=== PATIENT | male | born 1955 | race Caucasian/White ===

== ENCOUNTER 2022-04-28 15:18 | Inpatient (IN) | payer MEDICARE, OTHER ==
[~2022-04-28] VITALS: Ht 165.1 cm; Wt 78.0 kg
--- NOTE | 2022-04-28 15:45 | NUR ---
WITH TRACH TO MECHINCAL VENT SITTING AC 10 FIO2 40% PEEP 5 TV 500
--- NOTE | 2022-04-28 15:46 | NUR ---
RT AT BEDSIDE FOR VENT SETUP
--- NOTE | 2022-04-28 15:58 | NUR ---
called анна at [facility]. pt. needs to be seen and evaluated by MD before sending him back to facility if stable. facility contact number [phone]
--- NOTE | 2022-04-28 16:30 | NUR ---
INSERTED ANGO CATH # 20 ON LT HAND PATENT WILL BLOOD DROW AND SENT TO LAB
--- NOTE | 2022-04-28 16:55 | NUR ---
BLOOD CULTURE # 2 BLOOD DROW BY LAB TACH
[2022-04-28] MEDS ORDERED: VANCOMYCIN 1 GM in IV D5W 250 ML IV ONE (17:00)
[2022-04-28 17:16] LABS: BASOPHILS % (AUTO) 0.2 % (0.0-2.0); HEMATOCRIT 29 % (39-51); HEMOGLOBIN 9.2 g/dL (13.5-17.5); LYMPHOCYTES % (AUTO) 10.7 % (20.0-44.0); MEAN CORPUSCULAR HGB CONC 31 g/dl (31.0-36.0); MEAN CORPUSCULAR VOLUME 93 fL (80-96); MONOCYTES % (AUTO) 5.4 % (2.0-12.0); NEUTROPHILS # (AUTO) 15.4 K/uL (1.8-8.9); NEUTROPHILS % (AUTO) 82.7 % (43.0-81.0); PLATELET COUNT (AUTO) 501 K/uL (150-450); RED BLOOD CELL COUNT(AUTO) 3.16 MIL/uL (4.5-6.0); WHITE BLOOD COUNT (AUTO) 18.6 K/uL (4.3-11.0)
[2022-04-28 17:25] LABS: CALCIUM, SERUM 8.5 mg/dL (8.5-10.1); CREATININE 2.9 mg/dL (0.6-1.3)
--- NOTE | 2022-04-28 17:55 | NUR ---
US AT BED SIDE FOR RT ARM SWALLEN AND REDNESS
--- NOTE | 2022-04-28 18:34 | NUR ---
VITAL SIGNS WITHIN NORMAL LIMITS.
--- NOTE | 2022-04-28 19:30 | NUR ---
ARABELLA PICKARD SENT TO LAB
--- NOTE | 2022-04-28 19:34 | NUR ---
HAND OFF LARA CAT
[2022-04-28 19:58] LABS: BAND % (MANUAL) 3 % (0.0-5.0); LYMPHOCYTES % (MANUAL) 17 % (16-48); MONOCYTES % (MANUAL) 8 % (0-11.0); NEUTROPHILS % (MANUAL) 72 (42-76)
[2022-04-28] MEDS ORDERED: ONDANSETRON HCL/PF 4 MG/2 ML VIAL IVP PRN (22:00)
[2022-04-28] MEDS ORDERED: MAGNESIUM HYDROXIDE 30 ML UDC PO PRN (22:00)
[2022-04-28] MEDS ORDERED: MAG HYDROX/AL HYDROX/SIMETH 30 ML UDC PO PRN (22:00)
[2022-04-28] MEDS ORDERED: ZOLPIDEM TARTRATE 5 MG TABLET PO PRN (22:00)
[2022-04-28] MEDS ORDERED: Z GUARD REMEDY 4 OZ OINT TP PRN (22:00)
[2022-04-28] MEDS ORDERED: ACETAMINOPHEN 325 MG TABLET PO PRN (22:00)
[2022-04-29] MEDS ORDERED: PIPERACILLIN /TAZOBACTAM 3.375 G in IV D5W 50 ML IV SCH ×2
--- NOTE | 2022-04-29 00:09 | NUR ---
REPORT GIVEN TO ABIMBOLA CAT FOR JOSUE
[2022-04-29] MEDS ORDERED: FOLI0.8T2 GT (00:21)
[2022-04-29] MEDS ORDERED: HYDR100T27 GT (00:21)
[2022-04-29] MEDS ORDERED: ACET-868 GT (00:21)
[2022-04-29] MEDS ORDERED: HYDR-4076 GT (00:21)
[2022-04-29] MEDS ORDERED: LEVO25TA7 GT (00:21)
[2022-04-29] MEDS ORDERED: ATOR10TA GT (00:21)
[2022-04-29] MEDS ORDERED: INSU100V7 SQ (00:21)
[2022-04-29] MEDS ORDERED: POLY17PO4 GT (00:21)
[2022-04-29] MEDS ORDERED: DEXT15DR6 EACHEYE (00:21)
[2022-04-29] MEDS ORDERED: HYDR-500 GT (00:21)
[2022-04-29] MEDS ORDERED: DOCU-141 GT (00:21)
[2022-04-29] MEDS ORDERED: IPRA3AMP23 IH (00:21)
[2022-04-29] MEDS ORDERED: HEPA500014 SQ (00:21)
[2022-04-29 00:40] VITALS: BP 127/78
--- NOTE | 2022-04-29 01:00 | NUR ---
UROLOGY PHYSICIAN ASSISTANT OPENING NOTE PATIENT ARRIVED ON UNIT, PATIENT NON-VERBAL BUT ABLE TO UNDERSTAND [place] AND NOD HIS HEAD TO YES OR NO QUESTIONS. PT ON MECHANICAL VENT WITH SETTINGS AC 10, FIO2 40%, PEEP 5, TV 500, TOLERATING WELL, SPO2: 99%. PATIENT CONNECT TO EXTERNAL ENTREPRENEURSHIP PROGRAM DIRECTOR READING SINUS RHYTHM, HR: 78. IV ACCESS ON LEFT HAND #20G INTACT AND FLUSHING WELL. PATIENT NOTED WITH GTF, AUSCULTATED TO CONFIRM PLACEMENT. PATIENT NOTED WITH RIGHT FEMORAL HD CATH. PATIENT HAS NO BELONGINGS. PATIENT NOTED WITH LEFT BIG TOE AMPUTATION, RIGHT UPPER ARM REDNESS AND SWELLING, GROIN AND ABDOMINAL FOLD REDNESS AND SACRAL REDNESS, PT ALSO NOTED WITH DRY AND PEELING SKIN THROUGHOUT BODY, PHOTOS TAKEN. SAFETY MEASURES IN PLACE: CALL LIGHT WITHIN REACH, SIDE RAILS UP X 3, HOB ELEVATED, BED ALARM ON, BED LOCKED IN LOWEST POSITION. WILL CONTINUE TO MONITOR PATIENT
[2022-04-29] MEDS ORDERED: PIPERACILLIN /TAZOBACTAM 2.25 G VIAL IV ONE ×2 (01:27→06:16)
[2022-04-29] MEDS: ZOSYN IVPB 2.25 G in IV D5W 50ml IV SCH ×4 (01:39→17:22)
[2022-04-29] MEDS ORDERED: POTASSIUM CHLORIDE 20 MEQ POWDER PACKET GT ONE (02:00)
[2022-04-29] MEDS ORDERED: DEXTROSE 50%-WATER 50 ML DISP.SYRIN IV PRN (02:00)
[2022-04-29] MEDS ORDERED: HYDROCODONE/APAP 10/325MG TABLET PO PRN (02:00)
[2022-04-29] MEDS ORDERED: ACETAMINOPHEN 325 MG TABLET MC PRN (02:00)
[2022-04-29] MEDS ORDERED: Medication Not On Formulary EA (Ipratropium/Albuterol Sulfate (Duoneb 2.5-0.5 Mg/3 Ml So IH PRN (02:00)
[2022-04-29] MEDS ORDERED: hydrALAZINE HCL 50 MG TABLET GT PRN (02:30)
[2022-04-29] MEDS ORDERED: ALBUTEROL FS 2.5 MG/0.5 ML VIAL.NEB NEB PRN (02:30)
[2022-04-29] MEDS ORDERED: IPRATROPIUM NEB FS 0.5 MG/2.5 ML AMPUL.NEB IH PRN (02:30)
[2022-04-29] MEDS: NEPRO 1,000 ML BOTTLE GT PRN (03:35)
--- NOTE | 2022-04-29 03:58 | NUR ---
TROMMEL TENDER NOTE CONTACTED OIL WELL CABLE TOOL DRILLER MD REGARDING LAB POTASSIUM 3.0, ALSO REGARDING SLIDING SCALE INSULIN AND GT FEEDING, WELL AT VTE PROPHYLAXIS AND PAIN MEDICATION FOR RIGHT UPPER ARM. ORDER FOR KCL 20 MEQ VIA GTUBE, NEPRO @ 65 ML/HR X 16 HOURS, ACCU CHECK Q6H, MODERATE SLIDING SCALE, HEPARIN 5,000 UNITS Q12H STARTING IN AM, AND NORCO 10-325 MG Q6H PRN. ORDERS VERIFIED AND CARRIED OUT
[2022-04-29 04:00] VITALS: BP 100/60
[2022-04-29] MEDS: hydrOXYzine HCL SYRUP 10 MG/5 ML UDC GT SCH ×3 (05:00→21:32)
[2022-04-29] MEDS: hydrALAZINE HCL 25 MG TABLET GT SCH ×3 (05:00→21:00)
[2022-04-29] MEDS ORDERED: hydrOXYzine PAMOATE 25 MG CAPSULE ONE (05:13)
[2022-04-29 06:08] LABS: BASOPHILS % (AUTO) 0.2 % (0.0-2.0); EOSINOPHILS % (AUTO) 1.2 % (0.0-6.0); HEMATOCRIT 27 % (39-51); HEMOGLOBIN 8.6 g/dL (13.5-17.5); LYMPHOCYTES # (AUTO) 1.6 K/uL (0.8-4.8); LYMPHOCYTES % (AUTO) 10.8 % (20.0-44.0); MEAN CORPUSCULAR HGB CONC 32 g/dl (31.0-36.0); MEAN CORPUSCULAR VOLUME 92 fL (80-96); MONOCYTES # (AUTO) 0.9 K/uL (0.1-1.30); MONOCYTES % (AUTO) 6.4 % (2.0-12.0); NEUTROPHILS # (AUTO) 11.8 K/uL (1.8-8.9); NEUTROPHILS % (AUTO) 81.4 % (43.0-81.0); PLATELET COUNT (AUTO) 425 K/uL (150-450); RED BLOOD CELL COUNT(AUTO) 2.88 MIL/uL (4.5-6.0); WHITE BLOOD COUNT (AUTO) 14.5 K/uL (4.3-11.0)
--- NOTE | 2022-04-29 06:26 | NUR ---
ELECTRICAL PROSPECTING OPERATOR NOTE ATARAX MEDICATION NOT AVAILABLE IN [facility], FAXED ORDER TO NURSING BRANDS EDITOR BUT MEDICATION NOT AVAILABLE ON OTHER FLOORS, UNABLE TO GIVE MEDICATION. WILL ENDORSE TO DAYSHIFT RN TO CONTACT PHARMACY
[2022-04-29 06:35] LABS: CALCIUM, SERUM 8.7 mg/dL (8.5-10.1); CREATININE 3.8 mg/dL (0.6-1.3); MAGNESIUM 2.3 mg/dL (1.8-2.4); PHOSPHORUS 3.4 mg/dL (2.5-4.9); POTASSIUM 3.5 mmol/L (3.5-5.1)
[2022-04-29] MEDS: INSULIN REGULAR, HUMAN 100 UNIT/ML 3 ML VIAL SQ PRN ×3 (06:58→17:21)
[2022-04-29] MEDS: BLOOD SUGAR DIAGNOSTIC 1 EACH STRIP IN SCH ×3 (07:00→17:11)
--- NOTE | 2022-04-29 07:35 | NUR ---
ROPE TIER CLOSING NOTE PATIENT AWAKE IN BED, ALERT/ORIENTED TO NAME, PT NON-VERBAL BUT ABLE TO NOD HEAD TO YES/NO QUESTIONS. PT ON MECHANICAL VENT AND TOLERATING SETTINGS WELL, NO S/S OF DISTRESS OR SOB NOTED, BREATHING EVEN AND UNLABORED, SPO2: 98%. PATIENT ON ETERNAL BRAZING MACHINE OPERATOR AUTOMATIC READING SINUS RHYTHM, HR: 63. PATIENT HAS GT FEEDING NEPRO INFUSING @ 65 ML/HR X 16 H. IV ACCESS ON LEFT HAND #20G INTACT AND INFUSING ZOSYN @ 100 ML/HR. MEDICATIONS GIVEN ORDERED, PT NEEDS MET THROUGHOUT SHIFT, PT TURNED Q2H. SAFETY MEASURES IN PLACE: CALL LIGHT WITHIN REACH, SIDE RAILS UP X 3, BED LOCKED IN LOWEST POSITION, HOB ELEVATED, BED ALARM ON. ENDORSED TO DAYSHIFT RN FOR CONTINUITY OF CARE
--- NOTE | 2022-04-29 07:50 | NUR ---
MIXER WET POUR OPENING NOTE PATIENT IS ASLEEP IN BED; EASILY BEING AROUSED, A/O X1, PT NON-VERBAL BUT ABLE TO NOD HEAD TO YES/NO QUESTIONS. PT ON MECHANICAL VENT AND TOLERATING SETTINGS WELL, NO S/S OF DISTRESS OR SOB NOTED, BREATHING EVEN AND NONLABORED. PATIENT ON EXTERNAL DAIRY ASSOCIATE. PATIENT HAS GT FEEDING NEPRO INFUSING @ 65 ML/HR X 16 H. IV ACCESS ON LEFT HAND #20G. SAFETY PRECAUTIONS IMPLEMENTED: CALL LIGHT AND TABLE WITHIN REACH, HOB ELEVATED. SIDE RAILS UP X 2, BED IN LOWEST AND LOCKED POSITION. WILL CONTINUE MONITOR PATIENT'S CONDITION THROUGH THE SHIFT AND PROVIDE THE CARE HE NEEDS.
[2022-04-29 08:00] VITALS: BP 110/61
[2022-04-29 08:08] LABS: IRON, SERUM 30 ug/dl (50-175); TOTAL IRON BINDING CAPACITY 89 ug/dl (250-450)
[2022-04-29] MEDS: POLYETHYLENE GLYCOL 3350 17 GM POWD.PACK GT SCH (08:17)
[2022-04-29] MEDS: POLYVINYL ALCOHOL 15 ML BOTTLE EACHEYE SCH ×4 (08:17→22:04)
[2022-04-29] MEDS: DOCUSATE SODIUM LIQ 100 MG/10 ML UDC GT SCH ×2 (08:17→16:05)
[2022-04-29] MEDS: VIT B CMPLX 3/FA/VIT C/BIOTIN 1 TAB TABLET GT SCH (08:17)
[2022-04-29] MEDS: LEVOTHYROXINE SODIUM 25 MCG TABLET GT SCH (08:18)
[2022-04-29] MEDS: HEPARIN SODIUM, PORCINE 5000 UNITS/1 ML VIAL SQ SCH ×2 (08:19→21:38)
[2022-04-29] MEDS ORDERED: POLY15DR40 EACHEYE (08:20)
[2022-04-29] MEDS ORDERED: CHLO473M5 MM (08:20)
[2022-04-29] MEDS ORDERED: ACET-2605 PO (08:20)
[2022-04-29] MEDS ORDERED: NUT.237L85 GT (08:20)
[2022-04-29] MEDS ORDERED: Medication Not On Formulary EA (Heparin Sodium,Porcine (Heparin Sodium) 5,000 UNIT) IJ SCH (09:00)
[2022-04-29 12:00] VITALS: BP 106/51
[2022-04-29 16:00] VITALS: BP 124/42
[2022-04-29] MEDS ORDERED: VANCOMYCIN HCL 0.75 GM in IV D5W 250 ML IV SCH (17:00)
[2022-04-29] MEDS ORDERED: VANCOMYCIN 500 MG in IV D5W 100ml IV SCH (17:00)
--- NOTE | 2022-04-29 18:50 | NUR ---
HOUSE MANAGER CLOSING NOTE PATIENT AWAKE IN BED, A/O X1 , PT NON-VERBAL BUT ABLE TO NOD HEAD TO YES/NO QUESTIONS. PT ON MECHANICAL VENT AND TOLERATING SETTINGS WELL, NO S/S OF DISTRESS OR SOB NOTED, BREATHING EVEN AND NON LABORED. PATIENT ON EXTERNAL STORE OPERATIONS MANAGER READING SINUS RHYTHM @ 65 BPM. PATIENT HAS GT FEEDING NEPRO INFUSING @ 65 ML/HR X 16 H. IV ACCESS ON LEFT HAND #20G INTACT, SL. MEDICATIONS GIVEN ORDERED, PT NEEDS MET THROUGHOUT SHIFT, PT TURNED Q2H. SAFETY MEASURES IN PLACE: CALL LIGHT WITHIN REACH, SIDE RAILS UP X 3, BED LOCKED IN LOWEST POSITION, HOB ELEVATED, BED ALARM ON. ENDORSED TO MECHANIC WELDER NURSE FOR JOSUE.
--- NOTE | 2022-04-29 19:44 | NUR ---
EASEMENT MAN OPENING NOTE PATIENT IN BED WITH EYES CLOSED, ALERT/ORIENTED TO NAME, PT NON-VERBAL BUT ABLE TO NOD HEAD TO YES/NO QUESTIONS. PT ON MECHANICAL VENT AND TOLERATING SETTINGS WELL, NO S/S OF DISTRESS OR SOB NOTED, BREATHING EVEN AND UNLABORED, SPO2: 99%. PATIENT ON ETERNAL DEVELOPMENTAL PSYCHOLOGIST READING SINUS RHYTHM, HR: 63. PATIENT HAS GT FEEDING NEPRO INFUSING @ 65 ML/HR X 16 H TO BE TURNED OFF AT 2000 AND BACK ON AT 0400. SAFETY MEASURES IN PLACE: CALL LIGHT WITHIN REACH, SIDE RAILS UP X 3, BED LOCKED IN LOWEST POSITION, HOB ELEVATED, BED ALARM ON. WILL CONTINUE TO MONITOR PATIENT
[2022-04-29 20:00] VITALS: BP 105/60
[2022-04-29] MEDS: ATORVASTATIN 10 MG TABLET GT SCH (21:32)
[2022-04-29] MEDS: INSULIN GLARGINE, 100 UNIT/ML CARTRIDGE SQ SCH (22:47)
[2022-04-30] VITALS: BP 109/63
[2022-04-30] MEDS: BLOOD SUGAR DIAGNOSTIC 1 EACH STRIP IN SCH ×4 (00:24→17:08)
[2022-04-30] MEDS: ZOSYN IVPB 2.25 G in IV D5W 50ml IV SCH ×4 (00:24→17:24)
[2022-04-30] MEDS: INSULIN REGULAR, HUMAN 100 UNIT/ML 3 ML VIAL SQ PRN ×4 (00:43→17:08)
[2022-04-30 04:00] VITALS: BP 114/68
[2022-04-30] MEDS: hydrALAZINE HCL 25 MG TABLET GT SCH ×3 (05:00→21:25)
[2022-04-30] MEDS: hydrOXYzine HCL SYRUP 10 MG/5 ML UDC GT SCH ×3 (05:39→21:27)
[2022-04-30 07:03] LABS: BASOPHILS % (AUTO) 0.4 % (0.0-2.0); HEMATOCRIT 25 % (39-51); HEMOGLOBIN 8.3 g/dL (13.5-17.5); LYMPHOCYTES % (AUTO) 16.3 % (20.0-44.0); MEAN CORPUSCULAR HGB CONC 33 g/dl (31.0-36.0); MEAN CORPUSCULAR VOLUME 92 fL (80-96); MONOCYTES # (AUTO) 0.7 K/uL (0.1-1.30); MONOCYTES % (AUTO) 5.4 % (2.0-12.0); NEUTROPHILS % (AUTO) 74.9 % (43.0-81.0); PLATELET COUNT (AUTO) 457 K/uL (150-450); RED BLOOD CELL COUNT(AUTO) 2.76 MIL/uL (4.5-6.0); WHITE BLOOD COUNT (AUTO) 12.1 K/uL (4.3-11.0)
--- NOTE | 2022-04-30 07:04 | NUR ---
DIRECTOR TRANSITION CLOSING NOTE PATIENT SLEEPING IN BED, ALERT/ORIENTED TO NAME, PT NON-VERBAL BUT ABLE TO NOD HEAD TO YES/NO QUESTIONS. PT ON MECHANICAL VENT AND TOLERATING SETTINGS WELL, NO S/S OF DISTRESS OR SOB NOTED, BREATHING EVEN AND UNLABORED, SPO2: 100%. PATIENT ON ETERNAL EXECUTIVE SECRETARY SOCIAL WELFARE READING SINUS RHYTHM, HR: 62. PATIENT HAS GT FEEDING NEPRO INFUSING @ 65 ML/HR X 16 H. IV ACCESS ON LEFT HAND #20G INTACT AND SALINE LOCKED. MEDICATIONS GIVEN ORDERED, PT NEEDS MET THROUGHOUT SHIFT, PT TURNED Q2H. SAFETY MEASURES IN PLACE: CALL LIGHT WITHIN REACH, SIDE RAILS UP X 3, BED LOCKED IN LOWEST POSITION, HOB ELEVATED, BED ALARM ON. ENDORSED TO DAYSHIFT RN FOR CONTINUITY OF CARE
[2022-04-30 07:15] LABS: CALCIUM, SERUM 9.1 mg/dL (8.5-10.1); CREATININE 5.1 mg/dL (0.6-1.3); MAGNESIUM 2.5 mg/dL (1.8-2.4); PHOSPHORUS 5.3 mg/dL (2.5-4.9); POTASSIUM 3.7 mmol/L (3.5-5.1)
--- NOTE | 2022-04-30 07:45 | NUR ---
SECURITY SYSTEMS INTEGRATOR OPENING NOTE RECEIVED PATIENT IS ASLEEP IN BED; EASILY BEING AROUSED, A/O X1, PT NON-VERBAL BUT ABLE TO NOD HEAD TO YES/NO QUESTIONS. PT ON MECHANICAL VENT AND TOLERATING SETTINGS WELL, NO S/S OF DISTRESS OR SOB NOTED, BREATHING EVEN AND NONLABORED. PATIENT ON EXTERNAL HAIR SPINNING MACHINE OPERATOR. PATIENT HAS GT FEEDING NEPRO INFUSING @ 65 ML/HR X 16 H. IV ACCESS ON LEFT HAND #20G. SAFETY PRECAUTIONS IMPLEMENTED: CALL LIGHT AND TABLE WITHIN REACH, HOB ELEVATED. SIDE RAILS UP X 3, BED IN LOWEST AND LOCKED POSITION. WILL CONTINUE MONITOR PATIENT'S CONDITION THROUGH THE SHIFT AND PROVIDE THE CARE.
[2022-04-30 08:00] VITALS: BP 99/61
[2022-04-30] MEDS: POLYETHYLENE GLYCOL 3350 17 GM POWD.PACK GT SCH (08:20)
[2022-04-30] MEDS: DOCUSATE SODIUM LIQ 100 MG/10 ML UDC GT SCH ×2 (08:21→16:36)
[2022-04-30] MEDS: VIT B CMPLX 3/FA/VIT C/BIOTIN 1 TAB TABLET GT SCH (08:21)
[2022-04-30] MEDS: POLYVINYL ALCOHOL 15 ML BOTTLE EACHEYE SCH ×4 (08:21→21:33)
[2022-04-30] MEDS: LEVOTHYROXINE SODIUM 25 MCG TABLET GT SCH (08:21)
[2022-04-30] MEDS: HEPARIN SODIUM, PORCINE 5000 UNITS/1 ML VIAL SQ SCH ×2 (08:24→21:30)
--- NOTE | 2022-04-30 10:02 | NUR ---
WOUND CARE CONSULT: PT PRESENT WITH SACRAL INTACT DEEP TISSUE INJURY WITH SCARRING, GROIN RASH AND RT ARM REDNESS WITH EDEMA, PRESENT ON ADMISSION. RT ARM ELEVATED ON PILLOW. RECOMMENDATIONS MADE FOR SKIN PROTECTION. DISCUSSED WITH NURSING STAFF. FIRST STEP LOW AIRLOSS MATTRESS ORDERED. M D IN AGREEMENT WITH PLAN OF CARE. Addendum: 04/30/22 at 1004 by LUCY HAYNES WNDNU Amended: Links added.
[2022-04-30 12:00] VITALS: BP 124/72
[2022-04-30] MEDS: NEPRO 1,000 ML BOTTLE GT PRN (12:52)
[2022-04-30 16:00] VITALS: BP 120/65
[2022-04-30] MEDS: CLOTRIMAZOLE 1% 15 GM TUBE TP SCH (16:37)
[2022-04-30] MEDS: PROSOURCE / PROSTAT (PYXIS) 30 ML UDC GT SCH (16:50)
--- NOTE | 2022-04-30 18:50 | NUR ---
ROLL FORMING SUPERVISOR CLOSING NOTE PATIENT ASLEEP IN BED, EASILY BEING AROUSED. A/O X1 , PT NON-VERBAL BUT ABLE TO NOD HEAD TO YES/NO QUESTIONS. PT ON MECHANICAL VENT AND TOLERATING SETTINGS WELL, NO S/S OF DISTRESS OR SOB NOTED, BREATHING EVEN AND NON LABORED. PATIENT ON EXTERNAL BOILER TUBE BLOWER READING SINUS RHYTHM @ 65 BPM. PATIENT HAS GT FEEDING NEPRO INFUSING @ 65 ML/HR X 16 H. IV ACCESS ON LEFT HAND #20G INTACT, SL. MEDICATIONS GIVEN ORDERED, PT NEEDS MET THROUGHOUT SHIFT, PT TURNED Q2H. SAFETY MEASURES IN PLACE: CALL LIGHT WITHIN REACH, SIDE RAILS UP X 3, BED LOCKED IN LOWEST POSITION, HOB ELEVATED, BED ALARM ON. ENDORSED TO JACQUARD PLATE MAKER NURSE FOR JOSUE.
--- NOTE | 2022-04-30 19:30 | NUR ---
noc rn opening received patient in bed. alert and oriented and able to communicate by nodding and mouthing words. with tract-- vent dependent. no s/s of apparent distress. denies any pain at this time. reading sr in the tele monitor at this time with 63 bpm. Rt. arm noted to be red and swollen, warm to touch. GT-feeding Nepro running @65mls/hr. Lt. hand @20g on saline lock and R. femoral HD cath noted in place. safety in place. will continue with patient's plan of care.
[2022-04-30 20:00] VITALS: BP 122/63
[2022-04-30] MEDS: MUPIROCIN OINT 2% 22 GM TUBE NS SCH (21:28)
[2022-04-30] MEDS: ATORVASTATIN 10 MG TABLET GT SCH (21:30)
[2022-04-30] MEDS: INSULIN GLARGINE, 100 UNIT/ML CARTRIDGE SQ SCH (22:36)
[2022-05-01] VITALS: BP 125/63
[2022-05-01] MEDS: BLOOD SUGAR DIAGNOSTIC 1 EACH STRIP IN SCH ×5 (00:02→23:26)
[2022-05-01] MEDS: INSULIN REGULAR, HUMAN 100 UNIT/ML 3 ML VIAL SQ PRN ×5 (00:23→23:30)
[2022-05-01] MEDS: ZOSYN IVPB 2.25 G in IV D5W 50ml IV SCH ×5 (00:25→23:56)
[2022-05-01 04:00] VITALS: BP 116/66
[2022-05-01] MEDS: hydrALAZINE HCL 25 MG TABLET GT SCH ×3 (05:00→21:03)
[2022-05-01] MEDS: hydrOXYzine HCL SYRUP 10 MG/5 ML UDC GT SCH ×3 (05:09→21:04)
--- NOTE | 2022-05-01 05:09 | NUR ---
jh rn note- non-admin sched apresoline non-admin d/t scheduled dialysis today . [id number]
--- NOTE | 2022-05-01 06:05 | NUR ---
jh rn opening received patient in bed. alert and oriented and able to communicate by nodding and mouthing words. with tract-- vent dependent. no s/s of apparent distress. denies any pain at this time. reading sr in the tele monitor at this time with 63 bpm. Rt. arm noted to be red and swollen, warm to touch. GT-feeding Nepro running @65mls/hr. Lt. hand @20g on saline lock and R. femoral HD cath noted in place. safety in place. will continue with patient's plan of care. Addendum: 05/01/22 at 0609 by SIMON LACEY RN disregard. wrong time.
[2022-05-01 06:08] LABS: CALCIUM, SERUM 8.7 mg/dL (8.5-10.1); MAGNESIUM 2.6 mg/dL (1.8-2.4); PHOSPHORUS 5.6 mg/dL (2.5-4.9); POTASSIUM 3.9 mmol/L (3.5-5.1)
[2022-05-01 06:19] LABS: BASOPHILS # (AUTO) 0.1 K/uL (0.0-0.2); BASOPHILS % (AUTO) 0.6 % (0.0-2.0); EOSINOPHILS % (AUTO) 2.9 % (0.0-6.0); HEMATOCRIT 26 % (39-51); HEMOGLOBIN 8.5 g/dL (13.5-17.5); LYMPHOCYTES # (AUTO) 1.9 K/uL (0.8-4.8); LYMPHOCYTES % (AUTO) 16.6 % (20.0-44.0); MEAN CORPUSCULAR HGB CONC 33 g/dl (31.0-36.0); MEAN CORPUSCULAR VOLUME 92 fL (80-96); MONOCYTES # (AUTO) 0.5 K/uL (0.1-1.30); MONOCYTES % (AUTO) 3.9 % (2.0-12.0); NEUTROPHILS # (AUTO) 8.8 K/uL (1.8-8.9); PLATELET COUNT (AUTO) 456 K/uL (150-450); RED BLOOD CELL COUNT(AUTO) 2.82 MIL/uL (4.5-6.0); WHITE BLOOD COUNT (AUTO) 11.6 K/uL (4.3-11.0)
[2022-05-01] MEDS: LEVOTHYROXINE SODIUM 25 MCG TABLET GT SCH (07:08)
--- NOTE | 2022-05-01 07:32 | NUR ---
noc rn closing needs attended. report given to STEPHANIA Hernandes for continuity of patient care.
--- NOTE | 2022-05-01 07:45 | NUR ---
SURVEY QUESTIONNAIRE DESIGNER OPENING NOTE PATIENT IS ASLEEP IN BED; EASILY BEING AROUSED, A/O X1, PT NON-VERBAL BUT ABLE TO NOD HEAD TO YES/NO QUESTIONS. PT ON MECHANICAL VENT AND TOLERATING SETTINGS WELL, NO S/S OF DISTRESS OR SOB NOTED, BREATHING EVEN AND NONLABORED. PATIENT ON EXTERNAL WEB DEVELOPMENT DIRECTOR. PATIENT HAS GT FEEDING NEPRO INFUSING @ 65 ML/HR X 16 H. IV ACCESS ON LEFT HAND #20G, INTACT, PATENT AND FLUSHING WELL. SAFETY PRECAUTIONS IMPLEMENTED: CALL LIGHT AND TABLE WITHIN REACH, HOB ELEVATED. SIDE RAILS UP X 3, BED IN LOWEST AND LOCKED POSITION. WILL CONTINUE MONITOR PATIENT'S CONDITION THROUGH THE SHIFT AND PROVIDE THE CARE.
[2022-05-01] MEDS: CLOTRIMAZOLE 1% 15 GM TUBE TP SCH ×2 (09:20→16:59)
[2022-05-01] MEDS: POLYETHYLENE GLYCOL 3350 17 GM POWD.PACK GT SCH (09:20)
[2022-05-01] MEDS: POLYVINYL ALCOHOL 15 ML BOTTLE EACHEYE SCH ×4 (09:20→21:05)
[2022-05-01] MEDS: VIT B CMPLX 3/FA/VIT C/BIOTIN 1 TAB TABLET GT SCH (09:21)
[2022-05-01] MEDS: DOCUSATE SODIUM LIQ 100 MG/10 ML UDC GT SCH ×2 (09:21→16:58)
[2022-05-01] MEDS: HEPARIN SODIUM, PORCINE 5000 UNITS/1 ML VIAL SQ SCH ×2 (09:22→21:07)
[2022-05-01] MEDS: PROSOURCE / PROSTAT (PYXIS) 30 ML UDC GT SCH ×3 (09:23→16:58)
[2022-05-01] MEDS: MUPIROCIN OINT 2% 22 GM TUBE NS SCH ×2 (09:26→21:05)
[2022-05-01 11:03] LABS: BAND % (MANUAL) 4 % (0.0-5.0); EOSINOPHILS % (MANUAL) 3 % (0-4); LYMPHOCYTES % (MANUAL) 21 % (16-48); MONOCYTES % (MANUAL) 3 % (0-11.0); NEUTROPHILS % (MANUAL) 69 (42-76)
[2022-05-01] MEDS: NEPRO 1,000 ML BOTTLE GT PRN (15:51)
--- NOTE | 2022-05-01 19:05 | NUR ---
LAND ECONOMIST CLOSING NOTE PATIENT ASLEEP IN BED, EASILY BEING AROUSED. A/O X1 , PT NON-VERBAL BUT ABLE TO NOD HEAD TO YES/NO QUESTIONS. PT ON MECHANICAL VENT AND TOLERATING SETTINGS WELL, NO S/S OF DISTRESS OR SOB NOTED, BREATHING EVEN AND NON LABORED. PATIENT ON EXTERNAL HOOP DRIVING MACHINE OPERATOR READING SINUS RHYTHM @ 60 BPM. PATIENT HAS GT FEEDING NEPRO INFUSING @ 65 ML/HR X 16 H. IV ACCESS ON LEFT HAND #20G INTACT, SL. PT ON EXTERNAL HOOP DRIVING MACHINE OPERATOR. MEDICATIONS GIVEN ORDERED, PT NEEDS MET THROUGHOUT SHIFT. PT HAD HD TODAY, REMOVED 2 L. PT TURNED Q2H. PT KEPT CLEAN AND DRY. SAFETY MEASURES IMPLEMENTED. ALL NEEDS MET AND ATTENDED. ALL ORDERS CARRIED OUT. WILL ENDORSED TO SEA AIR LAND OFFICER NURSE FOR JOSUE.
--- NOTE | 2022-05-01 19:30 | NUR ---
noc rn opening received patient in bed. alert and oriented and able to communicate by nodding and mouthing words. with tract-- vent dependent. no s/s of apparent distress. denies any pain at this time. reading sr in the tele monitor at this time with 64 bpm. Rt. arm noted to be red and swollen, warm to touch. GT-feeding Nepro running @65mls/hr. Lt. hand @20g on saline lock and R. femoral HD cath noted in place. safety in place. will continue with patient's plan of care.
[2022-05-01 20:00] VITALS: BP 119/68
[2022-05-01] MEDS: ATORVASTATIN 10 MG TABLET GT SCH (21:13)
[2022-05-01] MEDS: INSULIN GLARGINE, 100 UNIT/ML CARTRIDGE SQ SCH (23:26)
[2022-05-02] MEDS: hydrALAZINE HCL 25 MG TABLET GT SCH ×2 (05:25→13:15)
[2022-05-02] MEDS: hydrOXYzine HCL SYRUP 10 MG/5 ML UDC GT SCH ×2 (05:28→13:15)
[2022-05-02 05:58] LABS: BASOPHILS # (AUTO) 0.1 K/uL (0.0-0.2); BASOPHILS % (AUTO) 0.5 % (0.0-2.0); EOSINOPHILS % (AUTO) 2.6 % (0.0-6.0); HEMATOCRIT 27 % (39-51); HEMOGLOBIN 8.8 g/dL (13.5-17.5); LYMPHOCYTES # (AUTO) 1.9 K/uL (0.8-4.8); LYMPHOCYTES % (AUTO) 16.2 % (20.0-44.0); MEAN CORPUSCULAR HGB CONC 33 g/dl (31.0-36.0); MEAN CORPUSCULAR VOLUME 91 fL (80-96); MONOCYTES # (AUTO) 0.5 K/uL (0.1-1.30); NEUTROPHILS # (AUTO) 8.8 K/uL (1.8-8.9); NEUTROPHILS % (AUTO) 76.7 % (43.0-81.0); PLATELET COUNT (AUTO) 473 K/uL (150-450); RED BLOOD CELL COUNT(AUTO) 2.92 MIL/uL (4.5-6.0); WHITE BLOOD COUNT (AUTO) 11.5 K/uL (4.3-11.0)
[2022-05-02] MEDS: INSULIN REGULAR, HUMAN 100 UNIT/ML 3 ML VIAL SQ PRN ×2 (05:58→13:20)
[2022-05-02] MEDS: BLOOD SUGAR DIAGNOSTIC 1 EACH STRIP IN SCH ×2 (05:58→12:24)
[2022-05-02] MEDS: ZOSYN IVPB 2.25 G in IV D5W 50ml IV SCH ×2 (06:01→12:24)
[2022-05-02] MEDS: LEVOTHYROXINE SODIUM 25 MCG TABLET GT SCH (06:01)
[2022-05-02 06:47] LABS: CALCIUM, SERUM 9.2 mg/dL (8.5-10.1); CREATININE 4.6 mg/dL (0.6-1.3); MAGNESIUM 2.5 mg/dL (1.8-2.4); PHOSPHORUS 4.7 mg/dL (2.5-4.9); POTASSIUM 3.6 mmol/L (3.5-5.1)
--- NOTE | 2022-05-02 07:37 | NUR ---
noc rn closing needs attended. report given to STEPHANIA Last for continuity of patient care.
--- NOTE | 2022-05-02 08:01 | NUR ---
RN Receiving Report. Not able to assess pts mental status. Patient in bed with no signs of distress or discomfort. All safety precautions taken, call light and table within reach, bed at lowest position. Patients vital signs stable, oxygen saturation 100%, no signs of respiratory distress.
[2022-05-02] MEDS: CLOTRIMAZOLE 1% 15 GM TUBE TP SCH (09:00)
[2022-05-02] MEDS: HEPARIN SODIUM, PORCINE 5000 UNITS/1 ML VIAL SQ SCH (09:49)
[2022-05-02] MEDS: DOCUSATE SODIUM LIQ 100 MG/10 ML UDC GT SCH (09:49)
[2022-05-02] MEDS: VIT B CMPLX 3/FA/VIT C/BIOTIN 1 TAB TABLET GT SCH (09:49)
[2022-05-02] MEDS: POLYETHYLENE GLYCOL 3350 17 GM POWD.PACK GT SCH (09:49)
[2022-05-02] MEDS: MUPIROCIN OINT 2% 22 GM TUBE NS SCH (09:53)
[2022-05-02] MEDS: PROSOURCE / PROSTAT (PYXIS) 30 ML UDC GT SCH ×2 (09:53→13:14)
[2022-05-02] MEDS: POLYVINYL ALCOHOL 15 ML BOTTLE EACHEYE SCH ×3 (09:54→13:23)
--- NOTE | 2022-05-02 12:49 | NUR ---
territory service representative Note Pt is non verbal, understands [place],. Discussed plan of care and discharge back to his previous facility, patient understood and nodded that he agreed with plan of care. Attended patient needs and administered medications as ordered. Patient able to communicate by moving lips, patient would nod yes or no. All safety precautions taken,. call light and table within reach, bed at lowest position. Will follow up on discharge and communicate as needed.
[2022-05-02 13:15] VITALS: BP 142/79
[2022-05-02] MEDS ORDERED: VANC1VIA34 XX (13:52)
[2022-05-02] MEDS ORDERED: HEPA50008 SQ (13:52)
[2022-05-02] MEDS ORDERED: MUPI22OI7 NS (13:52)
[2022-05-02 17:37] LABS: BAND % (MANUAL) 1 % (0.0-5.0); LYMPHOCYTES % (MANUAL) 22 % (16-48); MONOCYTES % (MANUAL) 1 % (0-11.0); NEUTROPHILS % (MANUAL) 76 (42-76)
--- NOTE | 2022-05-02 18:15 | NUR ---
RN D/C Report Patient AOx3, not able to verbalize his concerns. Patient made aware of D/c and agrees. Tranportation her to take patient back to his previous facility. Report given to Peggy at [facility]. Made aware of abx needs. All safety precautions taken, report given to RT.
== END 2022-05-02 18:30 | DRG 602 ==
LOC: ER 15:25 → MED 22:47 → TELE 04-29 00:40
PROVIDERS: ADMIT Nurse Practitioner Acute Care; ATTEND Registered Nurse
PROC: 5A1955Z Respiratory Ventilation, Greater than 96 Consecutive Hours (ICD-10-PCS; principal; 2022-04-28)
PROC: 5A1D70Z Performance of Urinary Filtration, Intermittent, Less than 6 Hours Per Day (ICD-10-PCS; 2022-05-01)
DX: L03.113 Cellulitis of right upper limb (principal); N18.6 End stage renal disease; D68.59 Other primary thrombophilia; J96.10 Chronic respiratory failure, unspecified whether with hypoxia or hypercapnia; E87.1 Hypo-osmolality and hyponatremia; Z99.11 Dependence on respirator [ventilator] status; G93.49 Other encephalopathy; I12.0 Hypertensive chronic kidney disease with stage 5 chronic kidney disease or end stage renal disease; D63.1 Anemia in chronic kidney disease; E11.22 Type 2 diabetes mellitus with diabetic chronic kidney disease; E87.6 Hypokalemia; Z93.1 Gastrostomy status; Z99.2 Dependence on renal dialysis; R13.10 Dysphagia, unspecified; E11.51 Type 2 diabetes mellitus with diabetic peripheral angiopathy without gangrene; G40.909 Epilepsy, unspecified, not intractable, without status epilepticus; I25.2 Old myocardial infarction; Z74.09 Other reduced mobility; Z86.73 Personal history of transient ischemic attack (TIA), and cerebral infarction without residual deficits; Z20.822 Contact with and (suspected) exposure to COVID-19
CPT/HCPCS: 31720; 36415; 71045-TC; 80048-TC; 80202-TC; 82962-TC; 83540-TC; 83605-TC; 83735-TC; 84100-TC; 85025-TC; 86706; 87040-TC; 87081-TC; 87340; 93971-TC; 94003-TC; 94760-TC; 94799-TC; C9803; G0378; J1644; J1815; J2543; J3370; J7030; J7050; J7060; Q0177

== ENCOUNTER 2023-04-06 10:27 | Inpatient (IN) | payer MEDICARE, OTHER ==
[~2023-04-06] VITALS: Ht 172.7 cm; Wt 81.2 kg
[~2023-04-06 10:27] MED LIST: ACET-2605 PO; ACET-868 GT; ATOR10TA GT; CHLO473M5 MM; DOCU-141 GT; FOLI0.8T2 GT; HEPA500014 SQ; HEPA50008 SQ; HYDR-4076 GT; HYDR-500 GT; HYDR100T27 GT; INSU100V7 SQ; IPRA3AMP23 IH; LEVO25TA7 GT; MUPI22OI7 NS; NUT.237L85 GT; POLY15DR40 EACHEYE; POLY17PO4 GT; VANC1VIA34 XX
[2023-04-06] MEDS ORDERED: ONDANSETRON HCL/PF 4 MG/2 ML VIAL IVP ONE (11:00)
[2023-04-06] MEDS ORDERED: ACET-868 PO (11:15)
[2023-04-06] MEDS ORDERED: ONDA4TAB5 GT (11:15)
[2023-04-06] MEDS ORDERED: AMIN30LI2 GT (11:15)
[2023-04-06] MEDS ORDERED: TRIA15OI2 TP (11:15)
[2023-04-06 11:32] LABS: BASOPHILS % (AUTO) 0.3 % (0.0-2.0); EOSINOPHILS # (AUTO) 0.2 K/uL (0.0-0.7); EOSINOPHILS % (AUTO) 1.1 % (0.0-6.0); HEMATOCRIT 30 % (39-51); HEMOGLOBIN 9.9 g/dL (13.5-17.5); LYMPHOCYTES # (AUTO) 0.8 K/uL (0.8-4.8); LYMPHOCYTES % (AUTO) 5.1 % (20.0-44.0); MEAN CORPUSCULAR HEMOGLOBIN 29 PG (26.0-33.0); MEAN CORPUSCULAR HGB CONC 33 g/dl (31.0-36.0); MEAN CORPUSCULAR VOLUME 91 fL (80-96); MONOCYTES # (AUTO) 0.7 K/uL (0.1-1.30); MONOCYTES % (AUTO) 4.3 % (2.0-12.0); NEUTROPHILS # (AUTO) 14.1 K/uL (1.8-8.9); NEUTROPHILS % (AUTO) 89.2 % (43.0-81.0); PLATELET COUNT (AUTO) 437 K/uL (150-450); RED BLOOD CELL COUNT(AUTO) 3.36 MIL/uL (4.5-6.0); RED CELL DISTRIBUTION WIDTH 17.3 % (11.5-15.0); WHITE BLOOD COUNT (AUTO) 15.8 K/uL (4.3-11.0)
[2023-04-06] MEDS ORDERED: ONDANSETRON HCL/PF 4 MG/2 ML VIAL ONE (11:36)
[2023-04-06 12:09] LABS: ALBUMIN 2.5 g/dL (3.4-5.0); BILIRUBIN,DIRECT 0.3 mg/dL (0.0-0.2); BILIRUBIN,TOTAL 0.6 mg/dL (0.2-1.0); CALCIUM, SERUM 8.6 mg/dL (8.5-10.1); CREATININE 3.4 mg/dL (0.6-1.3); POTASSIUM 2.9 mmol/L (3.5-5.1); TOTAL PROTEIN, SERUM 9.3 g/dL (6.4-8.2)
[2023-04-06] MEDS ORDERED: ACETAMINOPHEN 650 MG/20 ML UDC- SA PATIENTS-FEVER ONLY GT PRN (13:00)
[2023-04-06] MEDS ORDERED: POTASSIUM CHLORIDE 20 MEQ TAB.PRT.SR PO ONE (13:30)
[2023-04-06] MEDS ORDERED: METOCLOPRAMIDE HCL 10 MG/2 ML VIAL IV PRN (13:30)
[2023-04-06] MEDS ORDERED: DEXTROSE 50%-WATER 50 ML DISP.SYRIN IV PRN (13:30)
[2023-04-06] MEDS ORDERED: METOCLOPRAMIDE HCL 15 MG in IV NS 0.9% 50 ML IV PRN (13:30)
[2023-04-06] MEDS: ALBUTEROL FS 2.5 MG/0.5 ML VIAL.NEB NEB SCH ×2 (13:30→19:36)
[2023-04-06] MEDS: NEPRO 1,000 ML BOTTLE GT PRN (13:38)
[2023-04-06] MEDS: CEFTRIAXONE 1 G in IV D5W 50 ML IV SCH (14:30)
[2023-04-06] MEDS: AZITHROMYCIN 500 MG in IV D5W 250 ML IV SCH (14:30)
[2023-04-06 17:00] VITALS: BP 85/47; TEMP 101.7; O2SAT 98
[2023-04-06] MEDS: ACETAMINOPHEN 650 MG/20.3 ML UDC GT PRN (17:05)
[2023-04-06] MEDS ORDERED: IV NS 0.9% 500 ML IV ONE (17:30)
[2023-04-06] MEDS: MIDODRINE HCL (5MG) 5 MG TABLET PO SCH (17:37)
[2023-04-06] MEDS: BLOOD SUGAR DIAGNOSTIC 1 EACH STRIP IN SCH ×2 (18:01→22:53)
[2023-04-06] MEDS: INSULIN REGULAR, HUMAN 100 UNIT/ML 3 ML VIAL SQ PRN ×2 (18:01→22:44)
[2023-04-06 20:00] VITALS: BP 116/49; TEMP 99; TEMP 99.1; O2SAT 99
[2023-04-06] MEDS: ATORVASTATIN 10 MG TABLET GT SCH ×2 (21:24→21:56)
[2023-04-07] VITALS: BP_SYST 109; BP_SYST 131; BP_DIAS 50; BP_DIAS 57; TEMP 98.8; TEMP 99; O2SAT 100; O2SAT 99
[2023-04-07 04:00] VITALS: BP 120/58; TEMP 98.8; O2SAT 100
[2023-04-07 05:53] LABS: BASOPHILS % (AUTO) 0.3 % (0.0-2.0); EOSINOPHILS # (AUTO) 0.7 K/uL (0.0-0.7); EOSINOPHILS % (AUTO) 5.6 % (0.0-6.0); HEMATOCRIT 29 % (39-51); HEMOGLOBIN 9.1 g/dL (13.5-17.5); LYMPHOCYTES # (AUTO) 1.3 K/uL (0.8-4.8); LYMPHOCYTES % (AUTO) 11.5 % (20.0-44.0); MEAN CORPUSCULAR HEMOGLOBIN 29 PG (26.0-33.0); MEAN CORPUSCULAR HGB CONC 31 g/dl (31.0-36.0); MEAN CORPUSCULAR VOLUME 93 fL (80-96); MONOCYTES # (AUTO) 0.8 K/uL (0.1-1.30); MONOCYTES % (AUTO) 7.3 % (2.0-12.0); NEUTROPHILS # (AUTO) 8.7 K/uL (1.8-8.9); NEUTROPHILS % (AUTO) 75.3 % (43.0-81.0); PLATELET COUNT (AUTO) 423 K/uL (150-450); RED BLOOD CELL COUNT(AUTO) 3.13 MIL/uL (4.5-6.0); RED CELL DISTRIBUTION WIDTH 17.3 % (11.5-15.0); WHITE BLOOD COUNT (AUTO) 11.6 K/uL (4.3-11.0)
[2023-04-07 05:57] LABS: CALCIUM, SERUM 8.9 mg/dL (8.5-10.1); CREATININE 4.7 mg/dL (0.6-1.3); POTASSIUM 3.5 mmol/L (3.5-5.1)
[2023-04-07] MEDS: ALBUTEROL FS 2.5 MG/0.5 ML VIAL.NEB NEB SCH ×3 (07:50→20:01)
[2023-04-07 08:00] VITALS: BP 135/38; TEMP 99.7; O2SAT 100
[2023-04-07] MEDS: POLYETHYLENE GLYCOL 3350 17 GM POWD.PACK GT SCH (08:04)
[2023-04-07] MEDS: BLOOD SUGAR DIAGNOSTIC 1 EACH STRIP IN SCH ×4 (08:04→22:01)
[2023-04-07] MEDS: LEVOTHYROXINE SODIUM 25 MCG TABLET GT SCH (08:05)
[2023-04-07] MEDS: VIT B CMPLX 3/FA/VIT C/BIOTIN 1 TAB TABLET GT SCH (08:05)
[2023-04-07] MEDS: MIDODRINE HCL (5MG) 5 MG TABLET PO SCH ×3 (08:09→16:23)
[2023-04-07] MEDS: INSULIN REGULAR, HUMAN 100 UNIT/ML 3 ML VIAL SQ PRN ×3 (08:11→22:03)
[2023-04-07 12:00] VITALS: BP 117/68; TEMP 98.2; O2SAT 100
[2023-04-07] MEDS: CEFTRIAXONE 1 G in IV D5W 50 ML IV SCH (14:38)
[2023-04-07] MEDS: AZITHROMYCIN 500 MG in IV D5W 250 ML IV SCH (14:38)
[2023-04-07] MEDS: NEPRO 1,000 ML BOTTLE GT PRN (14:45)
[2023-04-07] MEDS ORDERED: EPOETIN ALFA-EPBX 10,000 UNIT/ML VIAL IV ONE (15:00)
[2023-04-07 16:00] VITALS: BP 150/64; TEMP 99.9; O2SAT 100
[2023-04-07 20:00] VITALS: BP 149/57; TEMP 100.6; O2SAT 100
[2023-04-07] MEDS: ACETAMINOPHEN 650 MG/20.3 ML UDC GT PRN (20:41)
[2023-04-07] MEDS: ATORVASTATIN 10 MG TABLET GT SCH (21:51)
[2023-04-08] VITALS: BP 111/56; TEMP 98.2; O2SAT 100
[2023-04-08 04:00] VITALS: BP 131/57; TEMP 98.3; O2SAT 100
[2023-04-08] MEDS: NEPRO 1,000 ML BOTTLE GT PRN (04:50)
[2023-04-08 06:23] LABS: BASOPHILS % (AUTO) 0.3 % (0.0-2.0); EOSINOPHILS # (AUTO) 0.8 K/uL (0.0-0.7); EOSINOPHILS % (AUTO) 5.7 % (0.0-6.0); HEMATOCRIT 31 % (39-51); HEMOGLOBIN 9.9 g/dL (13.5-17.5); LYMPHOCYTES # (AUTO) 1.5 K/uL (0.8-4.8); LYMPHOCYTES % (AUTO) 10.9 % (20.0-44.0); MEAN CORPUSCULAR HEMOGLOBIN 30 PG (26.0-33.0); MEAN CORPUSCULAR HGB CONC 32 g/dl (31.0-36.0); MEAN CORPUSCULAR VOLUME 93 fL (80-96); MONOCYTES # (AUTO) 0.9 K/uL (0.1-1.30); MONOCYTES % (AUTO) 6.5 % (2.0-12.0); NEUTROPHILS # (AUTO) 10.3 K/uL (1.8-8.9); NEUTROPHILS % (AUTO) 76.6 % (43.0-81.0); PLATELET COUNT (AUTO) 459 K/uL (150-450); RED BLOOD CELL COUNT(AUTO) 3.35 MIL/uL (4.5-6.0); RED CELL DISTRIBUTION WIDTH 17.6 % (11.5-15.0); WHITE BLOOD COUNT (AUTO) 13.5 K/uL (4.3-11.0)
[2023-04-08] MEDS: BLOOD SUGAR DIAGNOSTIC 1 EACH STRIP IN SCH ×4 (06:55→22:00)
[2023-04-08] MEDS: INSULIN REGULAR, HUMAN 100 UNIT/ML 3 ML VIAL SQ PRN ×4 (06:57→23:10)
[2023-04-08 08:00] VITALS: BP 111/56; TEMP 100; O2SAT 98
[2023-04-08 08:02] LABS: CALCIUM, SERUM 9.2 mg/dL (8.5-10.1); CREATININE 5.2 mg/dL (0.6-1.3); POTASSIUM 3.5 mmol/L (3.5-5.1)
[2023-04-08] MEDS: ALBUTEROL FS 2.5 MG/0.5 ML VIAL.NEB NEB SCH ×3 (08:03→19:51)
[2023-04-08] MEDS: MIDODRINE HCL (5MG) 5 MG TABLET PO SCH ×3 (09:58→16:50)
[2023-04-08] MEDS: POLYETHYLENE GLYCOL 3350 17 GM POWD.PACK GT SCH (09:58)
[2023-04-08] MEDS: VIT B CMPLX 3/FA/VIT C/BIOTIN 1 TAB TABLET GT SCH (09:58)
[2023-04-08] MEDS: LEVOTHYROXINE SODIUM 25 MCG TABLET GT SCH (09:58)
[2023-04-08 12:00] VITALS: BP 110/61; TEMP 98.9; O2SAT 98
[2023-04-08] MEDS: CLOTRIMAZOLE/BETAMETASONE DIPROPIONATE 15 GM TUBE TP SCH ×2 (13:16→16:51)
[2023-04-08] MEDS ORDERED: POLYVINYL ALCOHOL 15 ML BOTTLE EACHEYE PRN (14:00)
[2023-04-08] MEDS: CEFTRIAXONE 1 G in IV D5W 50 ML IV SCH (15:18)
[2023-04-08] MEDS: AZITHROMYCIN 500 MG in IV D5W 250 ML IV SCH (15:38)
[2023-04-08 16:00] VITALS: BP 162/73; TEMP 102.9; O2SAT 98
[2023-04-08] MEDS ORDERED: NEUTRA PHOS 1 POWD.PACKET NG ONE (16:00)
[2023-04-08] MEDS: ACETAMINOPHEN 650 MG/20.3 ML UDC GT PRN (16:49)
[2023-04-08 20:00] VITALS: BP 108/63; TEMP 99.2; O2SAT 98
[2023-04-08] MEDS: ATORVASTATIN 10 MG TABLET GT SCH (22:24)
[2023-04-09] VITALS: BP 128/60; TEMP 98.4; O2SAT 98
[2023-04-09] MEDS: NEPRO 1,000 ML BOTTLE GT PRN (02:10)
[2023-04-09 04:00] VITALS: BP 135/62; TEMP 98.1; O2SAT 100
[2023-04-09] MEDS: ACETAMINOPHEN 650 MG/20.3 ML UDC GT PRN (04:19)
[2023-04-09] MEDS: BLOOD SUGAR DIAGNOSTIC 1 EACH STRIP IN SCH ×4 (07:53→21:46)
[2023-04-09 08:00] VITALS: BP 157/69; TEMP 98.4; O2SAT 100
[2023-04-09] MEDS: ALBUTEROL FS 2.5 MG/0.5 ML VIAL.NEB NEB SCH ×3 (08:02→20:05)
[2023-04-09] MEDS: INSULIN REGULAR, HUMAN 100 UNIT/ML 3 ML VIAL SQ PRN ×4 (08:37→21:54)
[2023-04-09] MEDS: MIDODRINE HCL (5MG) 5 MG TABLET PO SCH ×3 (09:00→17:43)
[2023-04-09] MEDS: POLYETHYLENE GLYCOL 3350 17 GM POWD.PACK GT SCH (09:37)
[2023-04-09] MEDS: LEVOTHYROXINE SODIUM 25 MCG TABLET GT SCH (09:38)
[2023-04-09] MEDS: VIT B CMPLX 3/FA/VIT C/BIOTIN 1 TAB TABLET GT SCH (09:38)
[2023-04-09] MEDS ORDERED: diphenhydrAMINE HCL/ZINC ACET CREAM 28.3 GM TUBE TP PRN (10:00)
[2023-04-09] MEDS: CLOTRIMAZOLE/BETAMETASONE DIPROPIONATE 15 GM TUBE TP SCH ×2 (10:24→17:00)
[2023-04-09] MEDS: diphenhydrAMINE HCL 50 MG/ML VIAL IV PRN (11:16)
[2023-04-09 12:00] VITALS: BP 134/65; TEMP 98.4; O2SAT 100
[2023-04-09] MEDS: INSULIN GLARGINE, 100 UNIT/ML CARTRIDGE SQ SCH ×2 (12:22→17:45)
[2023-04-09 12:40] LABS: BASOPHILS # (AUTO) 0.1 K/uL (0.0-0.2); BASOPHILS % (AUTO) 0.5 % (0.0-2.0); EOSINOPHILS # (AUTO) 0.7 K/uL (0.0-0.7); EOSINOPHILS % (AUTO) 5.7 % (0.0-6.0); HEMATOCRIT 29 % (39-51); HEMOGLOBIN 9.3 g/dL (13.5-17.5); LYMPHOCYTES # (AUTO) 1.5 K/uL (0.8-4.8); LYMPHOCYTES % (AUTO) 11.8 % (20.0-44.0); MEAN CORPUSCULAR HEMOGLOBIN 30 PG (26.0-33.0); MEAN CORPUSCULAR HGB CONC 32 g/dl (31.0-36.0); MEAN CORPUSCULAR VOLUME 93 fL (80-96); MONOCYTES # (AUTO) 0.7 K/uL (0.1-1.30); MONOCYTES % (AUTO) 5.6 % (2.0-12.0); NEUTROPHILS # (AUTO) 9.4 K/uL (1.8-8.9); NEUTROPHILS % (AUTO) 76.4 % (43.0-81.0); PLATELET COUNT (AUTO) 442 K/uL (150-450); RED BLOOD CELL COUNT(AUTO) 3.12 MIL/uL (4.5-6.0); RED CELL DISTRIBUTION WIDTH 17.4 % (11.5-15.0); WHITE BLOOD COUNT (AUTO) 12.3 K/uL (4.3-11.0)
[2023-04-09] MEDS: CEFTRIAXONE 1 G in IV D5W 50 ML IV SCH (13:38)
[2023-04-09] MEDS: AZITHROMYCIN 500 MG in IV D5W 250 ML IV SCH (14:35)
[2023-04-09 16:00] VITALS: BP 126/63; TEMP 98.6; O2SAT 100
[2023-04-09 20:00] VITALS: BP 132/68; TEMP 97.5; O2SAT 100
[2023-04-09] MEDS: ATORVASTATIN 10 MG TABLET GT SCH (21:29)
[2023-04-10] VITALS: BP 136/67; TEMP 98.2; O2SAT 100
[2023-04-10 04:00] VITALS: BP 133/70; TEMP 98.1; O2SAT 100
[2023-04-10] MEDS: ALBUTEROL FS 2.5 MG/0.5 ML VIAL.NEB NEB SCH ×3 (07:46→20:05)
[2023-04-10 07:50] LABS: BASOPHILS # (AUTO) 0.1 K/uL (0.0-0.2); BASOPHILS % (AUTO) 0.4 % (0.0-2.0); EOSINOPHILS # (AUTO) 0.9 K/uL (0.0-0.7); EOSINOPHILS % (AUTO) 6.8 % (0.0-6.0); HEMATOCRIT 32 % (39-51); HEMOGLOBIN 9.7 g/dL (13.5-17.5); LYMPHOCYTES # (AUTO) 1.3 K/uL (0.8-4.8); LYMPHOCYTES % (AUTO) 9.5 % (20.0-44.0); MEAN CORPUSCULAR HEMOGLOBIN 29 PG (26.0-33.0); MEAN CORPUSCULAR HGB CONC 31 g/dl (31.0-36.0); MEAN CORPUSCULAR VOLUME 94 fL (80-96); MONOCYTES # (AUTO) 0.5 K/uL (0.1-1.30); MONOCYTES % (AUTO) 3.9 % (2.0-12.0); NEUTROPHILS # (AUTO) 10.8 K/uL (1.8-8.9); NEUTROPHILS % (AUTO) 79.4 % (43.0-81.0); PLATELET COUNT (AUTO) 519 K/uL (150-450); RED BLOOD CELL COUNT(AUTO) 3.37 MIL/uL (4.5-6.0); RED CELL DISTRIBUTION WIDTH 17.3 % (11.5-15.0); WHITE BLOOD COUNT (AUTO) 13.7 K/uL (4.3-11.0)
[2023-04-10 08:00] VITALS: BP 141/65; TEMP 98.1; O2SAT 100
[2023-04-10 08:08] LABS: CALCIUM, SERUM 9.5 mg/dL (8.5-10.1); MAGNESIUM 2.9 mg/dL (1.8-2.4); PHOSPHORUS 6.3 mg/dL (2.5-4.9); POTASSIUM 4.2 mmol/L (3.5-5.1)
[2023-04-10 08:10] LABS: CREATININE 8.1 mg/dL (0.6-1.3)
[2023-04-10] MEDS: BLOOD SUGAR DIAGNOSTIC 1 EACH STRIP IN SCH ×4 (08:18→22:00)
[2023-04-10] MEDS: POLYETHYLENE GLYCOL 3350 17 GM POWD.PACK GT SCH (09:00)
[2023-04-10] MEDS: CLOTRIMAZOLE/BETAMETASONE DIPROPIONATE 15 GM TUBE TP SCH ×2 (09:00→17:00)
[2023-04-10] MEDS: INSULIN GLARGINE, 100 UNIT/ML CARTRIDGE SQ SCH ×2 (09:00→18:23)
[2023-04-10] MEDS: MIDODRINE HCL (5MG) 5 MG TABLET PO SCH ×3 (09:00→17:00)
[2023-04-10] MEDS: VIT B CMPLX 3/FA/VIT C/BIOTIN 1 TAB TABLET GT SCH (10:00)
[2023-04-10] MEDS: LEVOTHYROXINE SODIUM 25 MCG TABLET GT SCH (10:01)
[2023-04-10] MEDS: INSULIN REGULAR, HUMAN 100 UNIT/ML 3 ML VIAL SQ PRN ×3 (10:31→18:24)
[2023-04-10 12:00] VITALS: BP 144/72; TEMP 98.6; O2SAT 100
[2023-04-10] MEDS: AZITHROMYCIN 500 MG in IV D5W 250 ML IV SCH (15:46)
[2023-04-10] MEDS: CEFTRIAXONE 1 G in IV D5W 50 ML IV SCH (15:46)
[2023-04-10 16:00] VITALS: BP 159/72; TEMP 99.5; O2SAT 100
[2023-04-10 20:00] VITALS: BP 151/66; TEMP 100.6; O2SAT 98
[2023-04-10] MEDS: ATORVASTATIN 10 MG TABLET GT SCH (22:46)
[2023-04-10] MEDS: ACETAMINOPHEN 650 MG/20.3 ML UDC GT PRN (23:43)
[2023-04-11] VITALS: BP 121/77; TEMP 99.3; O2SAT 100
[2023-04-11 04:00] VITALS: BP 135/75; TEMP 99.3; O2SAT 99
[2023-04-11 07:16] LABS: BASOPHILS % (AUTO) 0.2 % (0.0-2.0); EOSINOPHILS # (AUTO) 0.5 K/uL (0.0-0.7); EOSINOPHILS % (AUTO) 3.8 % (0.0-6.0); HEMATOCRIT 30 % (39-51); HEMOGLOBIN 9.2 g/dL (13.5-17.5); LYMPHOCYTES % (AUTO) 8.2 % (20.0-44.0); MEAN CORPUSCULAR HEMOGLOBIN 29 PG (26.0-33.0); MEAN CORPUSCULAR HGB CONC 31 g/dl (31.0-36.0); MEAN CORPUSCULAR VOLUME 94 fL (80-96); MONOCYTES # (AUTO) 0.8 K/uL (0.1-1.30); MONOCYTES % (AUTO) 6.3 % (2.0-12.0); NEUTROPHILS # (AUTO) 10.2 K/uL (1.8-8.9); NEUTROPHILS % (AUTO) 81.5 % (43.0-81.0); PLATELET COUNT (AUTO) 488 K/uL (150-450); RED BLOOD CELL COUNT(AUTO) 3.18 MIL/uL (4.5-6.0); RED CELL DISTRIBUTION WIDTH 17.6 % (11.5-15.0); WHITE BLOOD COUNT (AUTO) 12.5 K/uL (4.3-11.0)
[2023-04-11 07:28] LABS: CREATININE 5.5 mg/dL (0.6-1.3); POTASSIUM 3.8 mmol/L (3.5-5.1)
[2023-04-11] MEDS: ALBUTEROL FS 2.5 MG/0.5 ML VIAL.NEB NEB SCH ×3 (07:43→20:08)
[2023-04-11] MEDS: BLOOD SUGAR DIAGNOSTIC 1 EACH STRIP IN SCH ×4 (07:59→22:58)
[2023-04-11 08:00] VITALS: BP 139/64; TEMP 97.6; O2SAT 99
[2023-04-11] MEDS: VIT B CMPLX 3/FA/VIT C/BIOTIN 1 TAB TABLET GT SCH (08:18)
[2023-04-11] MEDS: POLYETHYLENE GLYCOL 3350 17 GM POWD.PACK GT SCH (08:18)
[2023-04-11] MEDS: LEVOTHYROXINE SODIUM 25 MCG TABLET GT SCH (08:19)
[2023-04-11] MEDS: MIDODRINE HCL (5MG) 5 MG TABLET PO SCH ×3 (08:19→17:00)
[2023-04-11] MEDS: INSULIN REGULAR, HUMAN 100 UNIT/ML 3 ML VIAL SQ PRN ×2 (08:21→12:37)
[2023-04-11] MEDS: INSULIN GLARGINE, 100 UNIT/ML CARTRIDGE SQ SCH ×2 (08:22→18:54)
[2023-04-11] MEDS: CLOTRIMAZOLE/BETAMETASONE DIPROPIONATE 15 GM TUBE TP SCH ×2 (08:23→17:00)
[2023-04-11 12:00] VITALS: BP 145/60; TEMP 97.8; O2SAT 99
[2023-04-11] MEDS: CEFTRIAXONE 1 G in IV D5W 50 ML IV SCH (15:08)
[2023-04-11 16:00] VITALS: BP 145/62; TEMP 97.6; O2SAT 99
[2023-04-11 20:00] VITALS: BP 142/67; TEMP 99.3; O2SAT 99
[2023-04-11] MEDS: ATORVASTATIN 10 MG TABLET GT SCH (22:58)
[2023-04-12] VITALS: BP 138/73; TEMP 98.2; O2SAT 99
[2023-04-12 04:00] VITALS: BP 158/61; TEMP 98.6; O2SAT 99
[2023-04-12 05:44] LABS: BASOPHILS # (AUTO) 0.1 K/uL (0.0-0.2); BASOPHILS % (AUTO) 0.7 % (0.0-2.0); EOSINOPHILS # (AUTO) 0.8 K/uL (0.0-0.7); EOSINOPHILS % (AUTO) 6.5 % (0.0-6.0); HEMATOCRIT 31 % (39-51); HEMOGLOBIN 9.3 g/dL (13.5-17.5); LYMPHOCYTES # (AUTO) 1.5 K/uL (0.8-4.8); LYMPHOCYTES % (AUTO) 12.2 % (20.0-44.0); MEAN CORPUSCULAR HEMOGLOBIN 29 PG (26.0-33.0); MEAN CORPUSCULAR HGB CONC 31 g/dl (31.0-36.0); MEAN CORPUSCULAR VOLUME 95 fL (80-96); MONOCYTES # (AUTO) 0.7 K/uL (0.1-1.30); MONOCYTES % (AUTO) 6.1 % (2.0-12.0); NEUTROPHILS # (AUTO) 8.9 K/uL (1.8-8.9); NEUTROPHILS % (AUTO) 74.5 % (43.0-81.0); PLATELET COUNT (AUTO) 475 K/uL (150-450); RED BLOOD CELL COUNT(AUTO) 3.23 MIL/uL (4.5-6.0); RED CELL DISTRIBUTION WIDTH 17.6 % (11.5-15.0)
[2023-04-12 06:10] LABS: CALCIUM, SERUM 9.6 mg/dL (8.5-10.1); CREATININE 7.1 mg/dL (0.6-1.3); POTASSIUM 3.8 mmol/L (3.5-5.1)
[2023-04-12] MEDS: BLOOD SUGAR DIAGNOSTIC 1 EACH STRIP IN SCH ×5 (07:23→22:23)
[2023-04-12] MEDS: INSULIN REGULAR, HUMAN 100 UNIT/ML 3 ML VIAL SQ PRN ×4 (07:53→22:28)
[2023-04-12 08:00] VITALS: BP 158/79; TEMP 98.4; O2SAT 100
[2023-04-12] MEDS: ALBUTEROL FS 2.5 MG/0.5 ML VIAL.NEB NEB SCH ×3 (08:10→20:01)
[2023-04-12] MEDS: MIDODRINE HCL (5MG) 5 MG TABLET PO SCH ×3 (09:00→17:00)
[2023-04-12] MEDS: POLYETHYLENE GLYCOL 3350 17 GM POWD.PACK GT SCH (09:20)
[2023-04-12] MEDS: VIT B CMPLX 3/FA/VIT C/BIOTIN 1 TAB TABLET GT SCH (09:24)
[2023-04-12] MEDS: LEVOTHYROXINE SODIUM 25 MCG TABLET GT SCH (09:24)
[2023-04-12] MEDS: INSULIN GLARGINE, 100 UNIT/ML CARTRIDGE SQ SCH ×2 (09:27→17:44)
[2023-04-12] MEDS: CLOTRIMAZOLE/BETAMETASONE DIPROPIONATE 15 GM TUBE TP SCH ×2 (10:00→17:45)
[2023-04-12] MEDS ORDERED: HALOPERIDOL DECANOATE IM 100 MG/ML AMPUL IM PRN (11:00)
[2023-04-12] MEDS ORDERED: HALOPERIDOL LACTATE INJ 5 MG/ML VIAL IM PRN (11:30)
[2023-04-12] MEDS: LORAZEPAM INJ 2 MG/ML VIAL IV PRN (11:33)
[2023-04-12] MEDS: NEPRO 1,000 ML BOTTLE GT PRN (11:36)
[2023-04-12 12:00] VITALS: BP 123/61; TEMP 98.1; O2SAT 100
[2023-04-12 16:00] VITALS: BP 138/71; TEMP 97.5; O2SAT 98
[2023-04-12] MEDS: CEFTRIAXONE 1 G in IV D5W 50 ML IV SCH (16:38)
[2023-04-12 20:00] VITALS: BP 140/70; TEMP 99; O2SAT 100
[2023-04-12] MEDS: ATORVASTATIN 10 MG TABLET GT SCH (22:10)
[2023-04-13] VITALS: BP 141/70; TEMP 98.1; O2SAT 100
[2023-04-13 03:06] LABS: HEPATITIS B SURFACE AB Reactive (.)
[2023-04-13] MEDS: diphenhydrAMINE HCL 50 MG/ML VIAL IV PRN (03:50)
[2023-04-13 04:00] VITALS: BP 135/69; TEMP 98.1; O2SAT 100
[2023-04-13 05:48] LABS: BASOPHILS % (AUTO) 0.2 % (0.0-2.0); EOSINOPHILS # (AUTO) 0.6 K/uL (0.0-0.7); HEMATOCRIT 31 % (39-51); HEMOGLOBIN 9.6 g/dL (13.5-17.5); LYMPHOCYTES # (AUTO) 1.3 K/uL (0.8-4.8); LYMPHOCYTES % (AUTO) 11.6 % (20.0-44.0); MEAN CORPUSCULAR HEMOGLOBIN 30 PG (26.0-33.0); MEAN CORPUSCULAR HGB CONC 31 g/dl (31.0-36.0); MEAN CORPUSCULAR VOLUME 95 fL (80-96); MONOCYTES # (AUTO) 0.7 K/uL (0.1-1.30); NEUTROPHILS # (AUTO) 8.7 K/uL (1.8-8.9); NEUTROPHILS % (AUTO) 77.2 % (43.0-81.0); PLATELET COUNT (AUTO) 465 K/uL (150-450); RED BLOOD CELL COUNT(AUTO) 3.26 MIL/uL (4.5-6.0); RED CELL DISTRIBUTION WIDTH 17.1 % (11.5-15.0); WHITE BLOOD COUNT (AUTO) 11.3 K/uL (4.3-11.0)
[2023-04-13 06:03] LABS: CALCIUM, SERUM 9.5 mg/dL (8.5-10.1); CREATININE 5.1 mg/dL (0.6-1.3); POTASSIUM 4.1 mmol/L (3.5-5.1)
[2023-04-13 08:00] VITALS: BP 155/69; TEMP 97.8; O2SAT 100
[2023-04-13] MEDS: ALBUTEROL FS 2.5 MG/0.5 ML VIAL.NEB NEB SCH ×3 (08:19→19:02)
[2023-04-13] MEDS: LEVOTHYROXINE SODIUM 25 MCG TABLET GT SCH (08:37)
[2023-04-13] MEDS: VIT B CMPLX 3/FA/VIT C/BIOTIN 1 TAB TABLET GT SCH (08:37)
[2023-04-13] MEDS: MIDODRINE HCL (5MG) 5 MG TABLET PO SCH ×3 (08:37→16:44)
[2023-04-13] MEDS: POLYETHYLENE GLYCOL 3350 17 GM POWD.PACK GT SCH (08:37)
[2023-04-13] MEDS: INSULIN GLARGINE, 100 UNIT/ML CARTRIDGE SQ SCH ×2 (08:39→16:38)
[2023-04-13] MEDS: INSULIN REGULAR, HUMAN 100 UNIT/ML 3 ML VIAL SQ PRN ×4 (08:41→22:23)
[2023-04-13] MEDS: CLOTRIMAZOLE/BETAMETASONE DIPROPIONATE 15 GM TUBE TP SCH ×2 (08:52→16:17)
[2023-04-13] MEDS: BLOOD SUGAR DIAGNOSTIC 1 EACH STRIP IN SCH ×3 (11:48→22:22)
[2023-04-13 12:00] VITALS: BP 139/64; TEMP 97.7; O2SAT 100
[2023-04-13] MEDS: LORAZEPAM INJ 2 MG/ML VIAL IV PRN (13:58)
[2023-04-13] MEDS: CEFTRIAXONE 1 G in IV D5W 50 ML IV SCH (15:35)
[2023-04-13 16:00] VITALS: BP 107/57; TEMP 97.7; O2SAT 100
[2023-04-13 20:00] VITALS: BP 145/69; TEMP 98.8; O2SAT 100
[2023-04-13] MEDS: ATORVASTATIN 10 MG TABLET GT SCH (22:15)
[2023-04-13] MEDS: NEPRO 1,000 ML BOTTLE GT PRN (23:08)
[2023-04-14] VITALS: BP 137/64; TEMP 99; O2SAT 100
[2023-04-14 04:00] VITALS: BP 145/69; TEMP 98.8; O2SAT 100
[2023-04-14 06:04] LABS: BASOPHILS % (AUTO) 0.2 % (0.0-2.0); EOSINOPHILS # (AUTO) 0.9 K/uL (0.0-0.7); EOSINOPHILS % (AUTO) 7.4 % (0.0-6.0); HEMATOCRIT 30 % (39-51); HEMOGLOBIN 9.3 g/dL (13.5-17.5); LYMPHOCYTES # (AUTO) 1.7 K/uL (0.8-4.8); MEAN CORPUSCULAR HEMOGLOBIN 30 PG (26.0-33.0); MEAN CORPUSCULAR HGB CONC 31 g/dl (31.0-36.0); MEAN CORPUSCULAR VOLUME 95 fL (80-96); MONOCYTES # (AUTO) 0.7 K/uL (0.1-1.30); MONOCYTES % (AUTO) 5.7 % (2.0-12.0); NEUTROPHILS # (AUTO) 8.7 K/uL (1.8-8.9); NEUTROPHILS % (AUTO) 72.7 % (43.0-81.0); PLATELET COUNT (AUTO) 455 K/uL (150-450); RED BLOOD CELL COUNT(AUTO) 3.16 MIL/uL (4.5-6.0); RED CELL DISTRIBUTION WIDTH 17.2 % (11.5-15.0); WHITE BLOOD COUNT (AUTO) 11.9 K/uL (4.3-11.0)
[2023-04-14 06:27] LABS: CALCIUM, SERUM 10.2 mg/dL (8.5-10.1); CREATININE 6.5 mg/dL (0.6-1.3); POTASSIUM 4.3 mmol/L (3.5-5.1)
[2023-04-14] MEDS: BLOOD SUGAR DIAGNOSTIC 1 EACH STRIP IN SCH ×4 (07:49→22:39)
[2023-04-14] MEDS: INSULIN REGULAR, HUMAN 100 UNIT/ML 3 ML VIAL SQ PRN ×4 (07:51→22:41)
[2023-04-14 08:00] VITALS: BP 124/61; TEMP 99.3; O2SAT 100
[2023-04-14] MEDS: ALBUTEROL FS 2.5 MG/0.5 ML VIAL.NEB NEB SCH ×3 (08:19→19:49)
[2023-04-14] MEDS: LEVOTHYROXINE SODIUM 25 MCG TABLET GT SCH (08:56)
[2023-04-14] MEDS: MIDODRINE HCL (5MG) 5 MG TABLET PO SCH ×3 (08:56→17:00)
[2023-04-14] MEDS: VIT B CMPLX 3/FA/VIT C/BIOTIN 1 TAB TABLET GT SCH (08:56)
[2023-04-14] MEDS: POLYETHYLENE GLYCOL 3350 17 GM POWD.PACK GT SCH (08:56)
[2023-04-14] MEDS: INSULIN GLARGINE, 100 UNIT/ML CARTRIDGE SQ SCH ×2 (08:58→17:16)
[2023-04-14] MEDS: CLOTRIMAZOLE/BETAMETASONE DIPROPIONATE 15 GM TUBE TP SCH ×2 (09:17→16:44)
[2023-04-14] MEDS: HYDROCORTISONE 1% CREAM 28.35 GM TUBE TP SCH ×2 (11:07→16:44)
[2023-04-14 12:00] VITALS: BP 140/68; TEMP 98.8; O2SAT 100
[2023-04-14] MEDS: LORAZEPAM INJ 2 MG/ML VIAL IV PRN (14:02)
[2023-04-14] MEDS: CEFTRIAXONE 1 G in IV D5W 50 ML IV SCH (14:08)
[2023-04-14 16:00] VITALS: BP 151/66; TEMP 97.7; O2SAT 100
[2023-04-14] MEDS: diphenhydrAMINE HCL 50 MG/ML VIAL IV PRN (17:40)
[2023-04-14] MEDS: NEPRO 1,000 ML BOTTLE GT PRN (17:58)
[2023-04-14 20:00] VITALS: BP 152/70; TEMP 97.9; O2SAT 100
[2023-04-14] MEDS: ATORVASTATIN 10 MG TABLET GT SCH (21:34)
[2023-04-15] VITALS: BP 151/72; TEMP 98.2; O2SAT 100
[2023-04-15 04:00] VITALS: BP 148/67; TEMP 98.6; O2SAT 100
[2023-04-15 05:50] LABS: BASOPHILS % (AUTO) 0.4 % (0.0-2.0); EOSINOPHILS # (AUTO) 0.7 K/uL (0.0-0.7); EOSINOPHILS % (AUTO) 6.1 % (0.0-6.0); HEMATOCRIT 30 % (39-51); HEMOGLOBIN 9.4 g/dL (13.5-17.5); LYMPHOCYTES # (AUTO) 1.2 K/uL (0.8-4.8); LYMPHOCYTES % (AUTO) 9.9 % (20.0-44.0); MEAN CORPUSCULAR HEMOGLOBIN 30 PG (26.0-33.0); MEAN CORPUSCULAR HGB CONC 32 g/dl (31.0-36.0); MEAN CORPUSCULAR VOLUME 95 fL (80-96); MONOCYTES # (AUTO) 0.5 K/uL (0.1-1.30); NEUTROPHILS # (AUTO) 9.5 K/uL (1.8-8.9); NEUTROPHILS % (AUTO) 79.6 % (43.0-81.0); PLATELET COUNT (AUTO) 471 K/uL (150-450); RED BLOOD CELL COUNT(AUTO) 3.12 MIL/uL (4.5-6.0); RED CELL DISTRIBUTION WIDTH 17.5 % (11.5-15.0); WHITE BLOOD COUNT (AUTO) 11.9 K/uL (4.3-11.0)
[2023-04-15 06:07] LABS: CALCIUM, SERUM 10.3 mg/dL (8.5-10.1); POTASSIUM 4.6 mmol/L (3.5-5.1)
[2023-04-15 06:22] LABS: CREATININE 7.8 mg/dL (0.6-1.3)
[2023-04-15] MEDS: ALBUTEROL FS 2.5 MG/0.5 ML VIAL.NEB NEB SCH ×3 (07:34→19:14)
[2023-04-15 08:00] VITALS: BP 138/33; TEMP 98.6; O2SAT 100
[2023-04-15] MEDS ORDERED: EPOETIN ALFA (10,000 UNIT) 10,000 UNIT/ML VIAL IV ONE (08:00)
[2023-04-15] MEDS ORDERED: MIDO5TAB4 PO (08:23)
[2023-04-15] MEDS: BLOOD SUGAR DIAGNOSTIC 1 EACH STRIP IN SCH ×4 (08:59→21:31)
[2023-04-15] MEDS: LEVOTHYROXINE SODIUM 25 MCG TABLET GT SCH (09:00)
[2023-04-15] MEDS: MIDODRINE HCL (5MG) 5 MG TABLET PO SCH ×3 (09:01→17:53)
[2023-04-15] MEDS: VIT B CMPLX 3/FA/VIT C/BIOTIN 1 TAB TABLET GT SCH (09:01)
[2023-04-15] MEDS: INSULIN GLARGINE, 100 UNIT/ML CARTRIDGE SQ SCH ×2 (09:04→17:00)
[2023-04-15] MEDS: INSULIN REGULAR, HUMAN 100 UNIT/ML 3 ML VIAL SQ PRN ×3 (09:05→21:31)
[2023-04-15] MEDS: POLYETHYLENE GLYCOL 3350 17 GM POWD.PACK GT SCH (09:06)
[2023-04-15] MEDS: CLOTRIMAZOLE/BETAMETASONE DIPROPIONATE 15 GM TUBE TP SCH ×2 (09:35→17:54)
[2023-04-15] MEDS: HYDROCORTISONE 1% CREAM 28.35 GM TUBE TP SCH ×2 (09:35→17:53)
[2023-04-15 12:00] VITALS: BP 130/63; TEMP 99; O2SAT 100
[2023-04-15] MEDS: LORAZEPAM INJ 2 MG/ML VIAL IV PRN (14:35)
[2023-04-15 16:00] VITALS: BP 139/71; TEMP 100; O2SAT 100
[2023-04-15 20:00] VITALS: BP 121/66; TEMP 102.2; O2SAT 100
[2023-04-15] MEDS: ACETAMINOPHEN 650 MG/20.3 ML UDC GT PRN (20:53)
[2023-04-15] MEDS: ATORVASTATIN 10 MG TABLET GT SCH (21:31)
[2023-04-16] VITALS: BP 132/62; TEMP 99; O2SAT 100
[2023-04-16 04:00] VITALS: BP 133/64; TEMP 99.5; O2SAT 100
[2023-04-16 06:09] LABS: CALCIUM, SERUM 10.4 mg/dL (8.5-10.1); CREATININE 6.4 mg/dL (0.6-1.3); POTASSIUM 5.5 mmol/L (3.5-5.1)
[2023-04-16 06:11] LABS: BASOPHILS % (AUTO) 0.2 % (0.0-2.0); EOSINOPHILS # (AUTO) 0.6 K/uL (0.0-0.7); EOSINOPHILS % (AUTO) 3.2 % (0.0-6.0); HEMATOCRIT 31 % (39-51); HEMOGLOBIN 9.7 g/dL (13.5-17.5); LYMPHOCYTES # (AUTO) 1.6 K/uL (0.8-4.8); LYMPHOCYTES % (AUTO) 7.8 % (20.0-44.0); MEAN CORPUSCULAR HEMOGLOBIN 30 PG (26.0-33.0); MEAN CORPUSCULAR HGB CONC 31 g/dl (31.0-36.0); MEAN CORPUSCULAR VOLUME 97 fL (80-96); MONOCYTES % (AUTO) 4.9 % (2.0-12.0); NEUTROPHILS # (AUTO) 16.8 K/uL (1.8-8.9); NEUTROPHILS % (AUTO) 83.9 % (43.0-81.0); PLATELET COUNT (AUTO) 504 K/uL (150-450); RED BLOOD CELL COUNT(AUTO) 3.24 MIL/uL (4.5-6.0); RED CELL DISTRIBUTION WIDTH 18.1 % (11.5-15.0)
[2023-04-16] MEDS: ALBUTEROL FS 2.5 MG/0.5 ML VIAL.NEB NEB SCH ×3 (07:00→20:01)
[2023-04-16] MEDS: BLOOD SUGAR DIAGNOSTIC 1 EACH STRIP IN SCH ×4 (07:17→22:20)
[2023-04-16] MEDS: INSULIN REGULAR, HUMAN 100 UNIT/ML 3 ML VIAL SQ PRN ×4 (07:19→22:20)
[2023-04-16 08:00] VITALS: BP 142/53; TEMP 99.7; O2SAT 100
[2023-04-16] MEDS: POLYETHYLENE GLYCOL 3350 17 GM POWD.PACK GT SCH (09:21)
[2023-04-16] MEDS: LEVOTHYROXINE SODIUM 25 MCG TABLET GT SCH (09:21)
[2023-04-16] MEDS: VIT B CMPLX 3/FA/VIT C/BIOTIN 1 TAB TABLET GT SCH (09:22)
[2023-04-16] MEDS: HYDROCORTISONE 1% CREAM 28.35 GM TUBE TP SCH ×2 (09:23→17:44)
[2023-04-16] MEDS: CLOTRIMAZOLE/BETAMETASONE DIPROPIONATE 15 GM TUBE TP SCH ×2 (09:23→17:44)
[2023-04-16] MEDS: MIDODRINE HCL (5MG) 5 MG TABLET PO SCH ×3 (09:23→17:46)
[2023-04-16] MEDS: INSULIN GLARGINE, 100 UNIT/ML CARTRIDGE SQ SCH ×2 (09:34→17:58)
[2023-04-16] MEDS: PANTOPRAZOLE 40 MG VIAL IV SCH ×2 (10:56→22:09)
[2023-04-16] MEDS ORDERED: VANCOMYCIN 1 GM in IV D5W 250 ML IV ONE (11:00)
[2023-04-16] MEDS ORDERED: PIPERACILLIN /TAZOBACTAM 3.375 G in IV D5W 100 ML IV SCH (11:00)
[2023-04-16 12:00] VITALS: BP 135/83; TEMP 99; O2SAT 98
[2023-04-16] MEDS ORDERED: PIPERACILLIN /TAZOBACTAM 3.375 G in IV D5W 50 ML IV SCH (12:00)
[2023-04-16] MEDS: ZOSYN IVPB 2.25 G in IV D5W 50ml IV SCH ×2 (13:11→17:40)
[2023-04-16] MEDS: NEPRO 1,000 ML BOTTLE GT PRN (14:40)
[2023-04-16 16:00] VITALS: BP 116/67; TEMP 99.8; O2SAT 98
[2023-04-16] MEDS: ACETAMINOPHEN 650 MG/20.3 ML UDC GT PRN (17:45)
[2023-04-16 20:00] VITALS: BP 125/54; TEMP 97.7; O2SAT 99
[2023-04-16] MEDS: ATORVASTATIN 10 MG TABLET GT SCH (22:09)
[2023-04-17] VITALS: BP 154/62; TEMP 97.7; O2SAT 99
[2023-04-17] MEDS: ZOSYN IVPB 2.25 G in IV D5W 50ml IV SCH ×4 (00:29→17:02)
[2023-04-17 04:00] VITALS: BP 144/69; TEMP 99.9; O2SAT 99
[2023-04-17] MEDS ORDERED: VANCOMYCIN 500 MG in IV D5W 100 ML IV PRN (06:00)
[2023-04-17] MEDS: BLOOD SUGAR DIAGNOSTIC 1 EACH STRIP IN SCH ×4 (07:33→21:27)
[2023-04-17 07:36] LABS: BASOPHILS # (AUTO) 0.1 K/uL (0.0-0.2); BASOPHILS % (AUTO) 0.2 % (0.0-2.0); EOSINOPHILS # (AUTO) 0.7 K/uL (0.0-0.7); EOSINOPHILS % (AUTO) 2.9 % (0.0-6.0); HEMATOCRIT 28 % (39-51); HEMOGLOBIN 8.5 g/dL (13.5-17.5); LYMPHOCYTES # (AUTO) 1.4 K/uL (0.8-4.8); LYMPHOCYTES % (AUTO) 5.7 % (20.0-44.0); MEAN CORPUSCULAR HEMOGLOBIN 29 PG (26.0-33.0); MEAN CORPUSCULAR HGB CONC 30 g/dl (31.0-36.0); MEAN CORPUSCULAR VOLUME 96 fL (80-96); MONOCYTES # (AUTO) 0.9 K/uL (0.1-1.30); MONOCYTES % (AUTO) 3.7 % (2.0-12.0); NEUTROPHILS # (AUTO) 21.1 K/uL (1.8-8.9); NEUTROPHILS % (AUTO) 87.5 % (43.0-81.0); PLATELET COUNT (AUTO) 442 K/uL (150-450); RED CELL DISTRIBUTION WIDTH 17.7 % (11.5-15.0); WHITE BLOOD COUNT (AUTO) 24.1 K/uL (4.3-11.0)
[2023-04-17] MEDS: INSULIN REGULAR, HUMAN 100 UNIT/ML 3 ML VIAL SQ PRN ×4 (07:38→21:38)
[2023-04-17 08:00] VITALS: BP 122/20; TEMP 98.6; O2SAT 98
[2023-04-17 08:03] LABS: CALCIUM, SERUM 9.5 mg/dL (8.5-10.1); POTASSIUM 5.8 mmol/L (3.5-5.1)
[2023-04-17] MEDS: POLYETHYLENE GLYCOL 3350 17 GM POWD.PACK GT SCH (08:07)
[2023-04-17] MEDS: PANTOPRAZOLE 40 MG VIAL IV SCH ×2 (08:07→21:08)
[2023-04-17] MEDS: VIT B CMPLX 3/FA/VIT C/BIOTIN 1 TAB TABLET GT SCH (08:07)
[2023-04-17] MEDS: MIDODRINE HCL (5MG) 5 MG TABLET PO SCH ×3 (08:08→16:32)
[2023-04-17] MEDS: LEVOTHYROXINE SODIUM 25 MCG TABLET GT SCH (08:08)
[2023-04-17] MEDS: ALBUTEROL FS 2.5 MG/0.5 ML VIAL.NEB NEB SCH ×3 (08:09→20:12)
[2023-04-17] MEDS: INSULIN GLARGINE, 100 UNIT/ML CARTRIDGE SQ SCH ×2 (08:09→16:34)
[2023-04-17] MEDS: HYDROCORTISONE 1% CREAM 28.35 GM TUBE TP SCH ×2 (08:11→16:34)
[2023-04-17] MEDS: CLOTRIMAZOLE/BETAMETASONE DIPROPIONATE 15 GM TUBE TP SCH ×2 (08:11→16:34)
[2023-04-17 08:24] LABS: CREATININE 8.2 mg/dL (0.6-1.3)
[2023-04-17] MEDS: NEPRO 1,000 ML BOTTLE GT PRN (08:24)
[2023-04-17] MEDS ORDERED: EPOETIN ALFA (10,000 UNIT) 10,000 UNIT/ML VIAL IV ONE (09:00)
[2023-04-17 12:00] VITALS: BP 124/57; TEMP 97.9; O2SAT 98
[2023-04-17] MEDS ORDERED: VITAMINS A AND D 56.7 GM TUBE TP PRN (12:00)
[2023-04-17 16:00] VITALS: BP 130/35; TEMP 100.8; O2SAT 100
[2023-04-17 20:00] VITALS: BP 100/69; TEMP 99.5; O2SAT 100
[2023-04-17] MEDS: ATORVASTATIN 10 MG TABLET GT SCH (21:08)
[2023-04-18] VITALS: BP 128/71; TEMP 99.3; O2SAT 100
[2023-04-18] MEDS: ZOSYN IVPB 2.25 G in IV D5W 50ml IV SCH ×4 (00:19→17:00)
[2023-04-18 04:00] VITALS: BP 132/118; TEMP 99.5; O2SAT 100
[2023-04-18] MEDS: NEPRO 1,000 ML BOTTLE GT PRN (04:54)
[2023-04-18 07:18] LABS: BASOPHILS # (AUTO) 0.1 K/uL (0.0-0.2); BASOPHILS % (AUTO) 0.3 % (0.0-2.0); EOSINOPHILS % (AUTO) 5.2 % (0.0-6.0); HEMATOCRIT 30 % (39-51); HEMOGLOBIN 8.9 g/dL (13.5-17.5); LYMPHOCYTES # (AUTO) 1.7 K/uL (0.8-4.8); LYMPHOCYTES % (AUTO) 9.1 % (20.0-44.0); MEAN CORPUSCULAR HEMOGLOBIN 29 PG (26.0-33.0); MEAN CORPUSCULAR HGB CONC 30 g/dl (31.0-36.0); MEAN CORPUSCULAR VOLUME 98 fL (80-96); MONOCYTES # (AUTO) 0.7 K/uL (0.1-1.30); MONOCYTES % (AUTO) 3.9 % (2.0-12.0); NEUTROPHILS # (AUTO) 15.6 K/uL (1.8-8.9); NEUTROPHILS % (AUTO) 81.5 % (43.0-81.0); PLATELET COUNT (AUTO) 438 K/uL (150-450); RED BLOOD CELL COUNT(AUTO) 3.05 MIL/uL (4.5-6.0); RED CELL DISTRIBUTION WIDTH 17.9 % (11.5-15.0); WHITE BLOOD COUNT (AUTO) 19.2 K/uL (4.3-11.0)
[2023-04-18 07:33] LABS: CREATININE 6.6 mg/dL (0.6-1.3); POTASSIUM 5.4 mmol/L (3.5-5.1)
[2023-04-18] MEDS: BLOOD SUGAR DIAGNOSTIC 1 EACH STRIP IN SCH ×4 (07:46→22:40)
[2023-04-18 08:00] VITALS: BP 133/62; TEMP 99.1; O2SAT 100
[2023-04-18] MEDS: ALBUTEROL FS 2.5 MG/0.5 ML VIAL.NEB NEB SCH ×3 (08:08→19:40)
[2023-04-18] MEDS: INSULIN REGULAR, HUMAN 100 UNIT/ML 3 ML VIAL SQ PRN ×4 (08:32→22:43)
[2023-04-18] MEDS: LEVOTHYROXINE SODIUM 25 MCG TABLET GT SCH (08:49)
[2023-04-18] MEDS: POLYETHYLENE GLYCOL 3350 17 GM POWD.PACK GT SCH (08:49)
[2023-04-18] MEDS: VIT B CMPLX 3/FA/VIT C/BIOTIN 1 TAB TABLET GT SCH (08:50)
[2023-04-18] MEDS: PANTOPRAZOLE 40 MG/PACK PACK GT SCH ×2 (08:50→21:39)
[2023-04-18] MEDS: MIDODRINE HCL (5MG) 5 MG TABLET PO SCH ×3 (08:50→16:50)
[2023-04-18] MEDS: INSULIN GLARGINE, 100 UNIT/ML CARTRIDGE SQ SCH ×2 (08:52→16:50)
[2023-04-18] MEDS: HYDROCORTISONE 1% CREAM 28.35 GM TUBE TP SCH ×2 (08:52→16:51)
[2023-04-18] MEDS: CLOTRIMAZOLE/BETAMETASONE DIPROPIONATE 15 GM TUBE TP SCH ×2 (08:53→16:51)
[2023-04-18 12:00] VITALS: BP 140/61; TEMP 98.6; O2SAT 100
[2023-04-18 16:00] VITALS: BP 143/69; TEMP 98.8; O2SAT 100
[2023-04-18 20:00] VITALS: BP 135/59; TEMP 98.5; O2SAT 100
[2023-04-18] MEDS: ATORVASTATIN 10 MG TABLET GT SCH (21:39)
[2023-04-19] VITALS: BP 124/64; TEMP 98.8; O2SAT 100
[2023-04-19] MEDS: ZOSYN IVPB 2.25 G in IV D5W 50ml IV SCH ×5 (00:12→23:54)
[2023-04-19 04:00] VITALS: BP 130/60; TEMP 98.5; O2SAT 100
[2023-04-19] MEDS: NEPRO 1,000 ML BOTTLE GT PRN (04:52)
[2023-04-19 05:43] LABS: BASOPHILS # (AUTO) 0.1 K/uL (0.0-0.2); BASOPHILS % (AUTO) 0.5 % (0.0-2.0); EOSINOPHILS % (AUTO) 6.6 % (0.0-6.0); HEMATOCRIT 30 % (39-51); HEMOGLOBIN 9.4 g/dL (13.5-17.5); LYMPHOCYTES # (AUTO) 1.7 K/uL (0.8-4.8); LYMPHOCYTES % (AUTO) 11.8 % (20.0-44.0); MEAN CORPUSCULAR HEMOGLOBIN 30 PG (26.0-33.0); MEAN CORPUSCULAR HGB CONC 31 g/dl (31.0-36.0); MEAN CORPUSCULAR VOLUME 95 fL (80-96); MONOCYTES # (AUTO) 0.9 K/uL (0.1-1.30); MONOCYTES % (AUTO) 6.2 % (2.0-12.0); NEUTROPHILS # (AUTO) 10.9 K/uL (1.8-8.9); NEUTROPHILS % (AUTO) 74.9 % (43.0-81.0); PLATELET COUNT (AUTO) 452 K/uL (150-450); RED BLOOD CELL COUNT(AUTO) 3.19 MIL/uL (4.5-6.0); RED CELL DISTRIBUTION WIDTH 17.4 % (11.5-15.0); WHITE BLOOD COUNT (AUTO) 14.6 K/uL (4.3-11.0)
[2023-04-19 05:59] LABS: CALCIUM, SERUM 10.4 mg/dL (8.5-10.1); CREATININE 4.8 mg/dL (0.6-1.3); POTASSIUM 4.8 mmol/L (3.5-5.1)
[2023-04-19] MEDS: BLOOD SUGAR DIAGNOSTIC 1 EACH STRIP IN SCH ×4 (07:30→22:05)
[2023-04-19] MEDS: ALBUTEROL FS 2.5 MG/0.5 ML VIAL.NEB NEB SCH ×3 (07:54→19:33)
[2023-04-19 08:00] VITALS: BP 106/62; TEMP 100; O2SAT 100
[2023-04-19] MEDS: INSULIN GLARGINE, 100 UNIT/ML CARTRIDGE SQ SCH ×2 (08:53→18:04)
[2023-04-19] MEDS: INSULIN REGULAR, HUMAN 100 UNIT/ML 3 ML VIAL SQ PRN ×4 (08:53→22:08)
[2023-04-19] MEDS: VIT B CMPLX 3/FA/VIT C/BIOTIN 1 TAB TABLET GT SCH (08:54)
[2023-04-19] MEDS: PANTOPRAZOLE 40 MG/PACK PACK GT SCH ×2 (08:54→21:49)
[2023-04-19] MEDS: MIDODRINE HCL (5MG) 5 MG TABLET PO SCH ×3 (08:55→17:54)
[2023-04-19] MEDS: LEVOTHYROXINE SODIUM 25 MCG TABLET GT SCH (08:55)
[2023-04-19] MEDS: POLYETHYLENE GLYCOL 3350 17 GM POWD.PACK GT SCH (08:55)
[2023-04-19] MEDS: CLOTRIMAZOLE/BETAMETASONE DIPROPIONATE 15 GM TUBE TP SCH ×2 (08:56→17:54)
[2023-04-19] MEDS: HYDROCORTISONE 1% CREAM 28.35 GM TUBE TP SCH ×2 (08:56→17:54)
[2023-04-19 12:00] VITALS: BP 119/58; TEMP 98.2; O2SAT 100
[2023-04-19 16:00] VITALS: BP 111/58; TEMP 99.3; O2SAT 99
[2023-04-19 20:00] VITALS: BP 125/59; TEMP 97.9; O2SAT 100
[2023-04-19] MEDS: ATORVASTATIN 10 MG TABLET GT SCH (21:49)
[2023-04-20] VITALS: BP 131/59; TEMP 97.9; O2SAT 99
[2023-04-20 04:00] VITALS: BP 151/67; TEMP 98; O2SAT 100
[2023-04-20] MEDS: ZOSYN IVPB 2.25 G in IV D5W 50ml IV SCH ×4 (05:13→23:13)
[2023-04-20 05:52] LABS: BASOPHILS # (AUTO) 0.1 K/uL (0.0-0.2); BASOPHILS % (AUTO) 0.5 % (0.0-2.0); EOSINOPHILS # (AUTO) 1.3 K/uL (0.0-0.7); EOSINOPHILS % (AUTO) 9.2 % (0.0-6.0); HEMATOCRIT 32 % (39-51); HEMOGLOBIN 9.6 g/dL (13.5-17.5); LYMPHOCYTES # (AUTO) 2.1 K/uL (0.8-4.8); LYMPHOCYTES % (AUTO) 14.6 % (20.0-44.0); MEAN CORPUSCULAR HEMOGLOBIN 30 PG (26.0-33.0); MEAN CORPUSCULAR HGB CONC 31 g/dl (31.0-36.0); MEAN CORPUSCULAR VOLUME 98 fL (80-96); MONOCYTES # (AUTO) 0.8 K/uL (0.1-1.30); MONOCYTES % (AUTO) 5.7 % (2.0-12.0); NEUTROPHILS # (AUTO) 9.9 K/uL (1.8-8.9); PLATELET COUNT (AUTO) 390 K/uL (150-450); WHITE BLOOD COUNT (AUTO) 14.2 K/uL (4.3-11.0)
[2023-04-20 06:04] LABS: CALCIUM, SERUM 9.8 mg/dL (8.5-10.1); CREATININE 6.8 mg/dL (0.6-1.3)
[2023-04-20 06:12] LABS: POTASSIUM 6.6 mmol/L (3.5-5.1)
[2023-04-20] MEDS: BLOOD SUGAR DIAGNOSTIC 1 EACH STRIP IN SCH ×4 (07:20→22:28)
[2023-04-20] MEDS: INSULIN REGULAR, HUMAN 100 UNIT/ML 3 ML VIAL SQ PRN ×3 (07:23→22:31)
[2023-04-20] MEDS: ALBUTEROL FS 2.5 MG/0.5 ML VIAL.NEB NEB SCH ×3 (07:26→19:51)
[2023-04-20] MEDS: NEPRO 1,000 ML BOTTLE GT PRN (07:53)
[2023-04-20 08:00] VITALS: BP 97/54; TEMP 97.3; O2SAT 100
[2023-04-20] MEDS: VIT B CMPLX 3/FA/VIT C/BIOTIN 1 TAB TABLET GT SCH (08:20)
[2023-04-20] MEDS: POLYETHYLENE GLYCOL 3350 17 GM POWD.PACK GT SCH (08:20)
[2023-04-20] MEDS: PANTOPRAZOLE 40 MG/PACK PACK GT SCH ×2 (08:21→20:30)
[2023-04-20] MEDS: LEVOTHYROXINE SODIUM 25 MCG TABLET GT SCH (08:21)
[2023-04-20] MEDS: MIDODRINE HCL (5MG) 5 MG TABLET PO SCH ×3 (08:21→16:30)
[2023-04-20] MEDS: INSULIN GLARGINE, 100 UNIT/ML CARTRIDGE SQ SCH ×2 (08:23→16:31)
[2023-04-20] MEDS: CLOTRIMAZOLE/BETAMETASONE DIPROPIONATE 15 GM TUBE TP SCH ×2 (08:23→16:32)
[2023-04-20] MEDS: HYDROCORTISONE 1% CREAM 28.35 GM TUBE TP SCH ×2 (08:24→16:32)
[2023-04-20] MEDS ORDERED: SODIUM BICARBONATE SYR 50 MEQ/50 ML DISP.SYRIN IV ONE (09:00)
[2023-04-20] MEDS: LORAZEPAM INJ 2 MG/ML VIAL IV PRN ×2 (09:21→17:17)
[2023-04-20 12:00] VITALS: BP 97/54; TEMP 97.4; O2SAT 100
[2023-04-20 16:00] VITALS: BP 105/54; TEMP 98.1; O2SAT 100
[2023-04-20 20:00] VITALS: BP 120/85; TEMP 98.5; O2SAT 100
[2023-04-20] MEDS: ATORVASTATIN 10 MG TABLET GT SCH (22:28)
[2023-04-20] MEDS: diphenhydrAMINE HCL 25 MG CAPSULE PO PRN (22:45)
[2023-04-21] VITALS: BP 125/80; TEMP 98; O2SAT 100
[2023-04-21 04:00] VITALS: BP 132/85; TEMP 98; O2SAT 100
[2023-04-21] MEDS: ZOSYN IVPB 2.25 G in IV D5W 50ml IV SCH ×4 (05:02→23:56)
[2023-04-21] MEDS: BLOOD SUGAR DIAGNOSTIC 1 EACH STRIP IN SCH ×4 (07:32→22:06)
[2023-04-21 07:47] LABS: BASOPHILS # (AUTO) 0.1 K/uL (0.0-0.2); BASOPHILS % (AUTO) 0.6 % (0.0-2.0); EOSINOPHILS # (AUTO) 1.1 K/uL (0.0-0.7); EOSINOPHILS % (AUTO) 8.9 % (0.0-6.0); HEMATOCRIT 29 % (39-51); HEMOGLOBIN 9.2 g/dL (13.5-17.5); LYMPHOCYTES # (AUTO) 1.7 K/uL (0.8-4.8); LYMPHOCYTES % (AUTO) 13.6 % (20.0-44.0); MEAN CORPUSCULAR HEMOGLOBIN 30 PG (26.0-33.0); MEAN CORPUSCULAR HGB CONC 32 g/dl (31.0-36.0); MEAN CORPUSCULAR VOLUME 95 fL (80-96); MONOCYTES # (AUTO) 0.8 K/uL (0.1-1.30); MONOCYTES % (AUTO) 6.6 % (2.0-12.0); NEUTROPHILS # (AUTO) 8.7 K/uL (1.8-8.9); NEUTROPHILS % (AUTO) 70.3 % (43.0-81.0); PLATELET COUNT (AUTO) 374 K/uL (150-450); RED BLOOD CELL COUNT(AUTO) 3.06 MIL/uL (4.5-6.0); RED CELL DISTRIBUTION WIDTH 17.6 % (11.5-15.0); WHITE BLOOD COUNT (AUTO) 12.4 K/uL (4.3-11.0)
[2023-04-21] MEDS: ALBUTEROL FS 2.5 MG/0.5 ML VIAL.NEB NEB SCH ×3 (07:47→20:09)
[2023-04-21 08:00] VITALS: BP_SYST 131; BP_SYST 135; BP_DIAS 85; BP_DIAS 86; TEMP 98; TEMP 98.5; O2SAT 100
[2023-04-21 08:16] LABS: CALCIUM, SERUM 9.8 mg/dL (8.5-10.1); CREATININE 6.3 mg/dL (0.6-1.3); POTASSIUM 4.4 mmol/L (3.5-5.1)
[2023-04-21] MEDS: POLYETHYLENE GLYCOL 3350 17 GM POWD.PACK GT SCH (08:44)
[2023-04-21] MEDS: INSULIN REGULAR, HUMAN 100 UNIT/ML 3 ML VIAL SQ PRN ×3 (08:44→22:01)
[2023-04-21] MEDS: LEVOTHYROXINE SODIUM 25 MCG TABLET GT SCH (08:45)
[2023-04-21] MEDS: MIDODRINE HCL (5MG) 5 MG TABLET PO SCH ×3 (08:45→16:11)
[2023-04-21] MEDS: VIT B CMPLX 3/FA/VIT C/BIOTIN 1 TAB TABLET GT SCH (08:45)
[2023-04-21] MEDS: PANTOPRAZOLE 40 MG/PACK PACK GT SCH ×2 (08:45→20:39)
[2023-04-21] MEDS: INSULIN GLARGINE, 100 UNIT/ML CARTRIDGE SQ SCH ×2 (08:47→16:18)
[2023-04-21] MEDS: HYDROCORTISONE 1% CREAM 28.35 GM TUBE TP SCH ×2 (08:47→16:11)
[2023-04-21] MEDS: CLOTRIMAZOLE/BETAMETASONE DIPROPIONATE 15 GM TUBE TP SCH ×2 (08:48→16:12)
[2023-04-21] MEDS: NEPRO 1,000 ML BOTTLE GT PRN (09:41)
[2023-04-21 12:00] VITALS: BP 109/54; TEMP 98.5; TEMP 98.6; O2SAT 100; O2SAT 99
[2023-04-21] MEDS: ACETAMINOPHEN 650 MG/20.3 ML UDC GT PRN (13:00)
[2023-04-21] MEDS: LORAZEPAM INJ 2 MG/ML VIAL IV PRN (13:00)
[2023-04-21] MEDS: diphenhydrAMINE HCL 25 MG CAPSULE PO PRN (13:00)
[2023-04-21 16:00] VITALS: BP_SYST 103; BP_SYST 105; BP_DIAS 51; BP_DIAS 57; TEMP 97.6; TEMP 98.2; O2SAT 100
[2023-04-21 20:00] VITALS: BP 159/73; TEMP 98.1; O2SAT 100
[2023-04-21] MEDS: ATORVASTATIN 10 MG TABLET GT SCH (21:22)
[2023-04-22] VITALS: BP 156/70; TEMP 98; O2SAT 100
[2023-04-22 04:00] VITALS: BP 149/65; TEMP 98.1; O2SAT 100
[2023-04-22] MEDS: ZOSYN IVPB 2.25 G in IV D5W 50ml IV SCH ×3 (05:04→21:18)
[2023-04-22 07:05] LABS: BASOPHILS # (AUTO) 0.1 K/uL (0.0-0.2); BASOPHILS % (AUTO) 0.5 % (0.0-2.0); EOSINOPHILS # (AUTO) 1.4 K/uL (0.0-0.7); EOSINOPHILS % (AUTO) 9.3 % (0.0-6.0); HEMATOCRIT 30 % (39-51); HEMOGLOBIN 9.2 g/dL (13.5-17.5); LYMPHOCYTES # (AUTO) 1.6 K/uL (0.8-4.8); LYMPHOCYTES % (AUTO) 10.7 % (20.0-44.0); MEAN CORPUSCULAR HEMOGLOBIN 30 PG (26.0-33.0); MEAN CORPUSCULAR HGB CONC 31 g/dl (31.0-36.0); MEAN CORPUSCULAR VOLUME 99 fL (80-96); MONOCYTES # (AUTO) 0.7 K/uL (0.1-1.30); MONOCYTES % (AUTO) 4.9 % (2.0-12.0); NEUTROPHILS # (AUTO) 11.2 K/uL (1.8-8.9); NEUTROPHILS % (AUTO) 74.6 % (43.0-81.0); PLATELET COUNT (AUTO) 380 K/uL (150-450); RED BLOOD CELL COUNT(AUTO) 3.03 MIL/uL (4.5-6.0); RED CELL DISTRIBUTION WIDTH 17.4 % (11.5-15.0)
[2023-04-22 07:34] LABS: CALCIUM, SERUM 9.8 mg/dL (8.5-10.1); POTASSIUM 4.2 mmol/L (3.5-5.1)
[2023-04-22] MEDS: INSULIN REGULAR, HUMAN 100 UNIT/ML 3 ML VIAL SQ PRN ×4 (07:49→21:19)
[2023-04-22] MEDS: BLOOD SUGAR DIAGNOSTIC 1 EACH STRIP IN SCH ×4 (07:50→21:18)
[2023-04-22 07:54] LABS: CREATININE 7.7 mg/dL (0.6-1.3)
[2023-04-22 08:00] VITALS: BP 131/63; TEMP 98.6; O2SAT 100
[2023-04-22] MEDS: ALBUTEROL FS 2.5 MG/0.5 ML VIAL.NEB NEB SCH ×3 (08:00→20:40)
[2023-04-22] MEDS: CLOTRIMAZOLE/BETAMETASONE DIPROPIONATE 15 GM TUBE TP SCH ×2 (09:00→16:49)
[2023-04-22] MEDS: HYDROCORTISONE 1% CREAM 28.35 GM TUBE TP SCH ×2 (09:00→16:49)
[2023-04-22] MEDS: MIDODRINE HCL (5MG) 5 MG TABLET PO SCH ×3 (09:00→16:37)
[2023-04-22] MEDS: POLYETHYLENE GLYCOL 3350 17 GM POWD.PACK GT SCH (09:02)
[2023-04-22] MEDS: VIT B CMPLX 3/FA/VIT C/BIOTIN 1 TAB TABLET GT SCH (09:09)
[2023-04-22] MEDS: LEVOTHYROXINE SODIUM 25 MCG TABLET GT SCH (09:10)
[2023-04-22] MEDS: PANTOPRAZOLE 40 MG/PACK PACK GT SCH ×2 (09:10→21:18)
[2023-04-22] MEDS: INSULIN GLARGINE, 100 UNIT/ML CARTRIDGE SQ SCH ×2 (09:20→16:42)
[2023-04-22] MEDS ORDERED: METR500T PO (09:47)
[2023-04-22] MEDS ORDERED: LEVO500P10 IV (09:47)
[2023-04-22] MEDS: NEPRO 1,000 ML BOTTLE GT PRN (11:52)
[2023-04-22 12:00] VITALS: BP 133/62; TEMP 98.2; O2SAT 100
[2023-04-22] MEDS: LORAZEPAM INJ 2 MG/ML VIAL IV PRN (15:11)
[2023-04-22 16:00] VITALS: BP 127/63; TEMP 98.6; O2SAT 100
[2023-04-22] MEDS: diphenhydrAMINE HCL 25 MG CAPSULE PO PRN (16:50)
[2023-04-22 20:51] VITALS: BP 155/62; TEMP 98.9; O2SAT 100
[2023-04-22] MEDS: ATORVASTATIN 10 MG TABLET GT SCH (21:18)
[2023-04-23] VITALS (7 sets, daily range): BP systolic 135–166; BP diastolic 61–76; TEMP 98.6–99.1; O2SAT 100
[2023-04-23] MEDS: ZOSYN IVPB 2.25 G in IV D5W 50ml IV SCH ×3 (04:18→20:59)
[2023-04-23 06:12] LABS: BASOPHILS # (AUTO) 0.1 K/uL (0.0-0.2); BASOPHILS % (AUTO) 0.5 % (0.0-2.0); EOSINOPHILS # (AUTO) 1.5 K/uL (0.0-0.7); EOSINOPHILS % (AUTO) 10.4 % (0.0-6.0); HEMATOCRIT 27 % (39-51); HEMOGLOBIN 8.8 g/dL (13.5-17.5); LYMPHOCYTES # (AUTO) 1.5 K/uL (0.8-4.8); LYMPHOCYTES % (AUTO) 10.4 % (20.0-44.0); MEAN CORPUSCULAR HEMOGLOBIN 30 PG (26.0-33.0); MEAN CORPUSCULAR HGB CONC 32 g/dl (31.0-36.0); MEAN CORPUSCULAR VOLUME 95 fL (80-96); MONOCYTES # (AUTO) 0.8 K/uL (0.1-1.30); MONOCYTES % (AUTO) 5.6 % (2.0-12.0); NEUTROPHILS # (AUTO) 10.6 K/uL (1.8-8.9); NEUTROPHILS % (AUTO) 73.1 % (43.0-81.0); PLATELET COUNT (AUTO) 339 K/uL (150-450); RED BLOOD CELL COUNT(AUTO) 2.89 MIL/uL (4.5-6.0); RED CELL DISTRIBUTION WIDTH 17.8 % (11.5-15.0); WHITE BLOOD COUNT (AUTO) 14.5 K/uL (4.3-11.0)
[2023-04-23 06:21] LABS: CALCIUM, SERUM 9.7 mg/dL (8.5-10.1); POTASSIUM 4.4 mmol/L (3.5-5.1)
[2023-04-23 06:30] LABS: CREATININE 9.4 mg/dL (0.6-1.3)
[2023-04-23] MEDS: BLOOD SUGAR DIAGNOSTIC 1 EACH STRIP IN SCH ×4 (07:30→22:20)
[2023-04-23] MEDS: ALBUTEROL FS 2.5 MG/0.5 ML VIAL.NEB NEB SCH ×3 (08:04→20:25)
[2023-04-23] MEDS: VIT B CMPLX 3/FA/VIT C/BIOTIN 1 TAB TABLET GT SCH (08:41)
[2023-04-23] MEDS: PANTOPRAZOLE 40 MG/PACK PACK GT SCH ×2 (08:41→20:59)
[2023-04-23] MEDS: LEVOTHYROXINE SODIUM 25 MCG TABLET GT SCH (08:41)
[2023-04-23] MEDS: POLYETHYLENE GLYCOL 3350 17 GM POWD.PACK GT SCH (08:41)
[2023-04-23] MEDS: MIDODRINE HCL (5MG) 5 MG TABLET PO SCH ×3 (08:42→17:33)
[2023-04-23] MEDS: HYDROCORTISONE 1% CREAM 28.35 GM TUBE TP SCH ×2 (08:44→17:34)
[2023-04-23] MEDS: INSULIN GLARGINE, 100 UNIT/ML CARTRIDGE SQ SCH ×2 (08:44→17:34)
[2023-04-23] MEDS: CLOTRIMAZOLE/BETAMETASONE DIPROPIONATE 15 GM TUBE TP SCH ×2 (08:45→17:34)
[2023-04-23] MEDS: INSULIN REGULAR, HUMAN 100 UNIT/ML 3 ML VIAL SQ PRN ×2 (09:46→22:22)
[2023-04-23] MEDS: NEPRO 1,000 ML BOTTLE GT PRN (12:32)
[2023-04-23] MEDS: ATORVASTATIN 10 MG TABLET GT SCH (21:00)
[2023-04-23] MEDS: QUETIAPINE FUMARATE 25 MG TABLET PO PRN (21:00)
[2023-04-24] VITALS: BP 144/61; TEMP 99; O2SAT 100
[2023-04-24 04:00] VITALS: BP 105/56; TEMP 98.4; O2SAT 100
[2023-04-24] MEDS: ZOSYN IVPB 2.25 G in IV D5W 50ml IV SCH ×3 (04:25→21:22)
[2023-04-24] MEDS: NEPRO 1,000 ML BOTTLE GT PRN (04:56)
[2023-04-24 07:05] LABS: BASOPHILS # (AUTO) 0.1 K/uL (0.0-0.2); BASOPHILS % (AUTO) 0.6 % (0.0-2.0); EOSINOPHILS # (AUTO) 1.3 K/uL (0.0-0.7); EOSINOPHILS % (AUTO) 11.5 % (0.0-6.0); HEMATOCRIT 27 % (39-51); HEMOGLOBIN 8.3 g/dL (13.5-17.5); LYMPHOCYTES # (AUTO) 1.4 K/uL (0.8-4.8); LYMPHOCYTES % (AUTO) 12.7 % (20.0-44.0); MEAN CORPUSCULAR HEMOGLOBIN 30 PG (26.0-33.0); MEAN CORPUSCULAR HGB CONC 31 g/dl (31.0-36.0); MEAN CORPUSCULAR VOLUME 96 fL (80-96); MONOCYTES # (AUTO) 0.6 K/uL (0.1-1.30); MONOCYTES % (AUTO) 5.7 % (2.0-12.0); NEUTROPHILS # (AUTO) 7.8 K/uL (1.8-8.9); NEUTROPHILS % (AUTO) 69.5 % (43.0-81.0); PLATELET COUNT (AUTO) 358 K/uL (150-450); RED CELL DISTRIBUTION WIDTH 18.3 % (11.5-15.0); WHITE BLOOD COUNT (AUTO) 11.3 K/uL (4.3-11.0)
[2023-04-24 07:25] LABS: CALCIUM, SERUM 9.5 mg/dL (8.5-10.1); CREATININE 6.4 mg/dL (0.6-1.3); POTASSIUM 3.9 mmol/L (3.5-5.1)
[2023-04-24] MEDS: BLOOD SUGAR DIAGNOSTIC 1 EACH STRIP IN SCH ×4 (07:30→22:09)
[2023-04-24] MEDS: ALBUTEROL FS 2.5 MG/0.5 ML VIAL.NEB NEB SCH ×3 (07:35→20:01)
[2023-04-24 08:00] VITALS: BP_SYST 114; BP_SYST 129; BP_DIAS 59; BP_DIAS 69; TEMP 98.3; TEMP 98.4; O2SAT 100
[2023-04-24] MEDS: VIT B CMPLX 3/FA/VIT C/BIOTIN 1 TAB TABLET GT SCH (08:54)
[2023-04-24] MEDS: MIDODRINE HCL (5MG) 5 MG TABLET PO SCH ×4 (08:55→18:10)
[2023-04-24] MEDS: LEVOTHYROXINE SODIUM 25 MCG TABLET GT SCH (08:55)
[2023-04-24] MEDS: INSULIN REGULAR, HUMAN 100 UNIT/ML 3 ML VIAL SQ PRN ×4 (08:58→22:15)
[2023-04-24] MEDS: POLYETHYLENE GLYCOL 3350 17 GM POWD.PACK GT SCH (09:08)
[2023-04-24] MEDS: HYDROCORTISONE 1% CREAM 28.35 GM TUBE TP SCH ×2 (09:08→17:00)
[2023-04-24] MEDS: CLOTRIMAZOLE/BETAMETASONE DIPROPIONATE 15 GM TUBE TP SCH ×2 (09:08→17:00)
[2023-04-24] MEDS: PANTOPRAZOLE 40 MG/PACK PACK GT SCH ×3 (09:11→21:22)
[2023-04-24] MEDS: INSULIN GLARGINE, 100 UNIT/ML CARTRIDGE SQ SCH ×2 (09:15→17:00)
[2023-04-24 12:00] VITALS: BP 129/69; TEMP 98.4; O2SAT 100
[2023-04-24] MEDS: QUETIAPINE FUMARATE 25 MG TABLET PO PRN (13:10)
[2023-04-24] MEDS: diphenhydrAMINE HCL 25 MG CAPSULE PO PRN ×2 (15:29→23:05)
[2023-04-24 16:00] VITALS: BP 111/82; TEMP 97.5; O2SAT 100
[2023-04-24 20:00] VITALS: BP 153/66; TEMP 98.4; O2SAT 100
[2023-04-24] MEDS: ATORVASTATIN 10 MG TABLET GT SCH (21:23)
[2023-04-24] MEDS: LORAZEPAM INJ 2 MG/ML VIAL IV PRN (23:05)
[2023-04-25] VITALS: BP 165/53; TEMP 99.4; O2SAT 100
[2023-04-25] MEDS: NEPRO 1,000 ML BOTTLE GT PRN (03:43)
[2023-04-25 04:00] VITALS: BP 140/61; TEMP 98.5; O2SAT 98
[2023-04-25] MEDS: ZOSYN IVPB 2.25 G in IV D5W 50ml IV SCH (04:02)
[2023-04-25] MEDS: LORAZEPAM INJ 2 MG/ML VIAL IV PRN ×3 (05:08→22:43)
[2023-04-25 06:33] LABS: BASOPHILS % (AUTO) 0.4 % (0.0-2.0); EOSINOPHILS # (AUTO) 1.2 K/uL (0.0-0.7); EOSINOPHILS % (AUTO) 11.8 % (0.0-6.0); HEMATOCRIT 25 % (39-51); HEMOGLOBIN 7.9 g/dL (13.5-17.5); LYMPHOCYTES # (AUTO) 1.4 K/uL (0.8-4.8); LYMPHOCYTES % (AUTO) 13.6 % (20.0-44.0); MEAN CORPUSCULAR HEMOGLOBIN 30 PG (26.0-33.0); MEAN CORPUSCULAR HGB CONC 32 g/dl (31.0-36.0); MEAN CORPUSCULAR VOLUME 96 fL (80-96); MONOCYTES # (AUTO) 0.5 K/uL (0.1-1.30); MONOCYTES % (AUTO) 4.7 % (2.0-12.0); NEUTROPHILS # (AUTO) 7.3 K/uL (1.8-8.9); NEUTROPHILS % (AUTO) 69.5 % (43.0-81.0); PLATELET COUNT (AUTO) 337 K/uL (150-450); RED BLOOD CELL COUNT(AUTO) 2.61 MIL/uL (4.5-6.0); RED CELL DISTRIBUTION WIDTH 18.4 % (11.5-15.0); WHITE BLOOD COUNT (AUTO) 10.5 K/uL (4.3-11.0)
[2023-04-25 07:11] LABS: CALCIUM, SERUM 9.4 mg/dL (8.5-10.1); POTASSIUM 3.8 mmol/L (3.5-5.1)
[2023-04-25 07:27] LABS: CREATININE 7.9 mg/dL (0.6-1.3)
[2023-04-25] MEDS: ALBUTEROL FS 2.5 MG/0.5 ML VIAL.NEB NEB SCH ×3 (07:46→19:59)
[2023-04-25 08:00] VITALS: BP 101/59; TEMP 98.4; O2SAT 98
[2023-04-25] MEDS: BLOOD SUGAR DIAGNOSTIC 1 EACH STRIP IN SCH ×4 (08:08→21:59)
[2023-04-25] MEDS: INSULIN REGULAR, HUMAN 100 UNIT/ML 3 ML VIAL SQ PRN ×3 (08:11→22:00)
[2023-04-25] MEDS: VIT B CMPLX 3/FA/VIT C/BIOTIN 1 TAB TABLET GT SCH (08:12)
[2023-04-25] MEDS: CLOTRIMAZOLE/BETAMETASONE DIPROPIONATE 15 GM TUBE TP SCH ×2 (08:12→17:19)
[2023-04-25] MEDS: LEVOTHYROXINE SODIUM 25 MCG TABLET GT SCH (08:12)
[2023-04-25] MEDS: POLYETHYLENE GLYCOL 3350 17 GM POWD.PACK GT SCH (08:12)
[2023-04-25] MEDS: HYDROCORTISONE 1% CREAM 28.35 GM TUBE TP SCH ×2 (08:13→17:18)
[2023-04-25] MEDS: MIDODRINE HCL (5MG) 5 MG TABLET PO SCH ×3 (08:15→17:15)
[2023-04-25] MEDS: INSULIN GLARGINE, 100 UNIT/ML CARTRIDGE SQ SCH ×2 (10:19→17:00)
[2023-04-25 12:00] VITALS: BP 129/60; TEMP 98.6; O2SAT 98
[2023-04-25] MEDS: diphenhydrAMINE HCL 25 MG CAPSULE PO PRN (14:27)
[2023-04-25 16:00] VITALS: BP 148/69; TEMP 98.4; O2SAT 100
[2023-04-25 20:00] VITALS: BP 155/72; TEMP 98.2; O2SAT 100
[2023-04-25] MEDS: PANTOPRAZOLE 40 MG/PACK PACK GT SCH (21:30)
[2023-04-25] MEDS: ATORVASTATIN 10 MG TABLET GT SCH (21:30)
[2023-04-26] VITALS: BP 147/49; TEMP 97.9; O2SAT 100
[2023-04-26 04:00] VITALS: BP 141/45; TEMP 97; O2SAT 100
[2023-04-26] MEDS: LORAZEPAM INJ 2 MG/ML VIAL IV PRN (04:23)
[2023-04-26] MEDS: NEPRO 1,000 ML BOTTLE GT PRN (05:59)
[2023-04-26 06:58] LABS: BASOPHILS # (AUTO) 0.1 K/uL (0.0-0.2); BASOPHILS % (AUTO) 0.4 % (0.0-2.0); EOSINOPHILS # (AUTO) 1.3 K/uL (0.0-0.7); EOSINOPHILS % (AUTO) 9.1 % (0.0-6.0); HEMATOCRIT 28 % (39-51); HEMOGLOBIN 8.6 g/dL (13.5-17.5); LYMPHOCYTES # (AUTO) 1.4 K/uL (0.8-4.8); LYMPHOCYTES % (AUTO) 10.4 % (20.0-44.0); MEAN CORPUSCULAR HEMOGLOBIN 30 PG (26.0-33.0); MEAN CORPUSCULAR HGB CONC 31 g/dl (31.0-36.0); MEAN CORPUSCULAR VOLUME 96 fL (80-96); MONOCYTES # (AUTO) 0.5 K/uL (0.1-1.30); MONOCYTES % (AUTO) 3.9 % (2.0-12.0); NEUTROPHILS # (AUTO) 10.7 K/uL (1.8-8.9); NEUTROPHILS % (AUTO) 76.2 % (43.0-81.0); PLATELET COUNT (AUTO) 343 K/uL (150-450); RED BLOOD CELL COUNT(AUTO) 2.85 MIL/uL (4.5-6.0); RED CELL DISTRIBUTION WIDTH 17.7 % (11.5-15.0)
[2023-04-26 07:12] LABS: POTASSIUM 4.5 mmol/L (3.5-5.1)
[2023-04-26 07:15] LABS: CREATININE 9.3 mg/dL (0.6-1.3)
[2023-04-26] MEDS: BLOOD SUGAR DIAGNOSTIC 1 EACH STRIP IN SCH ×4 (07:25→22:00)
[2023-04-26 08:00] VITALS: BP 107/45; TEMP 98.6; O2SAT 100
[2023-04-26] MEDS: ALBUTEROL FS 2.5 MG/0.5 ML VIAL.NEB NEB SCH ×3 (08:09→19:44)
[2023-04-26] MEDS: POLYETHYLENE GLYCOL 3350 17 GM POWD.PACK GT SCH (08:32)
[2023-04-26] MEDS: VIT B CMPLX 3/FA/VIT C/BIOTIN 1 TAB TABLET GT SCH (08:33)
[2023-04-26] MEDS: PANTOPRAZOLE 40 MG/PACK PACK GT SCH ×2 (08:33→20:52)
[2023-04-26] MEDS: LEVOTHYROXINE SODIUM 25 MCG TABLET GT SCH (08:33)
[2023-04-26] MEDS: CLOTRIMAZOLE/BETAMETASONE DIPROPIONATE 15 GM TUBE TP SCH ×2 (08:34→16:12)
[2023-04-26] MEDS: HYDROCORTISONE 1% CREAM 28.35 GM TUBE TP SCH ×2 (08:34→16:12)
[2023-04-26] MEDS: MIDODRINE HCL (5MG) 5 MG TABLET PO SCH ×3 (08:34→16:14)
[2023-04-26] MEDS: INSULIN GLARGINE, 100 UNIT/ML CARTRIDGE SQ SCH ×2 (08:53→16:15)
[2023-04-26] MEDS ORDERED: ALBUMIN 25% 25 GM in PREMIX 1 EA IV PRN (10:00)
[2023-04-26 12:00] VITALS: BP 145/50; TEMP 98.2; O2SAT 97
[2023-04-26 16:00] VITALS: BP 156/93; TEMP 98.2; O2SAT 100
[2023-04-26 20:00] VITALS: BP 157/55; TEMP 100.2; O2SAT 100
[2023-04-26] MEDS: diphenhydrAMINE HCL 25 MG CAPSULE PO PRN (20:53)
[2023-04-26] MEDS: ATORVASTATIN 10 MG TABLET GT SCH (20:54)
[2023-04-26] MEDS: QUETIAPINE FUMARATE 25 MG TABLET PO PRN (20:55)
[2023-04-26] MEDS: ACETAMINOPHEN 650 MG/20.3 ML UDC GT PRN (23:21)
[2023-04-27] VITALS: BP 131/66; TEMP 99; O2SAT 100
[2023-04-27] MEDS: INSULIN REGULAR, HUMAN 100 UNIT/ML 3 ML VIAL SQ PRN ×5 (00:04→23:26)
[2023-04-27 04:00] VITALS: BP 145/45; TEMP 100.6; O2SAT 100
[2023-04-27 06:19] LABS: BASOPHILS # (AUTO) 0.2 K/uL (0.0-0.2); BASOPHILS % (AUTO) 0.8 % (0.0-2.0); EOSINOPHILS % (AUTO) 4.3 % (0.0-6.0); HEMATOCRIT 28 % (39-51); HEMOGLOBIN 8.9 g/dL (13.5-17.5); LYMPHOCYTES # (AUTO) 1.2 K/uL (0.8-4.8); LYMPHOCYTES % (AUTO) 5.2 % (20.0-44.0); MEAN CORPUSCULAR HEMOGLOBIN 31 PG (26.0-33.0); MEAN CORPUSCULAR HGB CONC 32 g/dl (31.0-36.0); MEAN CORPUSCULAR VOLUME 96 fL (80-96); MONOCYTES # (AUTO) 0.7 K/uL (0.1-1.30); MONOCYTES % (AUTO) 2.9 % (2.0-12.0); NEUTROPHILS # (AUTO) 20.1 K/uL (1.8-8.9); NEUTROPHILS % (AUTO) 86.8 % (43.0-81.0); PLATELET COUNT (AUTO) 392 K/uL (150-450); RED BLOOD CELL COUNT(AUTO) 2.93 MIL/uL (4.5-6.0); RED CELL DISTRIBUTION WIDTH 17.3 % (11.5-15.0); WHITE BLOOD COUNT (AUTO) 23.2 K/uL (4.3-11.0)
[2023-04-27 06:34] LABS: CALCIUM, SERUM 9.7 mg/dL (8.5-10.1); CREATININE 7.2 mg/dL (0.6-1.3)
[2023-04-27] MEDS: ALBUTEROL FS 2.5 MG/0.5 ML VIAL.NEB NEB SCH ×3 (07:43→20:17)
[2023-04-27 08:00] VITALS: BP 118/40; TEMP 102.4; O2SAT 100
[2023-04-27] MEDS: BLOOD SUGAR DIAGNOSTIC 1 EACH STRIP IN SCH ×4 (08:54→23:21)
[2023-04-27] MEDS: POLYETHYLENE GLYCOL 3350 17 GM POWD.PACK GT SCH (09:42)
[2023-04-27] MEDS: MIDODRINE HCL (5MG) 5 MG TABLET PO SCH ×3 (09:42→16:47)
[2023-04-27] MEDS: VIT B CMPLX 3/FA/VIT C/BIOTIN 1 TAB TABLET GT SCH (09:42)
[2023-04-27] MEDS: PANTOPRAZOLE 40 MG/PACK PACK GT SCH ×2 (09:43→20:48)
[2023-04-27] MEDS: LEVOTHYROXINE SODIUM 25 MCG TABLET GT SCH (09:43)
[2023-04-27] MEDS: INSULIN GLARGINE, 100 UNIT/ML CARTRIDGE SQ SCH ×2 (09:48→17:05)
[2023-04-27] MEDS: HYDROCORTISONE 1% CREAM 28.35 GM TUBE TP SCH ×2 (09:50→17:26)
[2023-04-27] MEDS: CLOTRIMAZOLE/BETAMETASONE DIPROPIONATE 15 GM TUBE TP SCH ×2 (09:51→17:27)
[2023-04-27 12:00] VITALS: BP 126/57; TEMP 100.1; O2SAT 100
[2023-04-27 16:00] VITALS: BP 133/44; TEMP 99.9; O2SAT 100
[2023-04-27] MEDS: NEPRO 1,000 ML BOTTLE GT PRN (19:58)
[2023-04-27 20:17] VITALS: BP 162/67; TEMP 100.4; O2SAT 100
[2023-04-27] MEDS: ACETAMINOPHEN 650 MG/20.3 ML UDC GT PRN (20:48)
[2023-04-27] MEDS: ATORVASTATIN 10 MG TABLET GT SCH (21:02)
[2023-04-27] MEDS: diphenhydrAMINE HCL 25 MG CAPSULE PO PRN (23:26)
[2023-04-28 04:00] VITALS: BP 130/54; TEMP 100.9; O2SAT 100
[2023-04-28] MEDS: ACETAMINOPHEN 650 MG/20.3 ML UDC GT PRN ×2 (05:07→20:17)
[2023-04-28 06:17] LABS: BASOPHILS # (AUTO) 0.2 K/uL (0.0-0.2); BASOPHILS % (AUTO) 0.6 % (0.0-2.0); EOSINOPHILS # (AUTO) 0.5 K/uL (0.0-0.7); EOSINOPHILS % (AUTO) 1.7 % (0.0-6.0); HEMATOCRIT 29 % (39-51); HEMOGLOBIN 8.9 g/dL (13.5-17.5); LYMPHOCYTES # (AUTO) 1.5 K/uL (0.8-4.8); LYMPHOCYTES % (AUTO) 4.6 % (20.0-44.0); MEAN CORPUSCULAR HEMOGLOBIN 30 PG (26.0-33.0); MEAN CORPUSCULAR HGB CONC 30 g/dl (31.0-36.0); MEAN CORPUSCULAR VOLUME 99 fL (80-96); MONOCYTES # (AUTO) 1.1 K/uL (0.1-1.30); MONOCYTES % (AUTO) 3.3 % (2.0-12.0); NEUTROPHILS # (AUTO) 29.4 K/uL (1.8-8.9); NEUTROPHILS % (AUTO) 89.8 % (43.0-81.0); PLATELET COUNT (AUTO) 384 K/uL (150-450); RED BLOOD CELL COUNT(AUTO) 2.95 MIL/uL (4.5-6.0); RED CELL DISTRIBUTION WIDTH 17.4 % (11.5-15.0)
[2023-04-28 06:27] LABS: WHITE BLOOD COUNT (AUTO) 32.7 K/uL (4.3-11.0)
[2023-04-28 06:44] LABS: CALCIUM, SERUM 9.7 mg/dL (8.5-10.1); POTASSIUM 5.3 mmol/L (3.5-5.1)
[2023-04-28 06:46] LABS: CREATININE 8.9 mg/dL (0.6-1.3)
[2023-04-28] MEDS: BLOOD SUGAR DIAGNOSTIC 1 EACH STRIP IN SCH ×4 (07:25→23:21)
[2023-04-28] MEDS: INSULIN REGULAR, HUMAN 100 UNIT/ML 3 ML VIAL SQ PRN ×3 (07:26→23:24)
[2023-04-28] MEDS: ALBUTEROL FS 2.5 MG/0.5 ML VIAL.NEB NEB SCH ×3 (07:36→20:58)
[2023-04-28 08:00] VITALS: BP 135/75; TEMP 98.7; O2SAT 100
[2023-04-28] MEDS: PANTOPRAZOLE 40 MG/PACK PACK GT SCH ×2 (08:30→20:16)
[2023-04-28] MEDS: VIT B CMPLX 3/FA/VIT C/BIOTIN 1 TAB TABLET GT SCH (08:30)
[2023-04-28] MEDS: LEVOTHYROXINE SODIUM 25 MCG TABLET GT SCH (08:30)
[2023-04-28] MEDS: POLYETHYLENE GLYCOL 3350 17 GM POWD.PACK GT SCH (08:30)
[2023-04-28] MEDS: MIDODRINE HCL (5MG) 5 MG TABLET PO SCH ×3 (08:30→16:15)
[2023-04-28] MEDS: INSULIN GLARGINE, 100 UNIT/ML CARTRIDGE SQ SCH ×2 (08:35→16:17)
[2023-04-28] MEDS: HYDROCORTISONE 1% CREAM 28.35 GM TUBE TP SCH ×2 (08:47→16:21)
[2023-04-28] MEDS: CLOTRIMAZOLE/BETAMETASONE DIPROPIONATE 15 GM TUBE TP SCH ×2 (08:48→16:21)
[2023-04-28 10:17] LABS: BAND % (MANUAL) 2 % (0.0-5.0); BASOPHILS % (MANUAL) 0 % (0.0-2.0); EOSINOPHILS % (MANUAL) 1 % (0-4); LYMPHOCYTES % (MANUAL) 6 % (16-48); MONOCYTES % (MANUAL) 4 % (0-11.0); NEUTROPHILS % (MANUAL) 87 (42-76)
[2023-04-28 10:18] LABS: ANISOCYTOSIS 1+; PLATELET ESTIMATE ADEQUATE
[2023-04-28 12:00] VITALS: BP 80/45; TEMP 99.7; O2SAT 100
[2023-04-28] MEDS ORDERED: CEFEPIME 2 GM in IV D5W 100 ML IV ONE (12:00)
[2023-04-28] MEDS: METRONIDAZOLE 500MG/ NS 100ML 500 MG in PREMIX 1 EA IV SCH ×2 (12:27→20:16)
[2023-04-28 16:00] VITALS: BP 125/65; TEMP 98.7; O2SAT 100
[2023-04-28] MEDS ORDERED: EPOETIN ALFA (10,000 UNIT) 10,000 UNIT/ML VIAL IV ONE (16:00)
[2023-04-28 20:00] VITALS: BP 95/55; TEMP 103.1; O2SAT 100
[2023-04-28] MEDS: ATORVASTATIN 10 MG TABLET GT SCH (22:48)
[2023-04-29] VITALS: BP 109/52; TEMP 98.8; O2SAT 100
[2023-04-29 04:00] VITALS: BP 109/60; TEMP 98.6; O2SAT 100
[2023-04-29] MEDS: METRONIDAZOLE 500MG/ NS 100ML 500 MG in PREMIX 1 EA IV SCH ×3 (06:00→20:42)
[2023-04-29] MEDS: BLOOD SUGAR DIAGNOSTIC 1 EACH STRIP IN SCH ×4 (06:53→22:06)
[2023-04-29] MEDS: INSULIN REGULAR, HUMAN 100 UNIT/ML 3 ML VIAL SQ PRN ×4 (06:58→22:05)
[2023-04-29 07:03] LABS: BASOPHILS # (AUTO) 0.1 K/uL (0.0-0.2); BASOPHILS % (AUTO) 0.2 % (0.0-2.0); EOSINOPHILS % (AUTO) 2.8 % (0.0-6.0); HEMATOCRIT 28 % (39-51); HEMOGLOBIN 8.9 g/dL (13.5-17.5); LYMPHOCYTES # (AUTO) 1.6 K/uL (0.8-4.8); LYMPHOCYTES % (AUTO) 4.8 % (20.0-44.0); MEAN CORPUSCULAR HEMOGLOBIN 30 PG (26.0-33.0); MEAN CORPUSCULAR HGB CONC 32 g/dl (31.0-36.0); MEAN CORPUSCULAR VOLUME 96 fL (80-96); MONOCYTES # (AUTO) 0.9 K/uL (0.1-1.30); MONOCYTES % (AUTO) 2.7 % (2.0-12.0); NEUTROPHILS # (AUTO) 30.4 K/uL (1.8-8.9); NEUTROPHILS % (AUTO) 89.5 % (43.0-81.0); PLATELET COUNT (AUTO) 400 K/uL (150-450); RED BLOOD CELL COUNT(AUTO) 2.91 MIL/uL (4.5-6.0); RED CELL DISTRIBUTION WIDTH 17.4 % (11.5-15.0)
[2023-04-29 07:08] LABS: WHITE BLOOD COUNT (AUTO) 33.9 K/uL (4.3-11.0)
[2023-04-29 07:24] LABS: CALCIUM, SERUM 9.5 mg/dL (8.5-10.1); CREATININE 6.6 mg/dL (0.6-1.3); POTASSIUM 3.7 mmol/L (3.5-5.1)
[2023-04-29] MEDS: ALBUTEROL FS 2.5 MG/0.5 ML VIAL.NEB NEB SCH ×3 (07:39→20:18)
[2023-04-29 08:00] VITALS: BP 97/47; TEMP 98.8; O2SAT 100
[2023-04-29] MEDS: PANTOPRAZOLE 40 MG/PACK PACK GT SCH ×2 (09:10→20:41)
[2023-04-29] MEDS: POLYETHYLENE GLYCOL 3350 17 GM POWD.PACK GT SCH (09:10)
[2023-04-29] MEDS: MIDODRINE HCL (5MG) 5 MG TABLET PO SCH ×3 (09:10→16:36)
[2023-04-29] MEDS: HYDROCORTISONE 1% CREAM 28.35 GM TUBE TP SCH ×2 (09:11→16:36)
[2023-04-29] MEDS: LEVOTHYROXINE SODIUM 25 MCG TABLET GT SCH (09:11)
[2023-04-29] MEDS: VIT B CMPLX 3/FA/VIT C/BIOTIN 1 TAB TABLET GT SCH (09:11)
[2023-04-29] MEDS: CLOTRIMAZOLE/BETAMETASONE DIPROPIONATE 15 GM TUBE TP SCH ×2 (09:11→16:37)
[2023-04-29] MEDS: INSULIN GLARGINE, 100 UNIT/ML CARTRIDGE SQ SCH ×2 (09:14→16:35)
[2023-04-29 10:59] LABS: BASOPHILS % (MANUAL) 0 % (0.0-2.0); LYMPHOCYTES % (MANUAL) 7 % (16-48); MONOCYTES % (MANUAL) 5 % (0-11.0); NEUTROPHILS % (MANUAL) 84 (42-76)
[2023-04-29 11:00] LABS: ANISOCYTOSIS 1+; BAND % (MANUAL) 2 % (0.0-5.0); EOSINOPHILS % (MANUAL) 2 % (0-4); PLATELET ESTIMATE ADEQUATE
[2023-04-29] MEDS: CEFEPIME 1 GM in IV D5W 50 ML IV SCH (11:21)
[2023-04-29 12:00] VITALS: BP 107/60; TEMP 98.8; O2SAT 100
[2023-04-29] MEDS: NEPRO 1,000 ML BOTTLE GT PRN (14:05)
[2023-04-29 16:00] VITALS: BP 129/69; TEMP 98.8; O2SAT 100
[2023-04-29 20:00] VITALS: BP 133/57; TEMP 98.8; O2SAT 99
[2023-04-29] MEDS: diphenhydrAMINE HCL 25 MG CAPSULE PO PRN (20:41)
[2023-04-29] MEDS: ATORVASTATIN 10 MG TABLET GT SCH (21:18)
[2023-04-29] MEDS: QUETIAPINE FUMARATE 25 MG TABLET PO PRN (21:18)
[2023-04-30] VITALS: BP 133/53; TEMP 99.5; O2SAT 100
[2023-04-30 04:00] VITALS: BP 126/61; TEMP 98.8; O2SAT 100
[2023-04-30] MEDS: METRONIDAZOLE 500MG/ NS 100ML 500 MG in PREMIX 1 EA IV SCH ×3 (04:55→21:52)
[2023-04-30] MEDS: LORAZEPAM INJ 2 MG/ML VIAL IV PRN ×2 (04:56→13:16)
[2023-04-30 06:55] LABS: CALCIUM, SERUM 9.9 mg/dL (8.5-10.1); POTASSIUM 4.4 mmol/L (3.5-5.1)
[2023-04-30 06:57] LABS: CREATININE 7.8 mg/dL (0.6-1.3)
[2023-04-30] MEDS: BLOOD SUGAR DIAGNOSTIC 1 EACH STRIP IN SCH ×4 (07:30→22:19)
[2023-04-30] MEDS: NEPRO 1,000 ML BOTTLE GT PRN (07:34)
[2023-04-30 08:00] VITALS: BP 88/51; TEMP 98.8; O2SAT 100
[2023-04-30] MEDS: ALBUTEROL FS 2.5 MG/0.5 ML VIAL.NEB NEB SCH ×3 (08:24→20:19)
[2023-04-30 09:11] LABS: BASOPHILS % (AUTO) 0.2 % (0.0-2.0); EOSINOPHILS # (AUTO) 1.4 K/uL (0.0-0.7); HEMATOCRIT 26 % (39-51); LYMPHOCYTES # (AUTO) 1.4 K/uL (0.8-4.8); LYMPHOCYTES % (AUTO) 7.2 % (20.0-44.0); MEAN CORPUSCULAR HEMOGLOBIN 30 PG (26.0-33.0); MEAN CORPUSCULAR HGB CONC 31 g/dl (31.0-36.0); MEAN CORPUSCULAR VOLUME 97 fL (80-96); MONOCYTES # (AUTO) 0.7 K/uL (0.1-1.30); MONOCYTES % (AUTO) 3.9 % (2.0-12.0); NEUTROPHILS # (AUTO) 15.7 K/uL (1.8-8.9); NEUTROPHILS % (AUTO) 81.7 % (43.0-81.0); PLATELET COUNT (AUTO) 384 K/uL (150-450); RED BLOOD CELL COUNT(AUTO) 2.68 MIL/uL (4.5-6.0); RED CELL DISTRIBUTION WIDTH 17.6 % (11.5-15.0); WHITE BLOOD COUNT (AUTO) 19.3 K/uL (4.3-11.0)
[2023-04-30] MEDS: PANTOPRAZOLE 40 MG/PACK PACK GT SCH ×2 (09:41→21:51)
[2023-04-30] MEDS: POLYETHYLENE GLYCOL 3350 17 GM POWD.PACK GT SCH (09:42)
[2023-04-30] MEDS: VIT B CMPLX 3/FA/VIT C/BIOTIN 1 TAB TABLET GT SCH (09:42)
[2023-04-30] MEDS: HYDROCORTISONE 1% CREAM 28.35 GM TUBE TP SCH ×2 (09:42→17:00)
[2023-04-30] MEDS: LEVOTHYROXINE SODIUM 25 MCG TABLET GT SCH (09:42)
[2023-04-30] MEDS: MIDODRINE HCL (5MG) 5 MG TABLET PO SCH ×3 (09:42→18:31)
[2023-04-30] MEDS: CLOTRIMAZOLE/BETAMETASONE DIPROPIONATE 15 GM TUBE TP SCH ×2 (09:43→17:00)
[2023-04-30] MEDS: INSULIN GLARGINE, 100 UNIT/ML CARTRIDGE SQ SCH ×2 (09:44→18:36)
[2023-04-30] MEDS: INSULIN REGULAR, HUMAN 100 UNIT/ML 3 ML VIAL SQ PRN ×4 (09:45→22:44)
[2023-04-30 12:00] VITALS: BP 98/52; TEMP 97.5; O2SAT 100
[2023-04-30] MEDS: diphenhydrAMINE HCL 25 MG CAPSULE PO PRN (13:17)
[2023-04-30] MEDS: CEFEPIME 1 GM in IV D5W 50 ML IV SCH (13:18)
[2023-04-30 16:00] VITALS: BP 122/64; TEMP 97.8; O2SAT 100
[2023-04-30 20:00] VITALS: BP 154/68; TEMP 98.8; O2SAT 100
[2023-04-30] MEDS: ATORVASTATIN 10 MG TABLET GT SCH (21:51)
[2023-05-01 00:05] VITALS: BP 156/67; TEMP 99; O2SAT 100
[2023-05-01] MEDS: diphenhydrAMINE HCL 25 MG CAPSULE PO PRN ×3 (01:48→22:04)
[2023-05-01 04:00] VITALS: BP 142/72; TEMP 98.4; O2SAT 100
[2023-05-01] MEDS: METRONIDAZOLE 500MG/ NS 100ML 500 MG in PREMIX 1 EA IV SCH ×3 (05:30→21:00)
[2023-05-01 08:00] VITALS: BP 115/67; TEMP 98.4; O2SAT 100
[2023-05-01] MEDS: BLOOD SUGAR DIAGNOSTIC 1 EACH STRIP IN SCH ×4 (08:11→22:00)
[2023-05-01] MEDS: ALBUTEROL FS 2.5 MG/0.5 ML VIAL.NEB NEB SCH ×3 (08:34→20:06)
[2023-05-01] MEDS: VIT B CMPLX 3/FA/VIT C/BIOTIN 1 TAB TABLET GT SCH (09:15)
[2023-05-01] MEDS: PANTOPRAZOLE 40 MG/PACK PACK GT SCH ×2 (09:15→21:59)
[2023-05-01] MEDS: POLYETHYLENE GLYCOL 3350 17 GM POWD.PACK GT SCH (09:15)
[2023-05-01] MEDS: LEVOTHYROXINE SODIUM 25 MCG TABLET GT SCH (09:15)
[2023-05-01] MEDS: MIDODRINE HCL (5MG) 5 MG TABLET PO SCH ×3 (09:16→16:58)
[2023-05-01] MEDS: INSULIN GLARGINE, 100 UNIT/ML CARTRIDGE SQ SCH ×2 (09:21→16:58)
[2023-05-01] MEDS: CLOTRIMAZOLE/BETAMETASONE DIPROPIONATE 15 GM TUBE TP SCH ×2 (09:46→16:14)
[2023-05-01] MEDS: CEFEPIME 1 GM in IV D5W 50 ML IV SCH (11:18)
[2023-05-01] MEDS: NEPRO 1,000 ML BOTTLE GT PRN (11:18)
[2023-05-01 12:00] VITALS: BP 149/73; TEMP 98.2; O2SAT 97
[2023-05-01] MEDS: HYDROCORTISONE 1% CREAM 28.35 GM TUBE TP SCH ×2 (12:29→16:14)
[2023-05-01] MEDS: INSULIN REGULAR, HUMAN 100 UNIT/ML 3 ML VIAL SQ PRN ×3 (12:30→23:36)
[2023-05-01] MEDS: LORAZEPAM INJ 2 MG/ML VIAL IV PRN (13:00)
[2023-05-01 14:01] LABS: BASOPHILS # (AUTO) 0.1 K/uL (0.0-0.2); BASOPHILS % (AUTO) 0.6 % (0.0-2.0); EOSINOPHILS # (AUTO) 0.8 K/uL (0.0-0.7); EOSINOPHILS % (AUTO) 5.6 % (0.0-6.0); HEMATOCRIT 25 % (39-51); HEMOGLOBIN 7.8 g/dL (13.5-17.5); LYMPHOCYTES # (AUTO) 1.4 K/uL (0.8-4.8); LYMPHOCYTES % (AUTO) 10.2 % (20.0-44.0); MEAN CORPUSCULAR HEMOGLOBIN 30 PG (26.0-33.0); MEAN CORPUSCULAR HGB CONC 31 g/dl (31.0-36.0); MEAN CORPUSCULAR VOLUME 97 fL (80-96); MONOCYTES # (AUTO) 0.7 K/uL (0.1-1.30); MONOCYTES % (AUTO) 5.3 % (2.0-12.0); NEUTROPHILS # (AUTO) 10.8 K/uL (1.8-8.9); NEUTROPHILS % (AUTO) 78.3 % (43.0-81.0); PLATELET COUNT (AUTO) 395 K/uL (150-450); RED BLOOD CELL COUNT(AUTO) 2.57 MIL/uL (4.5-6.0); RED CELL DISTRIBUTION WIDTH 17.8 % (11.5-15.0); WHITE BLOOD COUNT (AUTO) 13.8 K/uL (4.3-11.0)
[2023-05-01 16:00] VITALS: BP 130/59; TEMP 98.8; O2SAT 97
[2023-05-01 20:00] VITALS: BP 135/86; TEMP 98.2; O2SAT 97
[2023-05-01] MEDS: ATORVASTATIN 10 MG TABLET GT SCH (22:02)
[2023-05-01] MEDS: QUETIAPINE FUMARATE 25 MG TABLET PO PRN (22:03)
[2023-05-02] VITALS: BP 124/58; TEMP 98.5
[2023-05-02] MEDS: LORAZEPAM INJ 2 MG/ML VIAL IV PRN ×5 (01:23→20:30)
[2023-05-02] MEDS: METRONIDAZOLE 500MG/ NS 100ML 500 MG in PREMIX 1 EA IV SCH (04:43)
[2023-05-02 06:00] VITALS: BP 150/60; TEMP 98.2; O2SAT 99
[2023-05-02 07:08] LABS: BASOPHILS % (AUTO) 0.3 % (0.0-2.0); EOSINOPHILS # (AUTO) 1.3 K/uL (0.0-0.7); EOSINOPHILS % (AUTO) 8.6 % (0.0-6.0); HEMATOCRIT 27 % (39-51); HEMOGLOBIN 8.4 g/dL (13.5-17.5); LYMPHOCYTES % (AUTO) 7.1 % (20.0-44.0); MEAN CORPUSCULAR HEMOGLOBIN 30 PG (26.0-33.0); MEAN CORPUSCULAR HGB CONC 31 g/dl (31.0-36.0); MEAN CORPUSCULAR VOLUME 97 fL (80-96); MONOCYTES # (AUTO) 0.7 K/uL (0.1-1.30); MONOCYTES % (AUTO) 4.6 % (2.0-12.0); NEUTROPHILS # (AUTO) 11.6 K/uL (1.8-8.9); NEUTROPHILS % (AUTO) 79.4 % (43.0-81.0); PLATELET COUNT (AUTO) 413 K/uL (150-450); RED BLOOD CELL COUNT(AUTO) 2.76 MIL/uL (4.5-6.0); RED CELL DISTRIBUTION WIDTH 17.5 % (11.5-15.0); WHITE BLOOD COUNT (AUTO) 14.6 K/uL (4.3-11.0)
[2023-05-02] MEDS: BLOOD SUGAR DIAGNOSTIC 1 EACH STRIP IN SCH ×4 (07:58→23:26)
[2023-05-02 08:00] VITALS: BP 177/68; TEMP 97.9; O2SAT 100
[2023-05-02] MEDS: POLYETHYLENE GLYCOL 3350 17 GM POWD.PACK GT SCH (08:05)
[2023-05-02] MEDS: PANTOPRAZOLE 40 MG/PACK PACK GT SCH ×2 (08:05→20:38)
[2023-05-02] MEDS: VIT B CMPLX 3/FA/VIT C/BIOTIN 1 TAB TABLET GT SCH (08:05)
[2023-05-02] MEDS: LEVOTHYROXINE SODIUM 25 MCG TABLET GT SCH (08:05)
[2023-05-02] MEDS: INSULIN GLARGINE, 100 UNIT/ML CARTRIDGE SQ SCH ×2 (08:08→17:00)
[2023-05-02] MEDS: ALBUTEROL FS 2.5 MG/0.5 ML VIAL.NEB NEB SCH ×3 (08:12→19:44)
[2023-05-02] MEDS: MIDODRINE HCL (5MG) 5 MG TABLET PO SCH ×3 (08:15→16:22)
[2023-05-02] MEDS: CLOTRIMAZOLE/BETAMETASONE DIPROPIONATE 15 GM TUBE TP SCH ×2 (08:30→17:22)
[2023-05-02] MEDS: HYDROCORTISONE 1% CREAM 28.35 GM TUBE TP SCH ×2 (08:30→17:22)
[2023-05-02] MEDS: diphenhydrAMINE HCL 25 MG CAPSULE PO PRN (08:47)
[2023-05-02] MEDS ORDERED: DIATR MEGLU/DIATRIZOATE SODIUM 30 ML BOTTLE (GASTROGRAPHIN) ONE (10:22)
[2023-05-02 12:00] VITALS: BP 110/87; TEMP 97.7; O2SAT 100
[2023-05-02] MEDS: CEFEPIME 1 GM in IV D5W 50 ML IV SCH (12:00)
[2023-05-02] MEDS: METRONIDAZOLE 500 MG TABLET GT SCH ×2 (13:00→20:38)
[2023-05-02 16:00] VITALS: BP 136/73; TEMP 99; O2SAT 100
[2023-05-02] MEDS: HYDROCORTISONE 2.5% CREAM 28.4 GM TUBE TP SCH (17:39)
[2023-05-02 20:00] VITALS: BP 130/75; TEMP 97.9; O2SAT 100
[2023-05-02] MEDS: ATORVASTATIN 10 MG TABLET GT SCH (21:14)
[2023-05-03] VITALS: BP 170/51; TEMP 98.1; O2SAT 100
[2023-05-03] MEDS: LORAZEPAM INJ 2 MG/ML VIAL IV PRN ×3 (00:04→15:53)
[2023-05-03] MEDS: INSULIN REGULAR, HUMAN 100 UNIT/ML 3 ML VIAL SQ PRN ×4 (00:12→22:58)
[2023-05-03 04:00] VITALS: BP 137/62; TEMP 98; O2SAT 100
[2023-05-03] MEDS: METRONIDAZOLE 500 MG TABLET GT SCH ×3 (05:22→21:42)
[2023-05-03] MEDS: BLOOD SUGAR DIAGNOSTIC 1 EACH STRIP IN SCH ×4 (06:16→22:54)
[2023-05-03 06:44] LABS: BASOPHILS # (AUTO) 0.1 K/uL (0.0-0.2); BASOPHILS % (AUTO) 0.5 % (0.0-2.0); EOSINOPHILS # (AUTO) 1.2 K/uL (0.0-0.7); EOSINOPHILS % (AUTO) 9.5 % (0.0-6.0); HEMATOCRIT 26 % (39-51); LYMPHOCYTES # (AUTO) 1.4 K/uL (0.8-4.8); LYMPHOCYTES % (AUTO) 11.4 % (20.0-44.0); MEAN CORPUSCULAR HEMOGLOBIN 31 PG (26.0-33.0); MEAN CORPUSCULAR HGB CONC 31 g/dl (31.0-36.0); MEAN CORPUSCULAR VOLUME 99 fL (80-96); MONOCYTES # (AUTO) 0.6 K/uL (0.1-1.30); MONOCYTES % (AUTO) 4.8 % (2.0-12.0); NEUTROPHILS % (AUTO) 73.8 % (43.0-81.0); PLATELET COUNT (AUTO) 399 K/uL (150-450); RED BLOOD CELL COUNT(AUTO) 2.61 MIL/uL (4.5-6.0); RED CELL DISTRIBUTION WIDTH 17.1 % (11.5-15.0); WHITE BLOOD COUNT (AUTO) 12.1 K/uL (4.3-11.0)
[2023-05-03 07:04] LABS: CREATININE 5.4 mg/dL (0.6-1.3); MAGNESIUM 2.6 mg/dL (1.8-2.4); PHOSPHORUS 3.5 mg/dL (2.5-4.9); POTASSIUM 3.9 mmol/L (3.5-5.1)
[2023-05-03 08:00] VITALS: BP 103/55; TEMP 99.5; O2SAT 100
[2023-05-03] MEDS: ALBUTEROL FS 2.5 MG/0.5 ML VIAL.NEB NEB SCH ×3 (08:24→19:36)
[2023-05-03] MEDS: INSULIN GLARGINE, 100 UNIT/ML CARTRIDGE SQ SCH ×2 (09:00→17:45)
[2023-05-03] MEDS: LEVOTHYROXINE SODIUM 25 MCG TABLET GT SCH (09:04)
[2023-05-03] MEDS: VIT B CMPLX 3/FA/VIT C/BIOTIN 1 TAB TABLET GT SCH (09:05)
[2023-05-03] MEDS: MIDODRINE HCL (5MG) 5 MG TABLET PO SCH ×3 (09:05→17:00)
[2023-05-03] MEDS: PANTOPRAZOLE 40 MG/PACK PACK GT SCH ×2 (09:05→21:42)
[2023-05-03] MEDS: HYDROCORTISONE 1% CREAM 28.35 GM TUBE TP SCH ×2 (09:22→18:07)
[2023-05-03] MEDS: CLOTRIMAZOLE/BETAMETASONE DIPROPIONATE 15 GM TUBE TP SCH ×2 (09:22→18:07)
[2023-05-03] MEDS: HYDROCORTISONE 2.5% CREAM 28.4 GM TUBE TP SCH ×3 (09:25→18:07)
[2023-05-03] MEDS: NEPRO 1,000 ML BOTTLE GT PRN (10:34)
[2023-05-03 12:00] VITALS: BP 132/62; TEMP 98.5; O2SAT 100
[2023-05-03] MEDS: CEFEPIME 1 GM in IV D5W 50 ML IV SCH (12:29)
[2023-05-03 16:00] VITALS: BP 149/43; TEMP 98; O2SAT 100
[2023-05-03 20:00] VITALS: BP 148/50; TEMP 98.6; O2SAT 100
[2023-05-03] MEDS: ATORVASTATIN 10 MG TABLET GT SCH (21:42)
[2023-05-03] MEDS: diphenhydrAMINE HCL 25 MG CAPSULE PO PRN (22:04)
[2023-05-04] VITALS: BP 152/69; TEMP 98.5; O2SAT 100
[2023-05-04 04:00] VITALS: BP 159/40; TEMP 98.7; O2SAT 100
[2023-05-04] MEDS: METRONIDAZOLE 500 MG TABLET GT SCH ×2 (05:04→12:19)
[2023-05-04] MEDS: NEPRO 1,000 ML BOTTLE GT PRN (05:04)
[2023-05-04] MEDS: ALBUTEROL FS 2.5 MG/0.5 ML VIAL.NEB NEB SCH ×3 (07:33→19:30)
[2023-05-04] MEDS: BLOOD SUGAR DIAGNOSTIC 1 EACH STRIP IN SCH ×3 (07:54→16:49)
[2023-05-04] MEDS: INSULIN REGULAR, HUMAN 100 UNIT/ML 3 ML VIAL SQ PRN ×2 (07:56→11:28)
[2023-05-04 08:00] VITALS: BP 135/56; TEMP 98.7; O2SAT 100
[2023-05-04] MEDS: PANTOPRAZOLE 40 MG/PACK PACK GT SCH (08:11)
[2023-05-04] MEDS: MIDODRINE HCL (5MG) 5 MG TABLET PO SCH ×3 (08:11→16:15)
[2023-05-04] MEDS: VIT B CMPLX 3/FA/VIT C/BIOTIN 1 TAB TABLET GT SCH (08:11)
[2023-05-04] MEDS: LEVOTHYROXINE SODIUM 25 MCG TABLET GT SCH (08:11)
[2023-05-04] MEDS: HYDROCORTISONE 1% CREAM 28.35 GM TUBE TP SCH ×2 (08:21→16:48)
[2023-05-04] MEDS: INSULIN GLARGINE, 100 UNIT/ML CARTRIDGE SQ SCH ×2 (08:21→16:25)
[2023-05-04] MEDS: HYDROCORTISONE 2.5% CREAM 28.4 GM TUBE TP SCH ×3 (08:22→16:48)
[2023-05-04] MEDS: CLOTRIMAZOLE/BETAMETASONE DIPROPIONATE 15 GM TUBE TP SCH ×2 (08:22→16:49)
[2023-05-04] MEDS: CEFEPIME 1 GM in IV D5W 50 ML IV SCH (11:25)
[2023-05-04 12:00] VITALS: BP 121/57; TEMP 98.1; O2SAT 100
[2023-05-04 16:00] VITALS: BP 105/65; TEMP 97.9; O2SAT 100
[2023-05-04 16:15] VITALS: BP 115/65
== END 2023-05-04 21:15 | DRG 870 ==
LOC: ER 10:38 → TELE-TD 12:53 → TELE1 13:07
PROVIDERS: ADMIT Nurse Practitioner Family; ATTEND Internal Medicine
PROC: 5A1955Z Respiratory Ventilation, Greater than 96 Consecutive Hours (ICD-10-PCS; principal; 2023-04-06)
PROC: 5A1D70Z Performance of Urinary Filtration, Intermittent, Less than 6 Hours Per Day (ICD-10-PCS; 2023-04-07)
PROC: 05H633Z Insertion of Infusion Device into Left Subclavian Vein, Percutaneous Approach (ICD-10-PCS; 2023-04-07)
PROC: B547ZZA Ultrasonography of Left Subclavian Vein, Guidance (ICD-10-PCS; 2023-04-07)
PROC: 5A1D70Z Performance of Urinary Filtration, Intermittent, Less than 6 Hours Per Day (ICD-10-PCS; 2023-04-07)
PROC: 0HB7XZZ Excision of Abdomen Skin, External Approach (ICD-10-PCS; 2023-04-09)
PROC: 0JPT3XZ Removal of Tunneled Vascular Access Device from Trunk Subcutaneous Tissue and Fascia, Percutaneous Approach (ICD-10-PCS; 2023-04-10)
PROC: 05H633Z Insertion of Infusion Device into Left Subclavian Vein, Percutaneous Approach (ICD-10-PCS; 2023-04-14)
PROC: B547ZZA Ultrasonography of Left Subclavian Vein, Guidance (ICD-10-PCS; 2023-04-14)
PROC: 05H633Z Insertion of Infusion Device into Left Subclavian Vein, Percutaneous Approach (ICD-10-PCS; 2023-04-21)
PROC: B547ZZA Ultrasonography of Left Subclavian Vein, Guidance (ICD-10-PCS; 2023-04-21)
PROC: 05H633Z Insertion of Infusion Device into Left Subclavian Vein, Percutaneous Approach (ICD-10-PCS; 2023-05-01)
PROC: B547ZZA Ultrasonography of Left Subclavian Vein, Guidance (ICD-10-PCS; 2023-05-01)
PROC: 0D20XUZ Change Feeding Device in Upper Intestinal Tract, External Approach (ICD-10-PCS; 2023-05-02)
PROC: 05H633Z Insertion of Infusion Device into Left Subclavian Vein, Percutaneous Approach (ICD-10-PCS; 2023-05-04)
PROC: B547ZZA Ultrasonography of Left Subclavian Vein, Guidance (ICD-10-PCS; 2023-05-04)
DX: A41.4 Sepsis due to anaerobes (principal); E43 Unspecified severe protein-calorie malnutrition; J96.20 Acute and chronic respiratory failure, unspecified whether with hypoxia or hypercapnia; N18.6 End stage renal disease; I12.0 Hypertensive chronic kidney disease with stage 5 chronic kidney disease or end stage renal disease; Z99.11 Dependence on respirator [ventilator] status; D68.69 Other thrombophilia; E87.1 Hypo-osmolality and hyponatremia; G93.49 Other encephalopathy; I69.351 Hemiplegia and hemiparesis following cerebral infarction affecting right dominant side; K94.23 Gastrostomy malfunction; E86.0 Dehydration; I95.9 Hypotension, unspecified; Z93.0 Tracheostomy status; Z99.2 Dependence on renal dialysis; D63.8 Anemia in other chronic diseases classified elsewhere; E03.9 Hypothyroidism, unspecified; E78.5 Hyperlipidemia, unspecified; E87.5 Hyperkalemia; E87.6 Hypokalemia; G40.909 Epilepsy, unspecified, not intractable, without status epilepticus; I25.2 Old myocardial infarction; L30.4 Erythema intertrigo; Z79.4 Long term (current) use of insulin; Z20.822 Contact with and (suspected) exposure to COVID-19; R13.10 Dysphagia, unspecified; M89.8X9 Other specified disorders of bone, unspecified site; E11.22 Type 2 diabetes mellitus with diabetic chronic kidney disease; L98.8 Other specified disorders of the skin and subcutaneous tissue; R21 Rash and other nonspecific skin eruption; Z74.09 Other reduced mobility; L85.3 Xerosis cutis; N20.0 Calculus of kidney; R65.20 Severe sepsis without septic shock; Z86.74 Personal history of sudden cardiac arrest; Y92.129 Unspecified place in nursing home as the place of occurrence of the external cause; Y83.8 Other surgical procedures as the cause of abnormal reaction of the patient, or of later complication, without mention of misadventure at the time of the procedure; Y73.8 Miscellaneous gastroenterology and urology devices associated with adverse incidents, not elsewhere classified
CPT/HCPCS: 31720; 36410; 36415; 71045-TC; 71250-TC; 74018; 80048-TC; 80076-TC; 80202-TC; 82962-TC; 83690-TC; 83735-TC; 84100-TC; 85025-TC; 86706; 87040-TC; 87081-TC; 87340; 90935-TC; 94002-TC; 94003-TC; 94760-TC; 94762-TC; 94799-TC; A4216; A4223; A4623; A6253; A6403; A7526; C9113; G0378; J0456; J0692; J0696; J0885; J1200; J1815; J2060; J2405; J2543; J3370; J3490; J7030; J7050; J7060; P9047; Q0163; Q9963

== ENCOUNTER 2023-09-19 04:09 | Inpatient (IN) | payer MEDICARE, OTHER ==
[~2023-09-19] VITALS: Ht 172.7 cm; Wt 70.3 kg
[~2023-09-19 04:09] MED LIST changes: +ACET-868 PO; +AMIN30LI2 GT; -HEPA500014 SQ; -HEPA50008 SQ; -HYDR-500 GT; +LEVO500P10 IV; +METR500T PO; +MIDO5TAB4 PO; -MUPI22OI7 NS; +ONDA4TAB5 GT; +TRIA15OI2 TP; -VANC1VIA34 XX
[2023-09-19 05:10] LABS: BASOPHILS # (AUTO) 0.2 K/uL (0.0-0.2); BASOPHILS % (AUTO) 0.6 % (0.0-2.0); EOSINOPHILS # (AUTO) 0.5 K/uL (0.0-0.7); EOSINOPHILS % (AUTO) 1.7 % (0.0-6.0); HEMATOCRIT 26 % (39-51); HEMOGLOBIN 8.3 g/dL (13.5-17.5); LYMPHOCYTES # (AUTO) 1.4 K/uL (0.8-4.8); LYMPHOCYTES % (AUTO) 4.7 % (20.0-44.0); MEAN CORPUSCULAR HEMOGLOBIN 30 PG (26.0-33.0); MEAN CORPUSCULAR HGB CONC 32 g/dl (31.0-36.0); MEAN CORPUSCULAR VOLUME 94 fL (80-96); MONOCYTES # (AUTO) 0.9 K/uL (0.1-1.30); NEUTROPHILS # (AUTO) 27.9 K/uL (1.8-8.9); PLATELET COUNT (AUTO) 348 K/uL (150-450); RED BLOOD CELL COUNT(AUTO) 2.74 MIL/uL (4.5-6.0); RED CELL DISTRIBUTION WIDTH 16.8 % (11.5-15.0)
[2023-09-19 05:19] LABS: CALCIUM, SERUM 9.5 mg/dL (8.5-10.1); CARBON DIOXIDE 30 mmol/L (21-32); CHLORIDE 90 mmol/L (98-107); CREATININE 6.3 mg/dL (0.6-1.3); GLUCOSE 319 mg/dL (74-106); POTASSIUM 3.4 mmol/L (3.5-5.1); SODIUM SERUM 134 mmol/L (136-145)
[2023-09-19 05:29] LABS: UREA NITROGEN, BLOOD 96 mg/dL (7-18)
[2023-09-19 05:33] LABS: INR 1.03 (0.91-1.10); PARTIAL THROMBOPLASTIN TIME 38.7 SEC (24.3-34.3); PROTHROMBIN TIME 10.9 SECS (9.2-11.1)
[2023-09-19] MEDS ORDERED: VANCOMYCIN 1 GM /D5W 250 ML PB IV ONE (05:35)
[2023-09-19] MEDS ORDERED: CEFEPIME 1 GM VIAL ONE (05:35)
[2023-09-19] MEDS: CEFEPIME 1 GM in IV D5W 50 ML IV ONE (05:45)
[2023-09-19] MEDS ORDERED: ONDANSETRON HCL/PF 4 MG/2 ML VIAL IVP PRN (06:00)
[2023-09-19] MEDS ORDERED: MAGNESIUM HYDROXIDE 30 ML UDC PO PRN (06:00)
[2023-09-19] MEDS ORDERED: MAG HYDROX/AL HYDROX/SIMETH 30 ML UDC PO PRN (06:00)
[2023-09-19] MEDS ORDERED: Z GUARD REMEDY 4 OZ OINT TP PRN (06:00)
[2023-09-19] MEDS ORDERED: HYDROCODONE/APAP 5/325MG TABLET PO PRN (06:00)
[2023-09-19] MEDS ORDERED: INSULIN REGULAR, HUMAN 100 UNIT/ML 3 ML VIAL SQ PRN (06:00)
[2023-09-19] MEDS ORDERED: DEXTROSE 50%-WATER 50 ML DISP.SYRIN IV PRN ×2 (06:00→07:00)
[2023-09-19] MEDS ORDERED: ACETAMINOPHEN 325 MG TABLET PO PRN (06:00)
[2023-09-19] MEDS ORDERED: ONDANSETRON 4 MG TAB.RAPDIS ONE (06:05)
[2023-09-19] MEDS ORDERED: ONDANSETRON HCL/PF 4 MG/2 ML VIAL ONE (06:06)
[2023-09-19] MEDS: VANCOMYCIN 1 GM in IV D5W 250 ML IV ONE (06:15)
[2023-09-19] MEDS ORDERED: BLOOD SUGAR DIAGNOSTIC 1 EACH STRIP IN SCH (07:30)
[2023-09-19] MEDS ORDERED: PANTOPRAZOLE 40 MG TABLET.DR PO SCH (07:30)
[2023-09-19 07:45] VITALS: O2SAT 100
[2023-09-19] MEDS ORDERED: ACET-868 GT (08:42)
[2023-09-19] MEDS ORDERED: HYDR-500 GT (08:42)
[2023-09-19] MEDS ORDERED: ALLA266C2 TP (08:42)
[2023-09-19] MEDS ORDERED: OMEP40CA21 GT (08:42)
[2023-09-19] MEDS ORDERED: ALBU2.5V38 IH ×2 (08:42)
[2023-09-19] MEDS ORDERED: NYST15OI2 TP (08:42)
[2023-09-19] MEDS ORDERED: *INS REG3 SQ (08:42)
[2023-09-19] MEDS ORDERED: MIDO10TA GT (08:42)
[2023-09-19] MEDS ORDERED: LACT1CAP69 GT (08:42)
[2023-09-19] MEDS: HEPARIN SODIUM, PORCINE 5000 UNITS/1 ML VIAL SQ SCH (09:00)
[2023-09-19 10:00] VITALS: BP 108/61; TEMP 100.8; O2SAT 100
[2023-09-19 10:21] LABS: BAND % (MANUAL) 6 % (0.0-5.0); LYMPHOCYTES % (MANUAL) 4 % (16-48); MONOCYTES % (MANUAL) 1 % (0-11.0); NEUTROPHILS % (MANUAL) 89 (42-76); PLATELET ESTIMATE ADEQUATE
[2023-09-19] MEDS ORDERED: POLYVINYL ALCOHOL 15 ML BOTTLE EACHEYE PRN (11:00)
[2023-09-19] MEDS ORDERED: VIT B CMPLX 3/FA/VIT C/BIOTIN 1 TAB TABLET PO SCH (11:00)
[2023-09-19 12:00] VITALS: BP 112/57; TEMP 101.3; O2SAT 100
[2023-09-19] MEDS ORDERED: NEPRO 1,000 ML BOTTLE GT PRN (12:00)
[2023-09-19] MEDS: PANTOPRAZOLE 40 MG/PACK PACK GT SCH (12:19)
[2023-09-19] MEDS: BLOOD SUGAR DIAGNOSTIC 1 EACH STRIP IN SCH (12:25)
[2023-09-19] MEDS: INSULIN REGULAR, HUMAN 100 UNIT/ML 3 ML VIAL SQ PRN (12:26)
[2023-09-19] MEDS: ALBUTEROL FS 2.5 MG/3 ML VIAL.NEB IH SCH (13:26)
[2023-09-19 15:15] LABS: IRON, SERUM 19 ug/dl (50-175); TOTAL IRON BINDING CAPACITY 149 ug/dl (250-450)
[2023-09-19] MEDS: EPOETIN ALFA (10,000 UNIT) 10,000 UNIT/ML VIAL IV ONE (15:16)
[2023-09-19 16:00] VITALS: BP 92/50; TEMP 101.3; O2SAT 100
[2023-09-19] MEDS ORDERED: PROSOURCE / PROSTAT (PYXIS) 30 ML UDC GT SCH (17:00)
[2023-09-19] MEDS: LACTOBACILLUS RHAMNOSUS GG 1 EACH CAP.SPRINK GT SCH (17:04)
[2023-09-19] MEDS: DOCUSATE SODIUM LIQ 100 MG/10 ML UDC GT SCH (17:05)
[2023-09-19] MEDS: CHLORHEXIDINE GLUCONATE 15 ML UDC MM SCH (17:05)
[2023-09-19] MEDS: ACETAMINOPHEN 650 MG/SUPP.RECT RC PRN (17:24)
[2023-09-19] MEDS: NEPRO 1,000 ML BOTTLE GT PRN (17:48)
[2023-09-19 19:29] LABS: APPEARANCE,URINE BLOODY (CLEAR)
[2023-09-19 19:30] LABS: COLOR,URINE RED (YELLOW)
[2023-09-19 19:37] LABS: BACTERIA,URINE 1+ /HPF (None Seen); RBC,URINE TOO NUMEROUS TO COUN /HPF (0-2); SQUAMOUS EPITHELIAL CELL,UR 0-2 /HPF (None Seen)
[2023-09-19] MEDS ORDERED: ALBUMIN 25% 12.5 GM/50 ML BOTTLE IV STA (19:49)
[2023-09-19 20:00] VITALS: BP 94/50; TEMP 98.4; O2SAT 100
[2023-09-19] MEDS: ALBUMIN 25% 25 GM in PREMIX 1 EA IV STA (20:15)
[2023-09-19] MEDS: ATORVASTATIN 10 MG TABLET GT SCH (21:56)
[2023-09-19] MEDS: INSULIN GLARGINE, 100 UNIT/ML CARTRIDGE SQ SCH (23:20)
[2023-09-20] VITALS (7 sets, daily range): BP systolic 103–122; BP diastolic 44–69; TEMP 98.1–99.5; O2SAT 100
[2023-09-20] MEDS ORDERED: VANCOMYCIN 500 MG VIAL ONE (00:55)
[2023-09-20] MEDS: VANCOMYCIN 500 MG in IV D5W 100 ML IV PRN (01:13)
[2023-09-20] MEDS: CEFEPIME 1 GM in IV D5W 50 ML IV SCH (05:47)
[2023-09-20 07:57] LABS: BASOPHILS # (AUTO) 0.1 K/uL (0.0-0.2); BASOPHILS % (AUTO) 0.4 % (0.0-2.0); EOSINOPHILS % (AUTO) 5.3 % (0.0-6.0); HEMATOCRIT 24 % (39-51); HEMOGLOBIN 7.6 g/dL (13.5-17.5); LYMPHOCYTES # (AUTO) 1.2 K/uL (0.8-4.8); LYMPHOCYTES % (AUTO) 6.1 % (20.0-44.0); MEAN CORPUSCULAR HEMOGLOBIN 30 PG (26.0-33.0); MEAN CORPUSCULAR HGB CONC 32 g/dl (31.0-36.0); MEAN CORPUSCULAR VOLUME 94 fL (80-96); MONOCYTES # (AUTO) 0.5 K/uL (0.1-1.30); MONOCYTES % (AUTO) 2.8 % (2.0-12.0); NEUTROPHILS # (AUTO) 16.3 K/uL (1.8-8.9); NEUTROPHILS % (AUTO) 85.4 % (43.0-81.0); PLATELET COUNT (AUTO) 353 K/uL (150-450); RED BLOOD CELL COUNT(AUTO) 2.54 MIL/uL (4.5-6.0); RED CELL DISTRIBUTION WIDTH 16.6 % (11.5-15.0); WHITE BLOOD COUNT (AUTO) 19.1 K/uL (4.3-11.0)
[2023-09-20] MEDS: VIT B CMPLX 3/FA/VIT C/BIOTIN 1 TAB TABLET GT SCH (08:10)
[2023-09-20] MEDS: LEVOTHYROXINE SODIUM 25 MCG TABLET GT SCH (08:11)
[2023-09-20] MEDS: HYDROCODONE/APAP 5/325MG TABLET GT PRN (08:11)
[2023-09-20 08:14] LABS: CALCIUM, SERUM 9.7 mg/dL (8.5-10.1); CREATININE 4.8 mg/dL (0.6-1.3); MAGNESIUM 2.4 mg/dL (1.8-2.4); PHOSPHORUS 2.7 mg/dL (2.5-4.9); POTASSIUM 3.5 mmol/L (3.5-5.1)
[2023-09-20] MEDS ORDERED: NEO/BACI/POLY B/HC OINT (15GM) 15 GM TUBE TP SCH (12:30)
[2023-09-20] MEDS ORDERED: HYDROCORTISONE 1% CREAM 28.35 GM TUBE TP SCH (13:00)
[2023-09-20] MEDS ORDERED: DEXTROSE 50%-WATER 50 ML DISP.SYRIN IV PRN (13:30)
[2023-09-20] MEDS: BLOOD SUGAR DIAGNOSTIC 1 EACH STRIP IN SCH (17:30)
[2023-09-20] MEDS: HYDROCORTISONE 2.5% CREAM 28.4 GM TUBE TP SCH (17:34)
[2023-09-21] VITALS (8 sets, daily range): BP systolic 93–119; BP diastolic 37–65; TEMP 98–99.2; O2SAT 96–100
[2023-09-21] MEDS: INSULIN REGULAR, HUMAN 100 UNIT/ML 3 ML VIAL SQ PRN (00:07)
[2023-09-21 08:21] LABS: BASOPHILS # (AUTO) 0.1 K/uL (0.0-0.2); BASOPHILS % (AUTO) 0.7 % (0.0-2.0); EOSINOPHILS # (AUTO) 1.6 K/uL (0.0-0.7); EOSINOPHILS % (AUTO) 9.7 % (0.0-6.0); HEMATOCRIT 24 % (39-51); HEMOGLOBIN 7.6 g/dL (13.5-17.5); LYMPHOCYTES # (AUTO) 1.3 K/uL (0.8-4.8); LYMPHOCYTES % (AUTO) 7.9 % (20.0-44.0); MEAN CORPUSCULAR HEMOGLOBIN 30 PG (26.0-33.0); MEAN CORPUSCULAR HGB CONC 32 g/dl (31.0-36.0); MEAN CORPUSCULAR VOLUME 93 fL (80-96); MONOCYTES # (AUTO) 0.7 K/uL (0.1-1.30); NEUTROPHILS # (AUTO) 13.2 K/uL (1.8-8.9); NEUTROPHILS % (AUTO) 77.7 % (43.0-81.0); PLATELET COUNT (AUTO) 409 K/uL (150-450); RED BLOOD CELL COUNT(AUTO) 2.56 MIL/uL (4.5-6.0); RED CELL DISTRIBUTION WIDTH 16.5 % (11.5-15.0); WHITE BLOOD COUNT (AUTO) 16.9 K/uL (4.3-11.0)
[2023-09-21 08:52] LABS: CALCIUM, SERUM 9.8 mg/dL (8.5-10.1); CREATININE 6.7 mg/dL (0.6-1.3); MAGNESIUM 2.6 mg/dL (1.8-2.4); PHOSPHORUS 2.7 mg/dL (2.5-4.9); POTASSIUM 3.5 mmol/L (3.5-5.1)
[2023-09-21 13:05] LABS: BAND % (MANUAL) 1 % (0.0-5.0); EOSINOPHILS % (MANUAL) 9 % (0-4); LYMPHOCYTES % (MANUAL) 9 % (16-48); METAMYELOCYTES % 1 % (0-0); MONOCYTES % (MANUAL) 3 % (0-11.0); MYELOCYTES % 1 % (0-0); NEUTROPHILS % (MANUAL) 76 (42-76); PLATELET ESTIMATE ADEQUATE; SMUDGE CELLS 1+
[2023-09-21 13:06] LABS: ANISOCYTOSIS 1+; OVALOCYTES 1+
[2023-09-21] MEDS: EPOETIN ALFA (10,000 UNIT) 10,000 UNIT/ML VIAL IV ONE (16:04)
[2023-09-21] MEDS: SOD FERRIC GLUC 125 MG in IV NS 0.9% 100 ML IV SCH (16:56)
[2023-09-21] MEDS ORDERED: ALBUMIN 25% 25 GM in PREMIX 1 EA IV PRN (20:00)
[2023-09-21] MEDS ORDERED: ALBUMIN 5% 500 ML IV ONE (20:03)
[2023-09-21] MEDS: ALBUMIN 25% 25 GM in PREMIX 1 EA IV ONE (20:30)
[2023-09-22] VITALS (7 sets, daily range): BP systolic 92–109; BP diastolic 53–67; TEMP 97.8–99.4; O2SAT 99–100
[2023-09-22 08:27] LABS: BASOPHILS % (AUTO) 0.3 % (0.0-2.0); EOSINOPHILS # (AUTO) 1.4 K/uL (0.0-0.7); EOSINOPHILS % (AUTO) 8.9 % (0.0-6.0); HEMATOCRIT 27 % (39-51); HEMOGLOBIN 8.4 g/dL (13.5-17.5); LYMPHOCYTES # (AUTO) 1.5 K/uL (0.8-4.8); LYMPHOCYTES % (AUTO) 9.4 % (20.0-44.0); MEAN CORPUSCULAR HEMOGLOBIN 30 PG (26.0-33.0); MEAN CORPUSCULAR HGB CONC 32 g/dl (31.0-36.0); MEAN CORPUSCULAR VOLUME 95 fL (80-96); MONOCYTES # (AUTO) 0.5 K/uL (0.1-1.30); MONOCYTES % (AUTO) 3.4 % (2.0-12.0); NEUTROPHILS # (AUTO) 12.1 K/uL (1.8-8.9); PLATELET COUNT (AUTO) 469 K/uL (150-450); RED BLOOD CELL COUNT(AUTO) 2.82 MIL/uL (4.5-6.0); RED CELL DISTRIBUTION WIDTH 16.3 % (11.5-15.0); WHITE BLOOD COUNT (AUTO) 15.5 K/uL (4.3-11.0)
[2023-09-22 08:48] LABS: MAGNESIUM 2.5 mg/dL (1.8-2.4); PHOSPHORUS 4.1 mg/dL (2.5-4.9)
[2023-09-22 10:45] LABS: CALCIUM, SERUM 10.7 mg/dL (8.5-10.1); CREATININE 4.5 mg/dL (0.6-1.3); POTASSIUM 3.9 mmol/L (3.5-5.1)
[2023-09-23] VITALS (8 sets, daily range): BP systolic 87–114; BP diastolic 51–89; TEMP 96.7–98.7; O2SAT 97–100
[2023-09-23 06:58] LABS: BASOPHILS # (AUTO) 0.1 K/uL (0.0-0.2); BASOPHILS % (AUTO) 0.4 % (0.0-2.0); EOSINOPHILS % (AUTO) 10.6 % (0.0-6.0); HEMATOCRIT 26 % (39-51); HEMOGLOBIN 8.2 g/dL (13.5-17.5); LYMPHOCYTES # (AUTO) 1.5 K/uL (0.8-4.8); MEAN CORPUSCULAR HEMOGLOBIN 30 PG (26.0-33.0); MEAN CORPUSCULAR HGB CONC 32 g/dl (31.0-36.0); MEAN CORPUSCULAR VOLUME 95 fL (80-96); MONOCYTES # (AUTO) 0.6 K/uL (0.1-1.30); MONOCYTES % (AUTO) 3.3 % (2.0-12.0); NEUTROPHILS # (AUTO) 14.6 K/uL (1.8-8.9); NEUTROPHILS % (AUTO) 77.7 % (43.0-81.0); PLATELET COUNT (AUTO) 473 K/uL (150-450); RED BLOOD CELL COUNT(AUTO) 2.73 MIL/uL (4.5-6.0); RED CELL DISTRIBUTION WIDTH 16.4 % (11.5-15.0); WHITE BLOOD COUNT (AUTO) 18.8 K/uL (4.3-11.0)
[2023-09-23 07:14] LABS: CALCIUM, SERUM 9.6 mg/dL (8.5-10.1); CREATININE 6.3 mg/dL (0.6-1.3)
[2023-09-23 07:20] LABS: MAGNESIUM 2.8 mg/dL (1.8-2.4); PHOSPHORUS 4.4 mg/dL (2.5-4.9)
[2023-09-23] MEDS: EPOETIN ALFA (10,000 UNIT) 10,000 UNIT/ML VIAL IV ONE (11:22)
[2023-09-24] VITALS: BP 101/52; TEMP 98; O2SAT 100
[2023-09-24 04:00] VITALS: BP 116/87; TEMP 98; O2SAT 100
[2023-09-24 07:56] LABS: BASOPHILS % (AUTO) 0.3 % (0.0-2.0); EOSINOPHILS # (AUTO) 1.4 K/uL (0.0-0.7); EOSINOPHILS % (AUTO) 9.7 % (0.0-6.0); HEMATOCRIT 25 % (39-51); LYMPHOCYTES # (AUTO) 1.2 K/uL (0.8-4.8); LYMPHOCYTES % (AUTO) 8.4 % (20.0-44.0); MEAN CORPUSCULAR HEMOGLOBIN 31 PG (26.0-33.0); MEAN CORPUSCULAR HGB CONC 33 g/dl (31.0-36.0); MEAN CORPUSCULAR VOLUME 95 fL (80-96); MONOCYTES # (AUTO) 0.6 K/uL (0.1-1.30); MONOCYTES % (AUTO) 3.8 % (2.0-12.0); NEUTROPHILS # (AUTO) 11.6 K/uL (1.8-8.9); NEUTROPHILS % (AUTO) 77.8 % (43.0-81.0); PLATELET COUNT (AUTO) 467 K/uL (150-450); RED BLOOD CELL COUNT(AUTO) 2.57 MIL/uL (4.5-6.0); RED CELL DISTRIBUTION WIDTH 16.4 % (11.5-15.0); WHITE BLOOD COUNT (AUTO) 14.9 K/uL (4.3-11.0)
[2023-09-24 08:00] VITALS: BP 98/52; TEMP 98.2; O2SAT 100
[2023-09-24 08:06] LABS: CALCIUM, SERUM 9.3 mg/dL (8.5-10.1); CREATININE 4.7 mg/dL (0.6-1.3); MAGNESIUM 2.6 mg/dL (1.8-2.4); POTASSIUM 3.6 mmol/L (3.5-5.1)
[2023-09-24] MEDS: LORAZEPAM INJ 2 MG/ML VIAL IV PRN (09:25)
[2023-09-24 12:00] VITALS: BP_SYST 100; BP_SYST 98; BP_DIAS 52; BP_DIAS 77; TEMP 98; TEMP 98.2; O2SAT 100
[2023-09-24 14:02] LABS: EOSINOPHILS % (MANUAL) 11 % (0-4); LYMPHOCYTES % (MANUAL) 8 % (16-48); MONOCYTES % (MANUAL) 5 % (0-11.0); NEUTROPHILS % (MANUAL) 76 (42-76); PLATELET ESTIMATE INCREASED
[2023-09-24 14:05] LABS: ANISOCYTOSIS 1+; STOMATOCYTES 1+
[2023-09-24 16:00] VITALS: BP 97/85; TEMP 98.5; O2SAT 100
[2023-09-24] MEDS: diphenhydrAMINE HCL 50 MG/ML VIAL IV PRN (16:44)
[2023-09-24 20:00] VITALS: BP 133/59; TEMP 96.8; O2SAT 97
[2023-09-25] VITALS (7 sets, daily range): BP systolic 101–125; BP diastolic 49–82; TEMP 97–98.4; O2SAT 97–100
[2023-09-25 06:52] LABS: BASOPHILS # (AUTO) 0.1 K/uL (0.0-0.2); BASOPHILS % (AUTO) 0.5 % (0.0-2.0); EOSINOPHILS # (AUTO) 1.7 K/uL (0.0-0.7); EOSINOPHILS % (AUTO) 11.9 % (0.0-6.0); HEMATOCRIT 24 % (39-51); HEMOGLOBIN 7.5 g/dL (13.5-17.5); LYMPHOCYTES # (AUTO) 1.6 K/uL (0.8-4.8); LYMPHOCYTES % (AUTO) 11.7 % (20.0-44.0); MEAN CORPUSCULAR HEMOGLOBIN 30 PG (26.0-33.0); MEAN CORPUSCULAR HGB CONC 31 g/dl (31.0-36.0); MEAN CORPUSCULAR VOLUME 96 fL (80-96); MONOCYTES # (AUTO) 0.6 K/uL (0.1-1.30); MONOCYTES % (AUTO) 4.2 % (2.0-12.0); NEUTROPHILS # (AUTO) 9.9 K/uL (1.8-8.9); NEUTROPHILS % (AUTO) 71.7 % (43.0-81.0); PLATELET COUNT (AUTO) 512 K/uL (150-450); RED BLOOD CELL COUNT(AUTO) 2.52 MIL/uL (4.5-6.0); RED CELL DISTRIBUTION WIDTH 16.3 % (11.5-15.0); WHITE BLOOD COUNT (AUTO) 13.9 K/uL (4.3-11.0)
[2023-09-25 07:06] LABS: CALCIUM, SERUM 8.9 mg/dL (8.5-10.1); CREATININE 6.4 mg/dL (0.6-1.3); POTASSIUM 3.9 mmol/L (3.5-5.1)
[2023-09-25 11:56] LABS: BASOPHILS % (MANUAL) 0 % (0.0-2.0); EOSINOPHILS % (MANUAL) 5 % (0-4); LYMPHOCYTES % (MANUAL) 18 % (16-48); MONOCYTES % (MANUAL) 4 % (0-11.0); NEUTROPHILS % (MANUAL) 73 (42-76)
[2023-09-25 11:57] LABS: ANISOCYTOSIS 1+; PLATELET ESTIMATE INCREASED; STOMATOCYTES 1+
[2023-09-26 01:00] VITALS: BP 124/62; TEMP 98.5; O2SAT 97
[2023-09-26 04:00] VITALS: BP 129/67; TEMP 98.3; O2SAT 98
[2023-09-26 07:31] LABS: BASOPHILS % (AUTO) 0.2 % (0.0-2.0); EOSINOPHILS # (AUTO) 1.7 K/uL (0.0-0.7); EOSINOPHILS % (AUTO) 13.9 % (0.0-6.0); HEMATOCRIT 23 % (39-51); HEMOGLOBIN 7.3 g/dL (13.5-17.5); LYMPHOCYTES # (AUTO) 1.4 K/uL (0.8-4.8); LYMPHOCYTES % (AUTO) 11.7 % (20.0-44.0); MEAN CORPUSCULAR HEMOGLOBIN 30 PG (26.0-33.0); MEAN CORPUSCULAR HGB CONC 31 g/dl (31.0-36.0); MEAN CORPUSCULAR VOLUME 97 fL (80-96); MONOCYTES # (AUTO) 0.6 K/uL (0.1-1.30); MONOCYTES % (AUTO) 4.7 % (2.0-12.0); NEUTROPHILS # (AUTO) 8.2 K/uL (1.8-8.9); NEUTROPHILS % (AUTO) 69.5 % (43.0-81.0); PLATELET COUNT (AUTO) 501 K/uL (150-450); RED CELL DISTRIBUTION WIDTH 16.2 % (11.5-15.0); WHITE BLOOD COUNT (AUTO) 11.9 K/uL (4.3-11.0)
[2023-09-26 07:45] LABS: CALCIUM, SERUM 8.7 mg/dL (8.5-10.1); POTASSIUM 4.2 mmol/L (3.5-5.1)
[2023-09-26 08:00] VITALS: BP_SYST 114; BP_SYST 96; BP_DIAS 53; BP_DIAS 59; TEMP 98; O2SAT 100
[2023-09-26 09:52] LABS: EOSINOPHILS % (MANUAL) 14 % (0-4); LYMPHOCYTES % (MANUAL) 10 % (16-48); MONOCYTES % (MANUAL) 4 % (0-11.0); NEUTROPHILS % (MANUAL) 72 (42-76); PLATELET ESTIMATE INCREASED
[2023-09-26 09:53] LABS: ANISOCYTOSIS 1+
[2023-09-26] MEDS ORDERED: hydrOXYzine HCL SYRUP 10 MG/5 ML UDC GT PRN (11:00)
[2023-09-26 12:00] VITALS: BP 112/50; TEMP 97.9; O2SAT 100
[2023-09-26] MEDS ORDERED: hydrOXYzine HCL INJ 50 MG/ML VIAL IM PRN (12:00)
[2023-09-26] MEDS ORDERED: hydrOXYzine 10 MG TABLET GT PRN ×2 (14:30)
[2023-09-26] MEDS: ALBUMIN 25% 25 GM in PREMIX 1 EA IV PRN (14:30)
[2023-09-26 16:00] VITALS: BP 123/72; TEMP 98.9; O2SAT 100
[2023-09-26 20:00] VITALS: BP 133/71; TEMP 98.8; O2SAT 100
[2023-09-26] MEDS: LORAZEPAM INJ 2 MG/ML VIAL IV PRN (20:02)
[2023-09-27] VITALS (9 sets, daily range): BP systolic 114–132; BP diastolic 55–98; TEMP 96.2–99.1; O2SAT 100
[2023-09-27 07:10] LABS: BASOPHILS % (AUTO) 0.3 % (0.0-2.0); EOSINOPHILS # (AUTO) 1.6 K/uL (0.0-0.7); HEMATOCRIT 24 % (39-51); HEMOGLOBIN 7.8 g/dL (13.5-17.5); LYMPHOCYTES # (AUTO) 1.1 K/uL (0.8-4.8); LYMPHOCYTES % (AUTO) 11.7 % (20.0-44.0); MEAN CORPUSCULAR HEMOGLOBIN 32 PG (26.0-33.0); MEAN CORPUSCULAR HGB CONC 32 g/dl (31.0-36.0); MEAN CORPUSCULAR VOLUME 98 fL (80-96); MONOCYTES # (AUTO) 0.5 K/uL (0.1-1.30); MONOCYTES % (AUTO) 5.2 % (2.0-12.0); NEUTROPHILS # (AUTO) 6.5 K/uL (1.8-8.9); NEUTROPHILS % (AUTO) 66.8 % (43.0-81.0); PLATELET COUNT (AUTO) 502 K/uL (150-450); RED BLOOD CELL COUNT(AUTO) 2.46 MIL/uL (4.5-6.0); RED CELL DISTRIBUTION WIDTH 16.4 % (11.5-15.0); WHITE BLOOD COUNT (AUTO) 9.7 K/uL (4.3-11.0)
[2023-09-27 07:22] LABS: POTASSIUM 4.6 mmol/L (3.5-5.1)
[2023-09-27 07:51] LABS: CALCIUM, SERUM 9.3 mg/dL (8.5-10.1); CREATININE 6.3 mg/dL (0.6-1.3)
[2023-09-27 10:27] LABS: EOSINOPHILS % (MANUAL) 18 % (0-4); LYMPHOCYTES % (MANUAL) 16 % (16-48); MONOCYTES % (MANUAL) 6 % (0-11.0); NEUTROPHILS % (MANUAL) 60 (42-76)
[2023-09-27 10:36] LABS: PLATELET ESTIMATE INCREASED
[2023-09-27 10:37] LABS: ANISOCYTOSIS 1+
[2023-09-27 15:06] LABS: HEPATITIS B SURFACE AB Non Reactive (.)
[2023-09-27] MEDS ORDERED: DIATR MEGLU/DIATRIZOATE SODIUM 30 ML BOTTLE (GASTROGRAPHIN) ONE (19:22)
[2023-09-28] VITALS: BP 126/79; TEMP 97.8; O2SAT 100
[2023-09-28 04:00] VITALS: BP 133/67; TEMP 98; O2SAT 96
[2023-09-28 07:36] VITALS: O2SAT 100
[2023-09-28 08:00] VITALS: BP 133/62; TEMP 98.2; O2SAT 96
[2023-09-28 08:15] LABS: BASOPHILS # (AUTO) 0.1 K/uL (0.0-0.2); BASOPHILS % (AUTO) 0.5 % (0.0-2.0); EOSINOPHILS # (AUTO) 1.7 K/uL (0.0-0.7); EOSINOPHILS % (AUTO) 14.1 % (0.0-6.0); HEMATOCRIT 26 % (39-51); HEMOGLOBIN 8.3 g/dL (13.5-17.5); LYMPHOCYTES # (AUTO) 1.6 K/uL (0.8-4.8); LYMPHOCYTES % (AUTO) 13.5 % (20.0-44.0); MEAN CORPUSCULAR HEMOGLOBIN 31 PG (26.0-33.0); MEAN CORPUSCULAR HGB CONC 32 g/dl (31.0-36.0); MEAN CORPUSCULAR VOLUME 98 fL (80-96); MONOCYTES # (AUTO) 0.6 K/uL (0.1-1.30); MONOCYTES % (AUTO) 5.5 % (2.0-12.0); NEUTROPHILS # (AUTO) 7.8 K/uL (1.8-8.9); NEUTROPHILS % (AUTO) 66.4 % (43.0-81.0); PLATELET COUNT (AUTO) 549 K/uL (150-450); RED BLOOD CELL COUNT(AUTO) 2.67 MIL/uL (4.5-6.0); RED CELL DISTRIBUTION WIDTH 17.5 % (11.5-15.0); WHITE BLOOD COUNT (AUTO) 11.8 K/uL (4.3-11.0)
[2023-09-28 08:47] LABS: CALCIUM, SERUM 9.2 mg/dL (8.5-10.1); POTASSIUM 5.6 mmol/L (3.5-5.1)
[2023-09-28 09:19] LABS: CREATININE 8.4 mg/dL (0.6-1.3)
[2023-09-28 11:33] LABS: ANISOCYTOSIS 1+; BAND % (MANUAL) 2 % (0.0-5.0); EOSINOPHILS % (MANUAL) 12 % (0-4); HYPOCHROMASIA 1+; LYMPHOCYTES % (MANUAL) 12 % (16-48); METAMYELOCYTES % 2 % (0-0); MONOCYTES % (MANUAL) 4 % (0-11.0); MYELOCYTES % 1 % (0-0); NEUTROPHILS % (MANUAL) 67 (42-76); PLATELET ESTIMATE INCREASED
[2023-09-28 11:34] LABS: STOMATOCYTES 1+
[2023-09-28 12:00] VITALS: BP 100/60; TEMP 98.1; O2SAT 100
== END 2023-09-28 14:20 | DRG 870 ==
LOC: ER 04:24 → TELE1 09:19 → TELE-TD 11:02 → TELE1 09-21 10:52
PROVIDERS: ADMIT Nurse Practitioner Acute Care; ATTEND Internal Medicine
PROC: 5A1955Z Respiratory Ventilation, Greater than 96 Consecutive Hours (ICD-10-PCS; principal; 2023-09-19)
PROC: 5A1D70Z Performance of Urinary Filtration, Intermittent, Less than 6 Hours Per Day (ICD-10-PCS; 2023-09-19)
PROC: 0D20XUZ Change Feeding Device in Upper Intestinal Tract, External Approach (ICD-10-PCS; 2023-09-27)
DX: A41.9 Sepsis, unspecified organism (principal); J18.9 Pneumonia, unspecified organism; N18.6 End stage renal disease; J96.20 Acute and chronic respiratory failure, unspecified whether with hypoxia or hypercapnia; R53.2 Functional quadriplegia; E43 Unspecified severe protein-calorie malnutrition; I12.0 Hypertensive chronic kidney disease with stage 5 chronic kidney disease or end stage renal disease; J95.851 Ventilator associated pneumonia; D68.69 Other thrombophilia; N39.0 Urinary tract infection, site not specified; Z99.11 Dependence on respirator [ventilator] status; I69.351 Hemiplegia and hemiparesis following cerebral infarction affecting right dominant side; K94.23 Gastrostomy malfunction; I95.9 Hypotension, unspecified; E11.22 Type 2 diabetes mellitus with diabetic chronic kidney disease; E11.51 Type 2 diabetes mellitus with diabetic peripheral angiopathy without gangrene; R65.20 Severe sepsis without septic shock; E03.9 Hypothyroidism, unspecified; I25.2 Old myocardial infarction; D63.1 Anemia in chronic kidney disease; R13.10 Dysphagia, unspecified; Z99.2 Dependence on renal dialysis; Z93.0 Tracheostomy status; Z20.822 Contact with and (suspected) exposure to COVID-19; B96.1 Klebsiella pneumoniae [K. pneumoniae] as the cause of diseases classified elsewhere; Z79.4 Long term (current) use of insulin; Z86.74 Personal history of sudden cardiac arrest; E78.5 Hyperlipidemia, unspecified; R21 Rash and other nonspecific skin eruption; Y84.8 Other medical procedures as the cause of abnormal reaction of the patient, or of later complication, without mention of misadventure at the time of the procedure; Y73.8 Miscellaneous gastroenterology and urology devices associated with adverse incidents, not elsewhere classified; L29.9 Pruritus, unspecified; M89.8X9 Other specified disorders of bone, unspecified site; Y83.3 Surgical operation with formation of external stoma as the cause of abnormal reaction of the patient, or of later complication, without mention of misadventure at the time of the procedure; Y92.129 Unspecified place in nursing home as the place of occurrence of the external cause
CPT/HCPCS: 31720; 36415; 71045-TC; 74018; 80048-TC; 80202-TC; 81001; 82962-TC; 83540-TC; 83605-TC; 83735-TC; 83880; 84100-TC; 84484-TC; 85025-TC; 85730-TC; 86706; 87040-TC; 87081-TC; 87086-TC; 87340; 90935-TC; 94002-TC; 94003-TC; 94760-TC; 94761-TC; 94762-TC; 94799-TC; 99082-TC; A4216; A4223; A6253; A7526; G0378; J0692; J0885; J1200; J1644; J1815; J2060; J2405; J2916; J3370; J3410; J3490; J7030; J7050; J7060; P9045; P9047; Q0162; Q0177; Q9963

== ENCOUNTER 2023-12-14 16:52 | Inpatient (IN) | payer MEDICARE, OTHER ==
[~2023-12-14] VITALS: Ht 170.2 cm; Wt 74.8 kg
[~2023-12-14 16:52] MED LIST changes: +*INS REG3 SQ; +ALBU2.5V38 IH; +ALLA266C2 TP; -HYDR-4076 GT; +HYDR-500 GT; -HYDR100T27 GT; -IPRA3AMP23 IH; +LACT1CAP69 GT; -LEVO500P10 IV; -METR500T PO; +MIDO10TA GT; -MIDO5TAB4 PO; +NYST15OI2 TP; +OMEP40CA21 GT; -ONDA4TAB5 GT; -POLY17PO4 GT; -TRIA15OI2 TP
[2023-12-14] MEDS ORDERED: POLY17PO4 GT (17:53)
[2023-12-14] MEDS ORDERED: FOLI0.8T23 GT (17:53)
[2023-12-14] MEDS ORDERED: CLON0.5T GT (17:53)
[2023-12-14] MEDS ORDERED: ARGI1POW13 GT (17:53)
[2023-12-14] MEDS ORDERED: PEG15DRO2 EACHEYE (17:53)
[2023-12-14 18:17] LABS: BASOPHILS # (AUTO) 0.1 K/uL (0.0-0.2); BASOPHILS % (AUTO) 0.7 % (0.0-2.0); EOSINOPHILS # (AUTO) 1.1 K/uL (0.0-0.7); EOSINOPHILS % (AUTO) 14.3 % (0.0-6.0); HEMATOCRIT 30 % (39-51); HEMOGLOBIN 9.8 g/dL (13.5-17.5); LYMPHOCYTES # (AUTO) 1.1 K/uL (0.8-4.8); LYMPHOCYTES % (AUTO) 15.1 % (20.0-44.0); MEAN CORPUSCULAR HEMOGLOBIN 32 PG (26.0-33.0); MEAN CORPUSCULAR HGB CONC 33 g/dl (31.0-36.0); MEAN CORPUSCULAR VOLUME 98 fL (80-96); MONOCYTES # (AUTO) 0.4 K/uL (0.1-1.30); MONOCYTES % (AUTO) 5.1 % (2.0-12.0); NEUTROPHILS # (AUTO) 4.8 K/uL (1.8-8.9); NEUTROPHILS % (AUTO) 64.8 % (43.0-81.0); PLATELET COUNT (AUTO) 275 K/uL (150-450); RED BLOOD CELL COUNT(AUTO) 3.07 MIL/uL (4.5-6.0); RED CELL DISTRIBUTION WIDTH 15.1 % (11.5-15.0); WHITE BLOOD COUNT (AUTO) 7.5 K/uL (4.3-11.0)
[2023-12-14 18:29] LABS: INR 1.07 (0.91-1.10); PROTHROMBIN TIME 11.3 SECS (9.2-11.1)
[2023-12-14 18:30] LABS: ALBUMIN 2.7 g/dL (3.4-5.0); BILIRUBIN,DIRECT 0.2 mg/dL (0.0-0.2); BILIRUBIN,TOTAL 0.4 mg/dL (0.2-1.0); CALCIUM, SERUM 8.9 mg/dL (8.5-10.1); TOTAL PROTEIN, SERUM 7.6 g/dL (6.4-8.2)
[2023-12-14 18:32] LABS: POTASSIUM 6.3 mmol/L (3.5-5.1)
[2023-12-14 18:33] LABS: CREATININE 9.4 mg/dL (0.6-1.3)
[2023-12-14] MEDS ORDERED: SODIUM POLYSTYRENE SULFONATE 15 G/60 ML BOTTLE ONE (19:44)
[2023-12-14] MEDS ORDERED: DEXTROSE 50%-WATER 50 ML DISP.SYRIN ONE (19:44)
[2023-12-14] MEDS ORDERED: CALCIUM CHLORIDE 1,000 MG/10 ML DISP.SYRIN ONE (19:44)
[2023-12-14] MEDS ORDERED: INSULIN REGULAR, HUMAN 100 UNIT/ML 10 ML VIAL ONE (19:44)
[2023-12-14] MEDS: CALCIUM CHLORIDE 1,000 MG/10 ML DISP.SYRIN IV ONE (19:46)
[2023-12-14] MEDS: DEXTROSE 50%-WATER 50 ML DISP.SYRIN IV ONE (19:46)
[2023-12-14] MEDS: SODIUM POLYSTYRENE SULFONATE 15 G/60 ML BOTTLE PO ONE (19:46)
[2023-12-14] MEDS: INSULIN REGULAR, HUMAN 100 UNIT/ML 10 ML VIAL IV ONE (19:48)
[2023-12-14] MEDS ORDERED: ALBUTEROL FS 2.5 MG/3 ML VIAL.NEB ONE (20:30)
[2023-12-14] MEDS: ALBUTEROL FS 2.5 MG/3 ML VIAL.NEB NEB ONE (20:37)
[2023-12-14] MEDS ORDERED: ZOLPIDEM TARTRATE 5 MG TABLET PO PRN (22:30)
[2023-12-14] MEDS ORDERED: ONDANSETRON HCL/PF 4 MG/2 ML VIAL IVP PRN (22:30)
[2023-12-14] MEDS ORDERED: MAG HYDROX/AL HYDROX/SIMETH 30 ML UDC PO PRN (22:30)
[2023-12-14] MEDS ORDERED: MAGNESIUM HYDROXIDE 30 ML UDC PO PRN (22:30)
[2023-12-14] MEDS ORDERED: ALBUTEROL FS 2.5 MG/3 ML VIAL.NEB IH PRN (22:30)
[2023-12-14] MEDS ORDERED: ACETAMINOPHEN 325 MG TABLET PO PRN (22:30)
[2023-12-14] MEDS ORDERED: Z GUARD REMEDY 4 OZ OINT TP PRN (22:30)
[2023-12-14] MEDS ORDERED: ENOXAPARIN SODIUM 40 MG/0.4 ML DISP.SYRIN SQ SCH (22:30)
[2023-12-14] MEDS: HEPARIN SODIUM, PORCINE 5000 UNITS/1 ML VIAL SQ SCH (23:37)
[2023-12-14 23:39] VITALS: BP 137/64; TEMP 98.3; O2SAT 100
[2023-12-15] MEDS ORDERED: *INSULIN REGULAR(HUMULIN R)HUM 100 UNIT/ML VIAL SQ SCH
[2023-12-15] MEDS: NEPRO 1,000 ML BOTTLE GT PRN (01:46)
[2023-12-15] MEDS: ALBUTEROL FS 2.5 MG/3 ML VIAL.NEB IH SCH (02:11)
[2023-12-15] MEDS: BLOOD SUGAR DIAGNOSTIC 1 EACH STRIP IN SCH (05:51)
[2023-12-15] MEDS: INSULIN REGULAR, HUMAN 100 UNIT/ML 3 ML VIAL SQ PRN (05:57)
[2023-12-15 06:57] LABS: BASOPHILS % (AUTO) 0.6 % (0.0-2.0); EOSINOPHILS # (AUTO) 0.8 K/uL (0.0-0.7); EOSINOPHILS % (AUTO) 12.8 % (0.0-6.0); HEMATOCRIT 33 % (39-51); HEMOGLOBIN 10.8 g/dL (13.5-17.5); LYMPHOCYTES # (AUTO) 1.2 K/uL (0.8-4.8); LYMPHOCYTES % (AUTO) 19.2 % (20.0-44.0); MEAN CORPUSCULAR HEMOGLOBIN 32 PG (26.0-33.0); MEAN CORPUSCULAR HGB CONC 33 g/dl (31.0-36.0); MEAN CORPUSCULAR VOLUME 99 fL (80-96); MONOCYTES # (AUTO) 0.3 K/uL (0.1-1.30); MONOCYTES % (AUTO) 4.9 % (2.0-12.0); NEUTROPHILS # (AUTO) 3.8 K/uL (1.8-8.9); NEUTROPHILS % (AUTO) 62.5 % (43.0-81.0); PLATELET COUNT (AUTO) 265 K/uL (150-450); RED BLOOD CELL COUNT(AUTO) 3.33 MIL/uL (4.5-6.0); RED CELL DISTRIBUTION WIDTH 15.3 % (11.5-15.0); WHITE BLOOD COUNT (AUTO) 6.1 K/uL (4.3-11.0)
[2023-12-15 07:29] LABS: ALBUMIN 2.9 g/dL (3.4-5.0); BILIRUBIN,DIRECT 0.2 mg/dL (0.0-0.2); BILIRUBIN,TOTAL 0.4 mg/dL (0.2-1.0); CALCIUM, SERUM 9.6 mg/dL (8.5-10.1); MAGNESIUM 3.3 mg/dL (1.8-2.4); PHOSPHORUS 5.2 mg/dL (2.5-4.9); POTASSIUM 5.8 mmol/L (3.5-5.1); TOTAL PROTEIN, SERUM 8.2 g/dL (6.4-8.2)
[2023-12-15] MEDS: PANTOPRAZOLE 40 MG TABLET.DR PO SCH (07:30)
[2023-12-15 08:00] VITALS: BP 145/68; TEMP 97.5; O2SAT 100
[2023-12-15 08:12] LABS: THYROID STIMULATING HORMONE 6.09 uIU/mL (0.358-3.74)
[2023-12-15] MEDS: ARGININE/GLUTAMINE/CALCIUM BMB 1 EACH POWD.PACK GT SCH (08:46)
[2023-12-15] MEDS: TETRAHYDROZOLINE HCL BOTTLE EACHEYE SCH (08:46)
[2023-12-15] MEDS: DOCUSATE SODIUM 100 MG CAPSULE PO SCH (08:47)
[2023-12-15] MEDS: POLYETHYLENE GLYCOL 3350 17 GM POWD.PACK GT SCH (08:47)
[2023-12-15] MEDS: ACIDOPHILUS/BULGARICUS 1 EACH TAB.CHEW GT SCH (08:47)
[2023-12-15] MEDS: MIDODRINE HCL (5MG) 5 MG TABLET GT SCH (08:47)
[2023-12-15] MEDS: PROSOURCE / PROSTAT (PYXIS) 30 ML UDC GT SCH (08:47)
[2023-12-15] MEDS: VIT B CMPLX 3/FA/VIT C/BIOTIN 1 TAB TABLET GT SCH (08:47)
[2023-12-15] MEDS: LEVOTHYROXINE SODIUM 25 MCG TABLET GT SCH (08:47)
[2023-12-15] MEDS: INSULIN GLARGINE, 100 UNIT/ML CARTRIDGE SQ SCH (08:49)
[2023-12-15] MEDS ORDERED: HEPARIN SODIUM, PORCINE 5000 UNITS/1 ML VIAL SQ SCH (09:00)
[2023-12-15] MEDS ORDERED: SODIUM POLYSTYRENE SULFONATE 15 G/60 ML BOTTLE PO ONE (09:30)
[2023-12-15] MEDS ORDERED: ANESTHESIA TRAY IN PYXIS 1 EA TRAY MC ONE (10:08)
[2023-12-15] MEDS ORDERED: HEPARIN SODIUM, PORCINE 1,000 UNIT/ML VIAL ONE (10:08)
[2023-12-15] MEDS ORDERED: LIDOCAINE 1% INJ 50 ML MDV IJ ONE (10:08)
[2023-12-15] MEDS: SODIUM POLYSTYRENE SULFONATE 15 G/60 ML BOTTLE RC ONE (10:18)
[2023-12-15] MEDS ORDERED: FENTANYL PF 100MCG/2ML AMPUL ONE (10:37)
[2023-12-15] MEDS ORDERED: IOHEXOL 50 ML IV ONE (10:55)
[2023-12-15 12:00] VITALS: BP 98/56; TEMP 97.3; O2SAT 100
[2023-12-15] MEDS: hydrOXYzine PAMOATE 25 MG CAPSULE GT SCH (12:54)
[2023-12-15] MEDS ORDERED: POLYVINYL ALCOHOL 15 ML BOTTLE EACHEYE PRN (13:30)
[2023-12-15 16:00] VITALS: BP 159/88; TEMP 97.5; O2SAT 100
[2023-12-15 20:00] VITALS: BP 155/72; TEMP 98.2; O2SAT 100
[2023-12-15] MEDS: ATORVASTATIN 10 MG TABLET GT SCH (22:21)
[2023-12-16] VITALS: BP 148/77; TEMP 98.1
[2023-12-16 04:00] VITALS: BP 149/64; TEMP 98.1; O2SAT 100
[2023-12-16 06:26] LABS: CALCIUM, SERUM 9.4 mg/dL (8.5-10.1); MAGNESIUM 2.7 mg/dL (1.8-2.4); POTASSIUM 4.8 mmol/L (3.5-5.1)
[2023-12-16 06:32] LABS: BASOPHILS % (AUTO) 0.3 % (0.0-2.0); EOSINOPHILS # (AUTO) 0.6 K/uL (0.0-0.7); EOSINOPHILS % (AUTO) 8.9 % (0.0-6.0); HEMATOCRIT 29 % (39-51); HEMOGLOBIN 9.3 g/dL (13.5-17.5); LYMPHOCYTES # (AUTO) 0.7 K/uL (0.8-4.8); LYMPHOCYTES % (AUTO) 11.4 % (20.0-44.0); MEAN CORPUSCULAR HEMOGLOBIN 32 PG (26.0-33.0); MEAN CORPUSCULAR HGB CONC 32 g/dl (31.0-36.0); MEAN CORPUSCULAR VOLUME 98 fL (80-96); MONOCYTES # (AUTO) 0.4 K/uL (0.1-1.30); MONOCYTES % (AUTO) 5.7 % (2.0-12.0); NEUTROPHILS # (AUTO) 4.8 K/uL (1.8-8.9); NEUTROPHILS % (AUTO) 73.7 % (43.0-81.0); PLATELET COUNT (AUTO) 285 K/uL (150-450); RED BLOOD CELL COUNT(AUTO) 2.94 MIL/uL (4.5-6.0); RED CELL DISTRIBUTION WIDTH 15.2 % (11.5-15.0); WHITE BLOOD COUNT (AUTO) 6.5 K/uL (4.3-11.0)
[2023-12-16 08:05] VITALS: BP 143/72; TEMP 98.6; O2SAT 100
[2023-12-16 12:00] VITALS: BP 143/68; TEMP 98.4; O2SAT 100
[2023-12-16 16:30] VITALS: BP 116/66; TEMP 98.8; O2SAT 100
[2023-12-16 20:00] VITALS: BP 128/70; TEMP 98.3; O2SAT 100
[2023-12-17] VITALS: BP 126/69; TEMP 98.4; O2SAT 100
[2023-12-17 04:00] VITALS: BP 142/67; TEMP 98.1; O2SAT 100
[2023-12-17 06:36] LABS: BASOPHILS % (AUTO) 0.4 % (0.0-2.0); EOSINOPHILS # (AUTO) 0.7 K/uL (0.0-0.7); EOSINOPHILS % (AUTO) 12.6 % (0.0-6.0); HEMATOCRIT 29 % (39-51); HEMOGLOBIN 9.5 g/dL (13.5-17.5); LYMPHOCYTES % (AUTO) 17.8 % (20.0-44.0); MEAN CORPUSCULAR HEMOGLOBIN 32 PG (26.0-33.0); MEAN CORPUSCULAR HGB CONC 32 g/dl (31.0-36.0); MEAN CORPUSCULAR VOLUME 99 fL (80-96); MONOCYTES # (AUTO) 0.5 K/uL (0.1-1.30); MONOCYTES % (AUTO) 8.2 % (2.0-12.0); NEUTROPHILS # (AUTO) 3.4 K/uL (1.8-8.9); PLATELET COUNT (AUTO) 281 K/uL (150-450); RED BLOOD CELL COUNT(AUTO) 2.99 MIL/uL (4.5-6.0); RED CELL DISTRIBUTION WIDTH 15.4 % (11.5-15.0); WHITE BLOOD COUNT (AUTO) 5.6 K/uL (4.3-11.0)
[2023-12-17 07:04] LABS: CALCIUM, SERUM 9.6 mg/dL (8.5-10.1); CREATININE 5.6 mg/dL (0.6-1.3); MAGNESIUM 2.6 mg/dL (1.8-2.4); POTASSIUM 4.9 mmol/L (3.5-5.1)
[2023-12-17 08:00] VITALS: BP 128/64; TEMP 98.2; O2SAT 99
[2023-12-17] MEDS: DOCUSATE SODIUM LIQ 100 MG/10 ML UDC GT SCH (08:32)
[2023-12-17] MEDS: PANTOPRAZOLE 40 MG/PACK PACK NG SCH (08:33)
[2023-12-17] MEDS: NEPRO 1,000 ML BOTTLE GT PRN (08:37)
[2023-12-17 12:00] VITALS: BP 129/72; TEMP 98.1; O2SAT 99
[2023-12-17 16:00] VITALS: BP 125/59; TEMP 98.4; O2SAT 100
[2023-12-17 20:00] VITALS: BP 136/68; TEMP 98.5; O2SAT 100
[2023-12-18] VITALS: BP 146/70; TEMP 98.3; O2SAT 100
[2023-12-18 04:00] VITALS: BP 135/75; TEMP 98.1; O2SAT 100
[2023-12-18] MEDS: DEXTROSE 50%-WATER 50 ML DISP.SYRIN IV PRN (06:03)
[2023-12-18 08:00] VITALS: BP 150/69; TEMP 98.8; O2SAT 100
[2023-12-18 08:00] LABS: CALCIUM, SERUM 9.6 mg/dL (8.5-10.1); CREATININE 7.1 mg/dL (0.6-1.3); POTASSIUM 4.9 mmol/L (3.5-5.1)
[2023-12-18 12:00] VITALS: BP 145/79; TEMP 98.6; O2SAT 100
[2023-12-18] MEDS ORDERED: LIDOCAINE HCL/MPF 1% 30 ML VIAL IJ ONE (13:48)
[2023-12-18] MEDS ORDERED: IODIXANOL 320MG/ML 50 ML IV ONE (14:08)
[2023-12-18 16:00] VITALS: BP 154/75; TEMP 97.2; O2SAT 100
[2023-12-18 20:00] VITALS: BP 139/64; TEMP 98.2; O2SAT 100
[2023-12-18] MEDS ORDERED: ALBUTEROL FS 2.5 MG/3 ML VIAL.NEB IH PRN (20:13)
[2023-12-19] VITALS (8 sets, daily range): BP systolic 141–161; BP diastolic 66–75; TEMP 97.5–98.6; O2SAT 96–100
[2023-12-19] MEDS: ALBUTEROL FS 2.5 MG/3 ML VIAL.NEB IH SCH (01:49)
[2023-12-19 06:52] LABS: BASOPHILS % (AUTO) 0.2 % (0.0-2.0); EOSINOPHILS # (AUTO) 0.7 K/uL (0.0-0.7); EOSINOPHILS % (AUTO) 8.5 % (0.0-6.0); HEMATOCRIT 29 % (39-51); HEMOGLOBIN 9.2 g/dL (13.5-17.5); LYMPHOCYTES # (AUTO) 0.5 K/uL (0.8-4.8); LYMPHOCYTES % (AUTO) 5.8 % (20.0-44.0); MEAN CORPUSCULAR HEMOGLOBIN 32 PG (26.0-33.0); MEAN CORPUSCULAR HGB CONC 32 g/dl (31.0-36.0); MEAN CORPUSCULAR VOLUME 100 fL (80-96); MONOCYTES # (AUTO) 0.5 K/uL (0.1-1.30); MONOCYTES % (AUTO) 5.4 % (2.0-12.0); NEUTROPHILS % (AUTO) 80.1 % (43.0-81.0); PLATELET COUNT (AUTO) 270 K/uL (150-450); RED BLOOD CELL COUNT(AUTO) 2.88 MIL/uL (4.5-6.0); RED CELL DISTRIBUTION WIDTH 14.4 % (11.5-15.0); WHITE BLOOD COUNT (AUTO) 8.7 K/uL (4.3-11.0)
[2023-12-19 07:40] LABS: CALCIUM, SERUM 9.2 mg/dL (8.5-10.1); CREATININE 4.7 mg/dL (0.6-1.3)
[2023-12-19 07:48] LABS: IRON, SERUM 72 ug/dl (50-175); TOTAL IRON BINDING CAPACITY 137 ug/dl (250-450)
[2023-12-20] VITALS (10 sets, daily range): BP systolic 120–130; BP diastolic 60–64; TEMP 97.5–98.8; O2SAT 99–100
[2023-12-20 06:32] LABS: BASOPHILS % (AUTO) 0.6 % (0.0-2.0); EOSINOPHILS # (AUTO) 1.2 K/uL (0.0-0.7); EOSINOPHILS % (AUTO) 15.2 % (0.0-6.0); HEMATOCRIT 28 % (39-51); LYMPHOCYTES # (AUTO) 1.2 K/uL (0.8-4.8); MEAN CORPUSCULAR HEMOGLOBIN 32 PG (26.0-33.0); MEAN CORPUSCULAR HGB CONC 32 g/dl (31.0-36.0); MEAN CORPUSCULAR VOLUME 100 fL (80-96); MONOCYTES # (AUTO) 0.5 K/uL (0.1-1.30); MONOCYTES % (AUTO) 6.1 % (2.0-12.0); NEUTROPHILS # (AUTO) 4.8 K/uL (1.8-8.9); NEUTROPHILS % (AUTO) 63.1 % (43.0-81.0); PLATELET COUNT (AUTO) 252 K/uL (150-450); RED BLOOD CELL COUNT(AUTO) 2.83 MIL/uL (4.5-6.0); RED CELL DISTRIBUTION WIDTH 14.6 % (11.5-15.0); WHITE BLOOD COUNT (AUTO) 7.7 K/uL (4.3-11.0)
[2023-12-20 06:45] LABS: CALCIUM, SERUM 9.6 mg/dL (8.5-10.1); CREATININE 6.4 mg/dL (0.6-1.3); POTASSIUM 4.3 mmol/L (3.5-5.1)
[2023-12-20] MEDS ORDERED: ROPIVACAINE HCL 0.5% 5 MG/ML 30ML VIAL ONE (14:00)
[2023-12-20] MEDS ORDERED: LIDOCAINE HCL/MPF 1% 30 ML VIAL IJ ONE (14:00)
[2023-12-21] VITALS: BP 134/68; TEMP 98.4; O2SAT 99
[2023-12-21 04:14] VITALS: BP 146/76; TEMP 98.6; O2SAT 99
[2023-12-21 08:00] VITALS: BP 159/82; TEMP 97.7; O2SAT 99
[2023-12-21 12:00] VITALS: BP 149/81; TEMP 97.5; O2SAT 99
[2023-12-21 16:00] VITALS: BP 138/69; TEMP 97.9; O2SAT 100
[2023-12-21 20:00] VITALS: BP 144/71; TEMP 98.6; O2SAT 100
[2023-12-22] VITALS: BP 147/68; TEMP 98.8; O2SAT 100
[2023-12-22 04:00] VITALS: BP 125/66; TEMP 98.6; O2SAT 100
[2023-12-22 06:51] LABS: BASOPHILS % (AUTO) 0.3 % (0.0-2.0); EOSINOPHILS # (AUTO) 1.4 K/uL (0.0-0.7); HEMATOCRIT 30 % (39-51); HEMOGLOBIN 9.7 g/dL (13.5-17.5); LYMPHOCYTES # (AUTO) 1.1 K/uL (0.8-4.8); LYMPHOCYTES % (AUTO) 14.4 % (20.0-44.0); MEAN CORPUSCULAR HEMOGLOBIN 32 PG (26.0-33.0); MEAN CORPUSCULAR HGB CONC 32 g/dl (31.0-36.0); MEAN CORPUSCULAR VOLUME 98 fL (80-96); MONOCYTES # (AUTO) 0.4 K/uL (0.1-1.30); MONOCYTES % (AUTO) 5.4 % (2.0-12.0); NEUTROPHILS # (AUTO) 4.7 K/uL (1.8-8.9); NEUTROPHILS % (AUTO) 61.9 % (43.0-81.0); PLATELET COUNT (AUTO) 235 K/uL (150-450); RED BLOOD CELL COUNT(AUTO) 3.07 MIL/uL (4.5-6.0); RED CELL DISTRIBUTION WIDTH 13.9 % (11.5-15.0); WHITE BLOOD COUNT (AUTO) 7.7 K/uL (4.3-11.0)
[2023-12-22 07:00] LABS: CALCIUM, SERUM 9.2 mg/dL (8.5-10.1); CREATININE 6.7 mg/dL (0.6-1.3); POTASSIUM 4.4 mmol/L (3.5-5.1)
[2023-12-22 08:00] VITALS: BP 118/67; TEMP 97.9; O2SAT 100
[2023-12-22 12:00] VITALS: BP 124/73; TEMP 99.1; O2SAT 100
[2023-12-22 16:00] VITALS: BP 137/92; TEMP 98.4; O2SAT 100
[2023-12-22 20:00] VITALS: BP 158/81; TEMP 98.9; O2SAT 100
[2023-12-23] VITALS: BP 145/68; TEMP 98.6; O2SAT 100
[2023-12-23 04:00] VITALS: BP 157/70; TEMP 98.5; O2SAT 100
[2023-12-23 08:00] VITALS: BP 154/52; TEMP 99; O2SAT 100
[2023-12-23 12:00] VITALS: BP 136/69; TEMP 97.9; O2SAT 100
[2023-12-23 16:00] VITALS: BP 132/72; TEMP 99; O2SAT 100
[2023-12-23 17:00] VITALS: BP 132/72
== END 2023-12-23 20:08 | DRG 252 ==
LOC: ER 16:57 → TELE1 21:24
PROVIDERS: ADMIT Nurse Practitioner Family; ATTEND Internal Medicine
PROC: 5A1955Z Respiratory Ventilation, Greater than 96 Consecutive Hours (ICD-10-PCS; 2023-12-14)
PROC: 0JH63XZ Insertion of Tunneled Vascular Access Device into Chest Subcutaneous Tissue and Fascia, Percutaneous Approach (ICD-10-PCS; principal; 2023-12-15)
PROC: 02HV33Z Insertion of Infusion Device into Superior Vena Cava, Percutaneous Approach (ICD-10-PCS; 2023-12-15)
PROC: B518YZA Fluoroscopy of Superior Vena Cava using Other Contrast, Guidance (ICD-10-PCS; 2023-12-15)
PROC: 5A1D70Z Performance of Urinary Filtration, Intermittent, Less than 6 Hours Per Day (ICD-10-PCS; 2023-12-15)
PROC: B50WYZZ Plain Radiography of Dialysis Shunt/Fistula using Other Contrast (ICD-10-PCS; 2023-12-18)
PROC: 03770ZZ Dilation of Right Brachial Artery, Open Approach (ICD-10-PCS; 2023-12-20)
PROC: 03L70ZZ Occlusion of Right Brachial Artery, Open Approach (ICD-10-PCS; 2023-12-20)
DX: T82.510A Breakdown (mechanical) of surgically created arteriovenous fistula, initial encounter (principal); G93.41 Metabolic encephalopathy; N18.6 End stage renal disease; I12.0 Hypertensive chronic kidney disease with stage 5 chronic kidney disease or end stage renal disease; E87.1 Hypo-osmolality and hyponatremia; Z99.11 Dependence on respirator [ventilator] status; J96.10 Chronic respiratory failure, unspecified whether with hypoxia or hypercapnia; I69.351 Hemiplegia and hemiparesis following cerebral infarction affecting right dominant side; E87.5 Hyperkalemia; Y92.89 Other specified places as the place of occurrence of the external cause; Y83.2 Surgical operation with anastomosis, bypass or graft as the cause of abnormal reaction of the patient, or of later complication, without mention of misadventure at the time of the procedure; D64.9 Anemia, unspecified; E11.22 Type 2 diabetes mellitus with diabetic chronic kidney disease; E11.65 Type 2 diabetes mellitus with hyperglycemia; E87.70 Fluid overload, unspecified; E88.09 Other disorders of plasma-protein metabolism, not elsewhere classified; Z79.4 Long term (current) use of insulin; Z93.0 Tracheostomy status; Z93.1 Gastrostomy status; R13.10 Dysphagia, unspecified; Z99.2 Dependence on renal dialysis; M89.8X9 Other specified disorders of bone, unspecified site; Z86.74 Personal history of sudden cardiac arrest; I25.2 Old myocardial infarction; S30.810A Abrasion of lower back and pelvis, initial encounter; X58.XXXA Exposure to other specified factors, initial encounter; Y93.9 Activity, unspecified; Y92.129 Unspecified place in nursing home as the place of occurrence of the external cause; Y99.9 Unspecified external cause status; Y84.8 Other medical procedures as the cause of abnormal reaction of the patient, or of later complication, without mention of misadventure at the time of the procedure
CPT/HCPCS: 31720; 36415; 71045-TC; 80048-TC; 80076-TC; 82962-TC; 83540-TC; 83735-TC; 84100-TC; 84443-TC; 85025-TC; 85610-TC; 86850-TC; 87081-TC; 90935-TC; 93930-TC; 94003-TC; 94760-TC; 94762-TC; 94799-TC; 99082-TC; A4217; A4223; A6403; A7526; C1750; C1769; G0378; J0690; J1644; J1815; J2704; J2795; J3010; J3490; J7030; J7050; J7070; Q0177; Q9967

== ENCOUNTER 2024-09-17 10:41 | Emergency (ER) | payer MEDICARE, OTHER ==
[~2024-09-17] VITALS: Ht 170.2 cm; Wt 76.7 kg
[~2024-09-17 10:41] MED LIST changes: -ACET-868 PO; -ALLA266C2 TP; +ARGI1POW13 GT; -CHLO473M5 MM; +CLON0.5T GT; -FOLI0.8T2 GT; +FOLI0.8T23 GT; -NYST15OI2 TP; +PEG15DRO2 EACHEYE; -POLY15DR40 EACHEYE; +POLY17PO4 GT
[2024-09-17] MEDS ORDERED: DIATR MEGLU/DIATRIZOATE SODIUM 30 ML BOTTLE (GASTROGRAPHIN) ONE (10:50)
[2024-09-17 10:54] VITALS: BP 169/80; TEMP 97.9; O2SAT 100
[2024-09-17] MEDS: DIATR MEGLU/DIATRIZOATE SODIUM 30 ML BOTTLE (GASTROGRAPHIN) PO ONE (10:59)
== END 2024-09-17 11:10 ==
LOC: ER 10:43
DX: K94.23 Gastrostomy malfunction (principal); I25.2 Old myocardial infarction; E11.22 Type 2 diabetes mellitus with diabetic chronic kidney disease; E11.51 Type 2 diabetes mellitus with diabetic peripheral angiopathy without gangrene; N18.6 End stage renal disease; Z79.890 Hormone replacement therapy; Z86.74 Personal history of sudden cardiac arrest; Z99.2 Dependence on renal dialysis; Z79.899 Other long term (current) drug therapy
CPT/HCPCS: 99284; 43762; 74018; Q9963 ×2